=== PATIENT | male | born 1950 | race Caucasian/White ===

== ENCOUNTER → 2016-12-15 | Day surgery (SDC) | payer OTHER, MEDICARE ==
[2016-12-08 12:24] VITALS: Ht 175.3 cm; Wt 97.7 kg
[~2016-12-15] VITALS: Ht 175.3 cm; Wt 97.7 kg
[~2016-12-15] MED LIST: ACIT1CAP PO; ALBUAER2 INH; ASPI81TA28 PO; ASTN NAE; ATOR-26 PO; ATROPINE SULFATE 0.1 MG/ML 5ML SYR IV PRN; BETA0.053 TOP; BUPIVACAINE 0.5 % 5 MG/1 ML MPF 30ML VIAL ONE; CALC-5 PO; CEFAZOLIN 2000 MG/60 ML D5W IV SCH; EPP3/2 IM; EpHEDrine SULFATE INJ 50 MG/ML AMP IV PRN; FENTANYL CITRATE INJ 50 MCG/1 ML 2 ML VIAL IV PRN; FENTANYL CITRATE INJ 50 MCG/1 ML 2 ML VIAL ONE; FLNIN NAE; FLUMAZENIL 0.1 MG/1 ML 10 ML VIAL IV PRN; GABA-113 PO; GLC/500 PO; HYDR-5688 PO; IPRA0.03 NAE; LABETALOL HCL IV 5 MG/ML 20ML IV PRN; LACTATED RINGER'S 1000ML 1,000 ML IV SCH; LEVO150T PO; LIDOCAINE HCL 1% 20 ML VIAL ONE; LIDOCAINE HCL 2% 2 ML VIAL (20MG/ML) ONE; LISI-787 PO; MEPERIDINE HCL 25 MG/ML CARP IV PRN; METO25TA3 PO; MIDAZOLAM HCL 1 MG/ML 2ML VIAL ONE; MOME0.1C33 EXT; NALOXONE HCL 0.4 MG/1 ML VIAL/CARP IV PRN; NTRGSL/4 UT; ONDANSETRON INJ 2 MG/ML 2 ML VIAL IV PRN; OXYCODONE/ACETAMINOPHEN 5-325 TAB PO PRN; PHENYLEPHRINE 100MCG/ML 5ML SYR IV PRN; PIME1CRE9 TOP; PLMIN90 IN; PRLSR20 PO; PROPOFOL IV EMULSION 10 MG/ML 20 ML VIAL IV ONE; PRVIN525X INH; SODIUM CHLORIDE 0.9% 1000ML 1,000 ML IV SCH; TADA10TA PO; TICA1TAB PO; [UNRECOGNIZED DRUG - CODE] TOP
--- NOTE | 2016-12-15 08:29 | History & Physical Bridge - [place] ---
H&P Re-Evaluation Bridge Note: I have examined the patient, reviewed the History & Physical and in the interval since the performance of the History & Physical I have noted the following changes of clinical significance: No changes noted
[2016-12-15 09:58] VITALS: TEMP 36.5
--- NOTE | 2016-12-15 09:59 | [facility] Post Operative Brief Note ---
Immediate Operative Summary Operative Date Dec 15, 2016. Pre-Operative Diagnosis Right Index Finger Mass, Osteoarthritis Post-Operative Diagnosis Same Procedure(s) Performed Right Index Finger Mass Excision, REMOVAL SPUR Surgeon Dr Leyva Compensation Vice President Surgeon(s) Ginna Estrella PA-C Estimated Blood Loss 0ml Findings ABOVE Specimens None Anesthesia LOCAL IV SEDATION Complication(s) None Disposition
--- NOTE | 2016-12-15 10:06 | Discharge Instructions-SurgCtr ---
Discharge Instructions Visit Reason for Visit: Right Index Finger Mass, Osteoarthritis Joint Discharge Discharge Diagnosis / Problem: SAME ABOVE Discharge Goals Goal(s): Decrease discomfort, Improve function Medications Stopped Medications Name(s): METFORMIN. LAST DOSE TUESDAY 12/12 Activity Recommendations Activity Limitations: as noted below Lifting Limitations: until after follow-up appointment Exercise/Sports Limitations: rest today, until after follow-up appointment Shower/Bathe: may shower/bathe in 3 days Anesthesia . Post Anesthesia Instructions: If you have had General Anesthesia or IV Sedation: * Do not drive today. * Resume driving when surgeon permits. * Do not make important decisions or sign legal documents today. * Call surgeon for: 1. Temperature elevations greater than 101 degrees F. 2. Uncontrollable pain. 3. Excessive bleeding. 4. Persistent nausea and vomiting. 5. Medication intolerance (nausea, vomiting or rash). * For nausea and vomiting use only clear liquids such as: tea, soda, bouillon until nausea subsides, then gradually increase diet as tolerated. * If you have any concerns or questions, call your surgeon's office. If physician is unavailable and it is an emergency, call 911 or go to the nearest emergency room. . Instructions / Follow-Up Instructions / Follow-Up MEDICATIONS: * Resume previous medications unless instructed otherwise by your surgeon. * Always take pain medication on a full stomach or with food to avoid upset stomach. * Do not drink alcohol or drive while taking narcotics. * Ibuprofen or Tylenol may be taken if narcotic not needed. SPECIAL CARE INSTRUCTIONS: __ None _X_ Keep extremity elevated and iced x 48 hours; apply ice 20-30 minutes 8-10 times/day. May remove at night. __ Sling __24 hrs/day __ Remove at night __ Shoulder Immobilizer __ 24 hrs/day __ Remove at night _X_ Dressing __ Maintain until seen in office, may shower with plastic over site __ Remove dressings in 36 hours and then may shower _X_ Cover incisions with band-aids after showering __ Do not remove steri-strips Call physician if chills or temperature rises above 102 degrees or pain unrelieved by prescribed pain medications at . LIMIT FLEXION OF RIGHT INDEX FINGER UNTIL SEEN IN THE OFFICE 10-14 DAYS POST OP . Diet Recommendations Home Diet: resume previous diet Procedures Procedures Performed: Right Index Finger Mass Excision, REMOVAL SPUR Medical Emergencies . Who to Call and When: Medical Emergencies: If at any time you feel your situation is an emergency, please call 911 immediately. . Non-Emergent Contact Non-Emergency issues call your: Primary Care Provider . . "Provider Documentation" section prepared by Kvgn Estrella.
--- NOTE | 2016-12-15 10:19 | Anesthesia Progress Nt - [facility] ---
Anesthesia Post Op Note Date & Time Dec 15, 2016 at 10:20 Vital Signs Pain Intensity: 0 Vital Signs Past 12 Hours Date Time Temp Pulse Resp B/P Pulse Ox O2 Delivery O2 Flow Rate FiO2 12/15/16 09:58 36.5 68 16 105/56 98 Room Air 12/15/16 08:16 36.0 65 18 118/67 98 Room Air Notes Mental Status: alert / awake / arousable, participated in evaluation Pt Amnestic to Procedure: Yes Nausea / Vomiting: adequately controlled Pain: adequately controlled Airway Patency, RR, SpO2: stable & adequate BP & HR: stable & adequate Hydration State: stable & adequate Anesthetic Complications: no major complications apparent
--- NOTE | 2016-12-15 10:35 | OPERATIVE REPORT ---
DATE OF OPERATION: 12/15/2016 PREOPERATIVE DIAGNOSIS: Painful mucous cyst, proximal interphalangeal joint, right index finger with associated spur. POSTOPERATIVE DIAGNOSIS: Same. PROCEDURE: Excision of mucous cyst and spur proximal interphalangeal joint, right index finger. SURGEON: Dr. Leyva. HABILITATIVE INTERVENTIONIST: Kvng Estrella PA-C. ANESTHESIOLOGIST: Dr. Navas. ANESTHESIA: Local with IV sedation. DRAINS: None. COMPLICATIONS: None. CONDITION: The patient tolerated the procedure well and returned to the recovery room in apparent satisfactory condition. INDICATIONS FOR SURGERY: Andrew is a 66-year-old male who has had a draining cyst in the dorsal aspect of his PIP joint index finger that has been bothering him for quite some time, elected to go ahead and remove it. The procedure, expected outcomes, side effects, and risks were all explained in detail prior to surgery, explained possible recurrence of 5%. OPERATION AND FINDINGS: PROCEDURE: The patient was taken to the OR at which time he was placed supine on the litter with an arm board. We then anesthetized his finger with 1% Xylocaine. We then prepped and draped in usual sterile fashion for surgery. He was on a blood thinner, without him on that we thought we could do the case stopping it. We then prepped the hand in usual sterile fashion. We used a 5/8 inch [place] drain as a tourniquet and an Esmarch. We Esmarched the finger and then made an oblique incision over the PIP joint. The cyst was a lot smaller than it appeared on the skin. We dissected down into the lateral portion of the tendon where it was coming out of the joint. We removed the cyst in whole. We then went into the interval in the tendon and went into the joint and removed the spur and did a little synovectomy of the PIP joint. Wound then was copiously irrigated. We closed the rent and then the tendon with a 4-0 Vicryl suture. We then used electrocautery to control any areas of bleeding and then closed the skin with 4-0 nylon sutures. We placed a sterile dressing of Xeroform, 2 x 2s, Matt and Coban and returned to recovery room in apparent satisfactory condition. I attest to the content of the Intraoperative Record and any orders documented therein. Any exceptions are noted below. JONNY
[2016-12-15 10:45] VITALS: BP 129/64; PULSE 60; O2SAT 99
== END | disposition home or self-care (01) ==
LOC: X.SURG 07:54
PROVIDERS: ATTEND Orthopaedic Surgery
DX: M25.841 Other specified joint disorders, right hand (principal); M77.9 Enthesopathy, unspecified; M79.644 Pain in right finger(s); I10 Essential (primary) hypertension; E11.9 Type 2 diabetes mellitus without complications; G47.33 Obstructive sleep apnea (adult) (pediatric)

== ENCOUNTER 2023-05-24 07:18 | Observation (INO) ==
--- NOTE | 2023-04-19 10:40 | PAT Medication Instructions ---
Medication Instructions Date of Service April 19, 2023 Home Medications Medication Instructions Recorded Margoth Vazquez #1 ea 03/24/23 acitretin 10 mg capsule 10 mg PO QAM albuterol sulfate 2.5 mg/3 mL (0.083 %) solution for nebulization 2.5 mg inhal ation QID PRN albuterol sulfate 90 mcg/actuation aerosol inhaler 1 puff inhalation Q6H PRN aspirin 81 mg tablet,delayed release 81 mg PO QAM atorvastatin 80 mg tablet 80 mg PO QDD azelastine 205.5 mcg (0.15 %) nasal spray 2 spray intranasal BID betamethasone dipropionate 0.05 % topical ointment 1 applic topical UD calcipotriene 0.005 % topical cream 1 applic topical UD calcium carbonate 500 mg-vitamin D3 5 mcg (200 unit) tablet (Oyster Shell Calcium-Vitamin D3) 2 tab PO QAM cetirizine 10 mg tablet 10 mg PO QAM epinephrine 0.3 mg/0.3 mL injection syringe 0.3 mg IM Q3H PRN fluocinolone acetonide oil 0.01 % ear drops 5 drp otic (ear) 2XWK lisinopril 20 mg-hydrochlorothiazide 12.5 mg tablet 1 tab PO QAM metformin 500 mg tablet 500 mg PO BID metoprolol succinate 25 mg tablet,extended release 24 hr 25 mg PO QAM nitroglycerin 0.4 mg sublingual tablet 0.4 mg sublingual UD PRN omeprazole 20 mg tablet,delayed release 20 mg PO HS levothyroxine 175 mcg tablet 175 mcg PO QAM amoxicillin 875 mg-potassium clavulanate 125 mg tablet 1 tab PO BID budesonide 0.5 mg/2 mL suspension for nebulization 0.5 mg irrigation QAM fluticasone furoate 200 mcg-vilanterol 25 mcg/dose inhalation powder (Breo Ellipta) 1 inh inhalation QAM guaifenesin 1,200 mg tablet, extended release 12 hr (Mucinex) 1,200 mg PO BID montelukast 10 mg tablet (Singulair) 10 mg PO PM tamsulosin 0.4 mg capsule 0.4 mg PO QPM Continue as directed atorvastatin 80 mg tablet 80 mg PO QDD fluocinolone acetonide oil 0.01 % ear drops 5 drp otic (ear) 2XWK nitroglycerin 0.4 mg sublingual tablet 0.4 mg sublingual UD PRN(if needed) epinephrine 0.3 mg/0.3 mL injection syringe 0.3 mg IM Q3H PRN(if needed) STOP taking 2 weeks before surgery (or as soon as possible if surgery is within 2 weeks) acitretin 10 mg capsule 10 mg PO QAM-unless directed otherwise by prescribing provider STOP taking 24 hours before surgery betamethasone dipropionate 0.05 % topical ointment 1 applic topical UD calcipotriene 0.005 % topical cream 1 applic topical UD DO NOT take the morning of surgery calcium carbonate 500 mg-vitamin D3 5 mcg (200 unit) tablet (Oyster Shell Calcium-Vitamin D3) 2 tab PO QAM cetirizine 10 mg tablet 10 mg PO QAM lisinopril 20 mg-hydrochlorothiazide 12.5 mg tablet 1 tab PO QAM metformin 500 mg tablet 500 mg PO BID guaifenesin 1,200 mg tablet, extended release 12 hr (Mucinex) 1,200 mg PO BID Take morning of surgery With a small sip of water, OTHERWISE NOTHING TO EAT OR DRINK AFTER MIDNIGHT: albuterol sulfate 2.5 mg/3 mL (0.083 %) solution for nebulization 2.5 mg inhalation QID PRN(if needed) albuterol sulfate 90 mcg/actuation aerosol inhaler 1 puff inhalation Q6H PRN(use if needed; please bring with you to hospital day of surgery if possible) aspirin 81 mg tablet,delayed release 81 mg PO QAM (unless directed otherwise by surgeon) azelastine 205.5 mcg (0.15 %) nasal spray 2 spray intranasal BID metoprolol succinate 25 mg tablet,extended release 24 hr 25 mg PO QAM levothyroxine 175 mcg tablet 175 mcg PO QAM amoxicillin 875 mg-potassium clavulanate 125 mg tablet 1 tab PO BID budesonide 0.5 mg/2 mL suspension for nebulization 0.5 mg irrigation QAM fluticasone furoate 200 mcg-vilanterol 25 mcg/dose inhalation powder (Breo Ell ipta) 1 inh inhalation QAM Take evening before surgery albuterol sulfate 2.5 mg/3 mL (0.083 %) solution for nebulization 2.5 mg inhalation QID PRN(if needed) albuterol sulfate 90 mcg/actuation aerosol inhaler 1 puff inhalation Q6H PRN(use if needed; please bring with you to hospital day of surgery if possible) azelastine 205.5 mcg (0.15 %) nasal spray 2 spray intranasal BID metformin 500 mg tablet 500 mg PO BID omeprazole 20 mg tablet,delayed release 20 mg PO HS amoxicillin 875 mg-potassium clavulanate 125 mg tablet 1 tab PO BID guaifenesin 1,200 mg tablet, extended release 12 hr (Mucinex) 1,200 mg PO BID montelukast 10 mg tablet (Singulair) 10 mg PO PM tamsulosin 0.4 mg capsule 0.4 mg PO QPM Other Notes If you have any questions please call us at [phone] or [phone] or [phone] or [phone]
--- NOTE | 2023-04-23 08:19 | Anesthesiology Consultation ---
Date of Service April 23, 2023 Assessment & Plan (1) Encounter for pre-operative examination: - Check BSG AM DOS - COVID screening: Per assessment on 04/23: No known COVID-19 positive contacts or current COVID-19 related symptoms. Travel screen negative. Patient vaccinated. At surgeon discretion if preop Covid testing being done. - Outpatient joint assessment: Pt currently scheduled for inpatient pathway. If surgeon requests review for outpatient joint pathway, patient is not recommended candidate for outpatient joint program from anesthesia standpoint. - Cardiology visit (03/26/23): "Patient anticipates upcoming right total knee arthroplasty end of April 2023. He presents today feeling relatively well. He is limited by right knee pain. Not as active as he would like to be. He reports mild shortness of breath with activities but feels this is due to deconditioning and weight. He reports intermittent left-sided chest discomfort described as an ache. Comes and goes randomly. Not associated with exertion. No radiation. No associated symptoms.. EKG performed today and reviewed personally: Normal sinus rhythm with occasional PVC.. Possible voltage criteria for LVH.. Compared with prior EKG, PVCs now present and nonspecific T-wave abnormality now evident in lateral leads.. recommend dobutamine stress echo for further risk stratification and R/O inducible ischemia. Patient not able to ambulate on treadmill due to knee pain.. Celiac artery dissection.. Dobutamine stress echo prior to knee surgery given history of CAD, dyspnea/atypical chest pain. Repeat fasting lipid panel fall 2022. If LDL continues to increase, add Zetia. Continue atorvastatin." - Awaiting cardiology-ordered stress test (CLAUDIO watt, scheduled 04/29) + final cardiology recommendations (CLAUDIO watt). Chart Review Chart Review: Patient seen in Pre Admission Testing Teaching & Discussion Pre-Anesthesia Teaching/Discussion Notes: Instructed NPO after midnight before surgery,except medications with 15 cc of water. Medication instructions provided according to the PAT guidelines. History Surgery Operation Date: 05/24/23 08:25 Proposed Procedures p Right Total Knee Arthroplasty - Kvng Ramos DO Height/Weight Height: 5 ft 9 in Weight: 110.4 kg Allergies Allergy/AdvReac Type Severity Reaction Status Date / Time bee venom protein (honey bee) Allergy Severe Lung field Verified 04/21/23 13:21 filled with fluid hornet venom Allergy Severe Anaphylaxis Verified 04/16/23 09:01 adhesive Allergy Mild Red rash Verified 04/21/23 13:21 morphine AdvReac Severe Fever, BP Verified 04/21/23 13:21 Medications Home Medications Medication Instructions Recorded Confirmed Last Taken acitretin 10 mg capsule 10 mg PO QAM 04/14/19 04/16/23 04/16/21 albuterol sulfate 2.5 mg/3 mL 2.5 mg inhalation QID PRN SOB 04/14/19 04/16/23 04/18/19 (0.083 %) solution for nebulization albuterol sulfate 90 mcg/actuation 1 puff inhalation Q6H PRN SOB 04/14/19 04/16/23 04/18/19 aerosol inhaler aspirin 81 mg tablet,delayed 81 mg PO QAM 04/14/19 04/16/23 04/16/21 release atorvastatin 80 mg tablet 80 mg PO QDD 04/14/19 04/16/23 03/20/21 azelastine 205.5 mcg (0.15 %) 2 spray intranasal BID 04/14/19 04/16/23 03/21/21 nasal spray betamethasone dipropionate 0.05 % 1 applic topical UD 04/14/19 04/16/23 03/20/21 topical ointment calcipotriene 0.005 % topical cream 1 applic topical UD 04/14/19 04/16/23 03/16/21 calcium carbonate 500 mg-vitamin 2 tab PO QAM 04/14/19 04/16/23 04/16/21 D3 5 mcg (200 unit) tablet (Oyster Shell Calcium-Vitamin D3) cetirizine 10 mg tablet 10 mg PO QAM 04/14/19 04/16/23 04/16/21 epinephrine 0.3 mg/0.3 mL 0.3 mg IM Q3H PRN BEE STINGS 04/14/19 04/16/23 Unknown injection syringe fluocinolone acetonide oil 0.01 % 5 drp otic (ear) 2XWK 04/14/19 04/16/23 04/18/19 ear drops lisinopril 20 1 tab PO QAM 04/14/19 04/16/23 04/16/21 mg-hydrochlorothiazide 12.5 mg tablet metformin 500 mg tablet 500 mg PO BID 04/14/19 04/16/23 04/16/21 metoprolol succinate 25 mg 25 mg PO QAM 04/14/19 04/16/23 04/16/21 tablet,extended release 24 hr nitroglycerin 0.4 mg sublingual 0.4 mg sublingual UD PRN Chest Pain 04/14/19 04/16/23 03/21/21 tablet 1 tablet omeprazole 20 mg tablet,delayed 20 mg PO HS 04/14/19 04/16/23 04/16/21 release levothyroxine 175 mcg tablet 175 mcg PO QAM 03/21/21 04/16/23 04/16/21 Wheeled Walker #1 ea 03/24/23 03/24/23 Unknown budesonide 0.5 mg/2 mL suspension 0.5 mg irrigation QA 04/16/23 04/16/23 Unknown for nebulization fluticasone furoate 200 1 inh inhalation QA 04/16/23 04/16/23 Unknown mcg-vilanterol 25 mcg/dose inhalation powder (Breo Ellipta) guaifenesin 1,200 mg tablet, 1,200 mg PO BID 04/16/23 04/16/23 Unknown extended release 12 hr (Mucinex) montelukast 10 mg tablet 10 mg PO PM 04/16/23 04/16/23 Unknown (Singulair) tamsulosin 0.4 mg capsule 0.4 mg PO QPM 04/16/23 04/16/23 Unknown Past Medical History Medical History Asthma CAD (coronary artery disease) 2016 > stent x1 Follows with Dr. 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, initiated ASA/statin [facility] Vascular monitoring, stable/asymptomatic Chronic sinusitis CKD (chronic kidney disease) Stage 3 DM type 2 (diabetes mellitus, type 2) NIDDM GERD (gastroesophageal reflux disease) Hard of hearing History of basal cell cancer History of COVID-19 x2 Most recent 08/2022- given paxlovid > resolved History of migraine headaches History of myocardial infarction 2016 History of thyroid cancer s/p thyroidectomy/radiation HTN (hypertension) Hyperlipidemia Osteoarthritis Psoriasis Ruptured lumbar disc Sleep apnea CPAP (compliant) Tinnitus Exercise / Class Metabolic Activity III < 4 Walking/Shop/Light housework Past Family History Family History Father Family history of diabetes mellitus Other No family history of adverse response to anesthesia Past Surgical History Surgical History H/O nasal septoplasty + sinuplasty History of arthroscopy of left knee X 2 History of basal cell carcinoma (BCC) excision History of cardiac cath 2016 > stent x1 History of cataract surgery R/L History of colonoscopy History of esophagogastroduodenoscopy (EGD) History of prostate surgery History of removal of cyst Right index finger (+ bone spur) History of repair of anterior cruciate ligament of left knee History of surgery Removal of benign testicular growth History of thyroidectomy History of tonsillectomy History of umbilical hernia repair History of vasectomy Hx of arthroscopy of right knee x2 S/P orchiopexy Status post biopsy of thyroid gland Past Anesthesia History No Hx of Anesthesia Complications and No Family Hx of Anesthesia Complications History of PONV No Hx of PONV and No Hx of Motion Sickness Social History Smoking Status: Former smoker Do You Dip or Chew Tobacco: No Smoking End Date: Quit 1968 Hx Alcohol Use: Yes Alcohol type: beer and hard liquor alcohol intake frequency: holidays/special occasions only Hx Substance Use: No substance use type: does not use Review of Systems Patient denies chest pain, shortness of breath, fever, chills, cough, wheezing, palpitations. Physical Exam Vital Signs VITALS BP 155/701 P 67 TEMP 97.8 SP02 95%RA RESP 18 PHYSICAL Full cervical extension range of motion. Full TMJ range of motion. TMD 3 finger breaths Mallampati Score 3 Dentition: upper partial Lungs: clear throughout to auscultation Cardiac: regular rate and rhythm, no murmurs noted Spine: normal Carotid arteries: negative bruit Extremities: no LE edema Large moustache Lab Results Anesthesia Preop Results Results Anesthesia Widget: WBC 7.06 K/ul (4.8-10.8) 04/23/23 Hgb 13.7 g/dl (14.0-18.0) L 04/23/23 Hct 41.3 % (42.0-52.0) L 04/23/23 Plt 198 K/uL (130-400) 04/23/23 Na 136 mmol/L (136-145) 04/23/23 K 4.0 mmol/L (3.5-5.1) 04/23/23 Cl 101 mmol/L (98-107) 04/23/23 CO2 29 mmol/L (21-32) 04/23/23 BUN 22 mg/dl (6-23) 04/23/23 Creat 0.87 mg/dl (0.6-1.4) 04/23/23 Glucose Level 156 mg/dl (70-99(Fasting)) H 04/23/23 PT 10.6 Seconds (9.0-12.0) 04/23/23 PTT 29.1 Seconds (21.0-31.0) 04/23/23 INR 1.0 (0.9-1.1) 04/23/23 HA1c 6.2 % (4.5-5.6) H 04/23/23 Blood Type O Positive 04/23/23 Antibody Screen NEGATIVE 04/23/23 Testing Electrocardiogram Date: 03/26/23 SR with occasional PVCs at 85bpm. Moderate voltage criteria for LVH, may be normal variant. Chest X-Ray Date: 08/26/22 Findings: + NAD Right-sided pleural thickening appears similar Compared to a prior study and is secondary to subpleural flat noted on prior CT. Redemonstration of few bilateral calcified granulomas. Lungs are otherwise clear with sharp costophrenic angles. No pneumothorax or effusion. Cardiac Catheterization Date: 06/15/16 The index artery for the non-STEMI is a very small second marginal branch from the left circumflex artery, which is not amenable to intervention. An incidental finding is a significant 80% stenosis of the proximal LAD at the takeoff of the diagonal branch, consistent with a complex bifurcation lesion. Recommendations: For the patient to undergo coronary intervention. Transferred to [facility] and stent placed* COVID-19 Risk Screen Screening Information COVID-19 Screen Date: 04/23/23 Exposure 21 Days Family/Household +COVID Last 21 Days: No Exposure 10 Days Any COVID Exposure Last 10 Days: No Symptoms Last 10 Days Experienced COVID Sx Last 10 Days: No + COVID 0-90 Days COVID + in Last 0-90 Days: No
--- NOTE | 2023-05-20 10:33 | History & Physical Report ---
Date of Service May 20, 2023 Assessment & Plan (1) Osteoarthritis of right knee: We will proceed with a right total knee arthroplasty. Postoperatively he will be started on aspirin for DVT prophylaxis and kept overnight in the hospital for postop medical management. He plans to use energy physical therapy upon discharge. History of Present Illness Chief Complaint: Osteoarthritis of the right knee. Primary Care Provider: Christopher Jordan MD Andrew is a pleasant 73-year-old male, who has been dealing with lifetime chronic right knee pain. He was not able to go into [place] because of his right knee pain. It has waxed and waned over the years. It has been really bad over the past year. He has trouble ambulating. He cannot go up and down hills. He cannot do activities that he enjoys. He has been seeing my partners and has had multiple cortisone injections and viscosupplementation. He is still struggling with the knee. X-rays and clinical examination been diagnostic for chronic worsening osteoarthritis of the right knee. After failing conservative treatment, he has elected proceed with a right total knee arthroplasty. Allergies Allergy/AdvReac Type Severity Reaction Status Date / Time bee venom protein (honey bee) Allergy Severe Lung field Verified 04/21/23 13:21 filled with fluid hornet venom Allergy Severe Anaphylaxis Verified 04/16/23 09:01 adhesive Allergy Mild Red rash Verified 04/21/23 13:21 morphine AdvReac Severe Fever, BP Verified 04/21/23 13:21 Home Medications Medication Instructions Recorded Confirmed Type acitretin 10 mg capsule 10 mg PO QAM 04/14/19 04/16/23 History albuterol sulfate 2.5 mg/3 mL 2.5 mg inhalation QID PRN SOB 04/14/19 04/16/23 History (0.083 %) solution for nebulization albuterol sulfate 90 mcg/actuation 1 puff inhalation Q6H PRN SOB 04/14/19 04/16/23 History aerosol inhaler aspirin 81 mg tablet,delayed 81 mg PO QAM 04/14/19 04/16/23 History release atorvastatin 80 mg tablet 80 mg PO QDD 04/14/19 04/16/23 History azelastine 205.5 mcg (0.15 %) 2 spray intranasal BID 04/14/19 04/16/23 History nasal spray betamethasone dipropionate 0.05 % 1 applic topical UD 04/14/19 04/16/23 History topical ointment calcipotriene 0.005 % topical cream 1 applic topical UD 04/14/19 04/16/23 History calcium carbonate 500 mg-vitamin 2 tab PO QAM 04/14/19 04/16/23 History D3 5 mcg (200 unit) tablet (Oyster Shell Calcium-Vitamin D3) cetirizine 10 mg tablet 10 mg PO QAM 04/14/19 04/16/23 History epinephrine 0.3 mg/0.3 mL 0.3 mg IM Q3H PRN BEE STINGS 04/14/19 04/16/23 History injection syringe fluocinolone acetonide oil 0.01 % 5 drp otic (ear) 2XWK 04/14/19 04/16/23 History ear drops lisinopril 20 1 tab PO QAM 04/14/19 04/16/23 History mg-hydrochlorothiazide 12.5 mg tablet metformin 500 mg tablet 500 mg PO BID 04/14/19 04/16/23 History metoprolol succinate 25 mg 25 mg PO QAM 04/14/19 04/16/23 History tablet,extended release 24 hr nitroglycerin 0.4 mg sublingual 0.4 mg sublingual UD PRN Chest Pain 04/14/19 04/16/23 History tablet omeprazole 20 mg tablet,delayed 20 mg PO HS 04/14/19 04/16/23 History release levothyroxine 175 mcg tablet 175 mcg PO QAM 03/21/21 04/16/23 History Wheeled Walker #1 ea 03/24/23 03/24/23 Rx budesonide 0.5 mg/2 mL suspension 0.5 mg irrigation QAM 04/16/23 04/16/23 History for nebulization fluticasone furoate 200 1 inh inhalation QAM 04/16/23 04/16/23 History mcg-vilanterol 25 mcg/dose inhalation powder (Breo Ellipta) guaifenesin 1,200 mg tablet, 1,200 mg PO BID 04/16/23 04/16/23 History extended release 12 hr (Mucinex) montelukast 10 mg tablet 10 mg PO PM 04/16/23 04/16/23 History (Singulair) tamsulosin 0.4 mg capsule 0.4 mg PO QPM 04/16/23 04/16/23 History Past Med/Surg History Medical History Asthma CAD (coronary artery disease) 2016 > stent x1 Follows with Dr. 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, initiated ASA/statin [facility] Vascular monitoring, stable/asymptomatic Chronic sinusitis CKD (chronic kidney disease) Stage 3 DM type 2 (diabetes mellitus, type 2) NIDDM GERD (gastroesophageal reflux disease) Hard of hearing History of basal cell cancer History of COVID-19 x2 Most recent 08/2022- given paxlovid > resolved History of migraine headaches History of myocardial infarction 2016 History of thyroid cancer s/p thyroidectomy/radiation HTN (hypertension) Hyperlipidemia Osteoarthritis Psoriasis Ruptured lumbar disc Sleep apnea CPAP (compliant) Tinnitus Surgical History H/O nasal septoplasty + sinuplasty History of arthroscopy of left knee X 2 History of basal cell carcinoma (BCC) excision History of cardiac cath 2016 > stent x1 History of cataract surgery R/L History of colonoscopy History of esophagogastroduodenoscopy (EGD) History of prostate surgery History of removal of cyst Right index finger (+ bone spur) History of repair of anterior cruciate ligament of left knee History of surgery Removal of benign testicular growth History of thyroidectomy History of tonsillectomy History of umbilical hernia repair History of vasectomy Hx of arthroscopy of right knee x2 S/P orchiopexy Status post biopsy of thyroid gland Family History Father Family history of diabetes mellitus Other No family history of adverse response to anesthesia Social History Smoking Status: Former smoker Second Hand Exposure: No; Do You Dip or Chew Tobacco: No; Hx Alcohol Use: Yes Alcohol type: beer and hard liquor Hx Substance Use: No Preferred Language: Indonesian Communication Ability: Effective Sales Development Associate Required: No Beliefs That Will Affect Care: None Current Living Situation: Spouse Feels Safe at Home: Yes Assistive Devices: Cane, CPAP, Denture - Upper, Glasses, Hearing Aid - Bilateral and Nebulizer Review of Systems All systems reviewed & are unremarkable except as noted in HPI & below. Physical Exam On physical examination of right knee, he has a slight varus deformity. He has tenderness palpation of the distal medial femoral condyle and over the medial joint line.. Constitutional WD/WN, vitals as above Eyes PERRL, conjunctivae normal, anicteric sclerae ENMT external ear and nose normal, oropharynx normal Neck trachea midline, no thyromegaly Respiratory normal respiratory effort, lungs clear to auscultation Cardiovascular RRR, no murmur, no edema Gastrointestinal (Abdomen) normal bowel sounds, soft, nontender, no hepatosplenomegaly Skin no rashes, warm and dry Psychiatric A+Ox3, euthymic affect Results & Data Results & Data Laboratory Results . Diagnostic Findings X-rays of the right knee show advanced medial compartment arthritis with joint space narrowing, osteophyte formation, and biva-lo-yndv articulation. PG Care Time/CCT Total # of Minutes Spent Total Time Spent with Patient: Total time spent is greater than 50% in coordination of care (as documented) at patient's floor/unit and/or counseling patient: Coding Level of Care Code None Diagnoses Osteoarthritis of right knee M17.11
[~2023-05-24 07:18] MED LIST changes: +ACETAMINOPHEN 500 MG TAB PO SCH; -ACIT1CAP PO; -ALBUAER2 INH; -ASPI81TA28 PO; -ASTN NAE; -ATOR-26 PO; -ATROPINE SULFATE 0.1 MG/ML 5ML SYR IV PRN; -BETA0.053 TOP; -BUPIVACAINE 0.5 % 5 MG/1 ML MPF 30ML VIAL ONE; +BUPIVACAINE 0.5 % 5 MG/1 ML PF 10ML VIAL ONE; -CALC-5 PO; -CEFAZOLIN 2000 MG/60 ML D5W IV SCH; -EPP3/2 IM; -EpHEDrine SULFATE INJ 50 MG/ML AMP IV PRN; +FAMOTIDINE 20 MG TAB PO SCH; -FENTANYL CITRATE INJ 50 MCG/1 ML 2 ML VIAL IV PRN; -FENTANYL CITRATE INJ 50 MCG/1 ML 2 ML VIAL ONE; -FLNIN NAE; -FLUMAZENIL 0.1 MG/1 ML 10 ML VIAL IV PRN; -GABA-113 PO; +GABAPENTIN 300 MG CAP PO SCH; -GLC/500 PO; -HYDR-5688 PO; -IPRA0.03 NAE; -LABETALOL HCL IV 5 MG/ML 20ML IV PRN; -LACTATED RINGER'S 1000ML 1,000 ML IV SCH; -LEVO150T PO; -LIDOCAINE HCL 1% 20 ML VIAL ONE; -LIDOCAINE HCL 2% 2 ML VIAL (20MG/ML) ONE; -LISI-787 PO; +LR 500ML BOLUS, THEN 15ML/HR IV SCH; +LR 60ML/HR IV SCH; -MEPERIDINE HCL 25 MG/ML CARP IV PRN; -METO25TA3 PO; -MIDAZOLAM HCL 1 MG/ML 2ML VIAL ONE; -MOME0.1C33 EXT; -NALOXONE HCL 0.4 MG/1 ML VIAL/CARP IV PRN; -NTRGSL/4 UT; -ONDANSETRON INJ 2 MG/ML 2 ML VIAL IV PRN; +ORTHO JOINT MIX INFIL SCH; -OXYCODONE/ACETAMINOPHEN 5-325 TAB PO PRN; -PHENYLEPHRINE 100MCG/ML 5ML SYR IV PRN; -PIME1CRE9 TOP; -PLMIN90 IN; -PRLSR20 PO; -PROPOFOL IV EMULSION 10 MG/ML 20 ML VIAL IV ONE; -PRVIN525X INH; +ROPIVACAINE 0.5% 5 MG/ML 30 ML VIAL ONE; -SODIUM CHLORIDE 0.9% 1000ML 1,000 ML IV SCH; -TADA10TA PO; -TICA1TAB PO; +TRANEXAMIC ACID 1,000 MG **IV Intra-op IV SCH; +TRANEXAMIC ACID 1,000 MG **IV Pre-op IV SCH; -[UNRECOGNIZED DRUG - CODE] TOP; +ceFAZolin 2000MG 2,000 MG/15 ML SYR IV SCH; +dexAMETHasone 4 MG TAB PO SCH
[2023-05-24] MEDS ORDERED: MIDAZOLAM HCL 1 MG/ML 2ML VIAL ONE (08:51)
[2023-05-24] MEDS ORDERED: fentaNYL citrate PF 100 MCG/2 ML VIAL ONE (08:51)
--- NOTE | 2023-05-24 09:09 | History & Physical Bridge Note ---
Date of Service May 24, 2023 History & Physical Bridge Note I have examined the patient, reviewed the History & Physical and in the interval since the performance of the History & Physical I have noted the following changes of clinical significance: no changes noted
[2023-05-24] MEDS ORDERED: ALBUTEROL 0.083% NEBU SOLN 3 ML VIAL INH PRN ×2 (09:11→13:35)
[2023-05-24] MEDS ORDERED: HYDROmorphone INJ 1 MG/ML SYRINGE IV PRN (09:11)
[2023-05-24] MEDS ORDERED: fentaNYL citrate PF 100 MCG/2 ML VIAL IV PRN (09:11)
[2023-05-24] MEDS ORDERED: ePHEDrine sulfate 50 MG/ML AMP IV PRN (09:11)
[2023-05-24] MEDS ORDERED: ATROPINE SULFATE 0.1 MG/ML 10ML SYR IV PRN (09:11)
[2023-05-24] MEDS ORDERED: ONDANSETRON INJ 2 MG/ML 2 ML VIAL IV PRN ×2 (09:11→13:35)
[2023-05-24] MEDS ORDERED: MEPERIDINE HCL 25 MG/ML CARP/VIAL IV PRN (09:11)
[2023-05-24] MEDS ORDERED: ORTHO JOINT ANESTHETIC ONE (09:31)
[2023-05-24] MEDS ORDERED: LIDOCAINE 2% 2 ML VIAL/AMP(20MG/ML) INFIL ONE (10:49)
[2023-05-24] MEDS ORDERED: PROPOFOL IV EMULSION 10 MG/ML 20 ML VIAL IV ONE (10:49)
--- NOTE | 2023-05-24 11:18 | Operative Report ---
PG Post Operative Report Pre & Post Diagnosis Operation Date: 05/24/23 10:00 Pre-Op Diagnosis: Osteoarthritis of right knee Post-Op Diagnosis: Osteoarthritis of right knee I identified the patient and participated in the time-out.: Yes Procedure Operation Date: 05/24/23 10:00 Actual Procedures p Right Total Knee Arthroplasty(Right) - Kvng Ramos DO Surgeon Kvng Ramos DO Process Control Manager Kvng Estrella PA-C Estimated Blood Loss 30 Findings Consistent with Post-Op Diagnosis Specimens Right femoral tibial bone Description of Procedure Implants used: I used a [employer] total knee arthroplasty system with a size 9 standard femur, F tibia, 34 oval patella, and a size 13 medial congruent polyethylene bearing. All components were cemented in place with Biomet cement. Andrew kendrick [facility] for the above procedure. He was seen in the preoperative holding area and the operative extremity was identified and signed. He was given a preoperative antibiotic, TXA, a spinal anesthetic and an adductor nerve block. He was taken back to the operating room and laid on the table in supine position. He was given basic sedation. The operative knee was then prepped and draped in sterile fashion. A timeout was done, and the patient and the operative extremity was properly identified. A midline incision was made directly over the patella. Dissection was taken down to the extensor mechanism. A midvastus arthrotomy was used. The medial retinaculum was released and the fat pad was mostly excised. The knee was flexed and the ACL, PCL, and meniscus were removed. A drill was sent down the center of the femoral canal followed by an intramedullary misa. Off that misa a distal femoral cutting block was placed. 9 mm was resected off the distal femur at 5 of valgus. A posterior referencing AP sizing guide was then placed on the distal femur. The femur measured to be a size 9. 2 drill holes were placed in 3 of external rotation. A 4-in-1 cutting block was then impacted into place. Anterior, posterior, and chamfer cuts were then made. The proximal tibia was then exposed. An external tibial alignment guide was placed. A tibial cut guide was then anchored in place and the proximal tibia was then resected. The posterior aspect of the knee was then opened up and any additional meniscus fragments and osteophytes were removed. The tibia measured to be a size F. The tibial plate was then placed in the appropriate rotation and the tibia was drilled and punched. Trial components were then placed. I used a size 13 medial congruent polyethylene insert. The knee was brought through a full range of motion and felt to be stable. The peg holes for the femoral component were then drilled. The patella was then everted and 9 mm was resected off the posterior aspect of the patella. The patella measured to be a size 34 oval. 3 peg holes were then drilled. A trial patella was placed. The knee was once again brought through a full range of motion and felt to be stable. Trial components were then removed. The surrounding soft tissues were injected with 100 cc of an orthopedic pain control cocktail. All components were then cemented into place with Biomet cement. The final polyethylene insert was then snapped into place. Once cement was dry the tourniquet was deflated. Hemostasis was obtained. A dilute betadyne lavage was then done for 3 minutes. The joint was then irrigated with normal saline solution. The midvastus arthrotomy was then closed with #1 Vicryl suture. The skin was closed with 2-0 Vicryl, 3-0V lock suture, and pasha. A soft compressive dressing was placed. He was then transferred to a hospital bed and taken to the postanesthesia care unit in stable condition. He tolerated the procedure well. Kvng Estrella PA-C, was present for the entire procedure. He was critical for patient positioning, prepping, draping, retraction exposure, wound closure and application of sterile dressing. I attest to the content of the Intraoperative Record and any orders documented therein. Any exceptions are noted below.
--- NOTE | 2023-05-24 12:22 | Anesthesiology Progress Note ---
Date of Service May 24, 2023 Anesthesia Post Procedure Vital Signs Vital Signs: Temp Pulse Pulse Resp BP Pulse Ox O2 Del Method 05/24/23 12:20 36.1 C L 65 12 131/60 96 Room Air 05/24/23 12:10 63 13 127/61 95 Room Air 05/24/23 12:00 65 15 119/85 98 Room Air 05/24/23 11:50 60 15 123/58 L 100 Oxymask 05/24/23 11:40 36 C L 69 21 117/61 99 Oxymask 05/24/23 07:24 36.7 C 68 18 133/64 97 Room Air 05/24/23 07:24 Room Air O2 Flow Rate 05/24/23 12:20 05/24/23 12:10 05/24/23 12:00 05/24/23 11:50 5 05/24/23 11:40 5 05/24/23 07:24 05/24/23 07:24 Notes Mental Status: alert / awake / arousable Patient Amnestic to Procedure: Yes Nausea / Vomiting: adequately controlled Pain: adequately controlled Airway Patency, RR, SpO2: stable & adequate BP & HR: stable & adequate Hydration State: stable & adequate Neuraxial Anesthesia: was administered and sensory block is resolving Anesthetic Complications: no major complications apparent
--- NOTE | 2023-05-24 12:50 | XRay Report ---
XR knee RT 1 or 2V routine HISTORY: 73 years-old Male Surgical Post Op right knee arthroplasty COMPARISON: 03/24/2023 TECHNIQUE: 2 views of the right knee FINDINGS: Total joint arthroplasty with patellar resurfacing. Anterior midline skin pasha are present along w ith expected postoperative soft tissue swelling and deep tissue air. No acute fracture, dislocation o r unexpected opaque foreign body. IMPRESSION: Total joint arthroplasty with expected postoperative changes. ACT 112: Negative or not required by law. The above report was generated using voice recognition software. It may contain grammatical, syntax o r spelling errors. Electronically signed by: Michael Jaimes M.D. 05/24/2023 12:49 PM
[2023-05-24] MEDS ORDERED: MAGNESIUM HYDROXIDE SUSP 30 ML UDC PO PRN (13:35)
[2023-05-24] MEDS ORDERED: HYDROmorphone INJ 0.5 MG/0.5 ML SYR IV PRN (13:35)
[2023-05-24] MEDS ORDERED: NALOXONE HCL 0.4 MG/1 ML VIAL/CARP IV PRN (13:35)
[2023-05-24] MEDS ORDERED: EPINEPHRINE 0.3 MG/0.3 ML IM PRN (13:35)
[2023-05-24] MEDS ORDERED: NITROGLYCERIN SL 0.4 MG/TAB TAB SL PRN (13:35)
[2023-05-24] MEDS ORDERED: ALBUTEROL HFA 8 GM INHALER INH PRN (13:35)
[2023-05-24] MEDS ORDERED: PHARMACY GLYCEMIC MGMT CONSULT PRN (13:35)
[2023-05-24] MEDS ORDERED: bisacodyL 10 MG SUPP PR PRN (13:35)
[2023-05-24] MEDS ORDERED: METOCLOPRAMIDE HCL INJ 5 MG/ML 2 ML VIAL IV PRN (13:35)
--- NOTE | 2023-05-24 14:07 | Pharmacy Report ---
Pharmacy Glycemic Short Note 2 - Date of Service May 24, 2023 - Glycemic Short BSG Results (Last 24 hours): 05/24/23 05/24/23 07:53 11:42 POC Glucose 146 H 162 H OUTPATIENT ANTIDIABETIC REGIMEN: * metformin 500 mg PO BID * HbA1C = 6.2% (04/23/23) ASSESSMENT: * Mr Forde is a 73 y/o M with a PMH of T2DM who presents for R knee surgery. Patient received PO dexamethasone 8 mg preop. * Preop BSG was 146 mg/dL. Postop BSG was 162 mg/dL. * For steroid hyperglycemia, will give NPH 40 units (0.4 units/kg) x 1. * Novolog weight-based stress of 3. * Hold metformin until at least 24 hours postop. PLAN FOR INPATIENT GLYCEMIC CONTROL: * Hold outpatient oral diabetes medications * Basal insulin * NPH 40 units SQ x 1 * Bolus insulin * NovoLog per scale ACHS or Q6hrs while NPO * Goal Range: Low 110 mg/dL - High 140 mg/dL * Correction Factor: 15 mg/dL/unit * Nutritional / Prandial insulin per carb ratio of 1 unit per 5 grams CHO consumed
[2023-05-24] MEDS: SODIUM CHLORIDE 0.9% 1000ML 1,000 ML IV SCH (14:13)
[2023-05-24] MEDS: ACETAMINOPHEN 500 MG TAB PO SCH ×2 (14:14→21:17)
[2023-05-24] MEDS ORDERED: GLUCOSE 40% GEL 15 GM TUBE PO PRN (14:15)
[2023-05-24] MEDS ORDERED: CARBOHYDRATES FOR HYPOGLYCEMIA PO PRN (14:15)
[2023-05-24] MEDS ORDERED: GLUCOSE 10 TAB/TUBE PO PRN (14:15)
[2023-05-24] MEDS ORDERED: DEXTROSE 50% 50 ML SYRINGE IV PRN (14:15)
[2023-05-24] MEDS ORDERED: GLUCAGON FOR INJ 1 MG VIAL IM PRN (14:15)
[2023-05-24] MEDS: KETOROLAC TROMETHAMINE 15 MG/ML VIAL IV SCH ×2 (14:17→21:13)
[2023-05-24] MEDS: INSULIN ASPART PER UNIT CHARGE SC SCH ×3 (14:25→21:22)
[2023-05-24] MEDS ORDERED: NovoLIN-N (NPH) PER UNIT CHARGE SQ ONE (14:30)
[2023-05-24] MEDS ORDERED: [UNRECOGNIZED DRUG - REMARK] SCH (16:00)
[2023-05-24] MEDS ORDERED: ATORVASTATIN 40 MG TAB PO SCH (16:30)
[2023-05-24] MEDS: ceFAZolin 2000MG 2,000 MG/15 ML SYR IV SCH (17:15)
[2023-05-24] MEDS: oxyCODONE HCL IR 5 MG TAB (IMMEDIATE RELEASE) PO PRN (18:12)
[2023-05-24] MEDS ORDERED: TAMSULOSIN HCL 0.4 MG CAP PO SCH (21:00)
[2023-05-24] MEDS ORDERED: SENNA 8.6 MG TAB PO SCH (21:00)
[2023-05-24] MEDS ORDERED: MONTELUKAST SODIUM 10 MG TABLET PO SCH (21:00)
[2023-05-24] MEDS ORDERED: PANTOprazole 40 MG TAB PO SCH (21:00)
[2023-05-24] MEDS: DOCUSATE SODIUM 100 MG CAP PO SCH (21:13)
[2023-05-24] MEDS: BETAMETHASONE DIP AUG (DIPROLENE) 0.05% CR 15 GM TUBE EXT SCH (21:14)
[2023-05-24] MEDS: ASPIRIN 81 MG ECTAB PO SCH (21:15)
[2023-05-24] MEDS: guaiFENesin 600 MG TABCR PO SCH (21:16)
[2023-05-25] MEDS: SODIUM CHLORIDE 0.9% 1000ML 1,000 ML IV SCH (00:13)
[2023-05-25] MEDS: oxyCODONE HCL IR 5 MG TAB (IMMEDIATE RELEASE) PO PRN (00:48)
[2023-05-25] MEDS: ceFAZolin 2000MG 2,000 MG/15 ML SYR IV SCH (01:38)
[2023-05-25] MEDS: KETOROLAC TROMETHAMINE 15 MG/ML VIAL IV SCH ×2 (01:38→08:13)
[2023-05-25] MEDS: ACETAMINOPHEN 500 MG TAB PO SCH (05:28)
[2023-05-25] MEDS ORDERED: LEVOTHYROXINE SODIUM 175 MCG TABLET PO SCH (06:30)
--- NOTE | 2023-05-25 06:53 | Orthopedic Progress Note ---
Date of Service May 25, 2023 Assessment & Plan (1) Status post right knee replacement: Overall he is doing very well. He is not having much pain in the right knee. He will be seen by physical therapy today for ambulation and range of motion exercises. He is on aspirin for DVT prophylaxis. The nursing staff can change his dressing after physical therapy. He can be discharged home later today. He will follow-up with orthopedics in 2 weeks. Dionte Morales was seen and examined at bedside this morning. Overall is doing very well. He is not having much pain in the right knee. He has been up and ambulating to the bathroom. He has no complaints.. Review of Systems All systems reviewed & are unremarkable except as noted in HPI & below. Physical Exam On physical examination of the right knee, the dressing is clean and dry. His leg is out full extension. He has active dorsiflexion plantarflexion of the right ankle.. Results & Data Results & Data Laboratory Results . Diagnostic Findings Postoperative x-rays of the right knee show the prosthesis to be in anatomic alignment without any evidence of fracture, dislocation, or loosening. PG Care Time/CCT Total # of Minutes Spent Total Time Spent with Patient: Total time spent is greater than 50% in coordination of care (as documented) at patient's floor/unit and/or counseling patient: Coding Level of Care Code 43567 Post Operative Follow-Up Diagnoses Status post right knee replacement Z96.651
--- NOTE | 2023-05-25 06:54 | Discharge Summary ---
Date of Service May 25, 2023 Admission HPI (Per Admitting) Andrew is a pleasant 73-year-old male, who has been dealing with lifetime chronic right knee pain. He was not able to go into [place] because of his right knee pain. It has waxed and waned over the years. It has been really bad over the past year. He has trouble ambulating. He cannot go up and down hills. He cannot do activities that he enjoys. He has been seeing my partners and has had multiple cortisone injections and viscosupplementation. He is still struggling with the knee. X-rays and clinical examination been diagnostic for chronic worsening osteoarthritis of the right knee. After failing conservative treatment, he has elected proceed with a right total knee arthroplasty. Admission Exam (Per Admitting) On physical examination of right knee, he has a slight varus deformity. He has tenderness palpation of the distal medial femoral condyle and over the medial joint line.. Principal Diagnosis Same as "Discharge Diagnosis" noted below under Discharge Instructions. Discharge Exam On physical examination of the right knee, the dressing is clean and dry. His leg is out full extension. He has active dorsiflexion plantarflexion of the right ankle.. Discharge Data Procedures Performed Operation Date: 05/24/23 10:00 Actual Procedures p Right Total Knee Arthroplasty(Right) - Kvng Ramos DO Ordered Studies 05/24/23 05:00 US - OR guided needle placemen Routine Hospital Course (1) Status post right knee replacement: On May 24, 2023 Anrdew arrived at [facility] and underwent a right knee replaced without complication. He had a spinal anesthetic. Postoperatively he was started on aspirin for DVT prophylaxis and transferred to the general orthopedic floors. His hospital course was uneventful. On postop day #1, his vital signs were stable and his pain was well controlled. He was able participate well with physical therapy doing ambulation and range of motion exercises. He was then discharged home. He will follow-up with orthopedics in 2 weeks. PG Care Time/CCT Total # of Minutes Spent Total Time Spent with Patient: Total time spent is greater than 50% in coordination of care (as documented) at patient's floor/unit and/or counseling patient: Discharge Plan Discharge Items Patient Disposition: Home - Home Health Services Reason For Visit: Degenerative Joint Disease Right Knee Discharge Diagnosis: Right knee replacement Activity: Per Instructions section Non-emergency contact: Surgeon Call non-emergency contact if: your wound has increased redness and your wound has increased drainage Follow-up/Referrals: Christopher Jordan MD [Primary Care Provider] - Diet: Regular Addtl Attending Provider Instructions: Activity and Therapy Recommendations: * If you are using [facility] then therapy will be provided at your home until they feel you have accomplished all of your goals. * If you are using [facility] then Physical Therapy will be provided until they feel you are ready to start Outpatient Physical Therapy. * If you are not using home therapy then Outpatient Physical Therapy should start about 3-5 days from your day of surgery. Therapy will last about 6-10 weeks * It is important not to put a pillow under your knee when you are relaxing or sleeping. It is just as important to make sure you are getting your knee perfectly straight as it is to regain your knee bend. * You were shown a series of exercises in the hospital. Do these exercises three times each day including the exercises you were shown in physical therapy. * Get up and walk several times each day. For the first four weeks, try not to stand or walk for more than one hour at a time. If you do stand or walk for more than one hour, you will not hurt anything, but your leg will likely swell. * As you feel comfortable, you may change from the walker or crutches to a cane and then to independent walking. Medications: * Narcotic You will likely be sent home from the hospital with a prescription for the narcotic pain medication that worked best throughout your stay. * Aspirin Most patients will be required to take Aspirin 81mg twice a day for 6 weeks after surgery. This is obtained [id number] and a prescription is not necessary. * Other medications may be prescribed for specific circumstances. If you have any questions, please call the office at . * Resume previous home medications unless otherwise instructed TEDs/Elastic Stockings: The white elastic stockings help limit swelling and prevent blood clots from forming in your legs.~ The more you wear them, the more they work. Wear them for six weeks. Dressing Care: The dressing can be changed after physical therapy on postop day #1. Daily dry dressing changes for a few days, especially if the incision is still draining some. If the incision is not draining then you may leave the pasha open to air. If there is a little bit of drainage or if the pasha are getting stuck on your clothing then cover the incision with a dry dressing. The pasha will be removed at your 2 week follow-up appointment. Showering: You may shower 5 days from the day of surgery as long as the incision is no longer draining. You may shower with the pasha exposed. Let soapy water run over the pasha and pat them dry. Do not scrub or soak the incision. Things To Watch For: * Drainage from the incision site that occurs more than one week after your surgery. * Increased redness at the incision site. * Fever above 102 degrees Fahrenheit. * Unusual chest pain or shortness of breath. * Call [facility] at with any of the above problems Follow-Up Visit: Follow-up with Dr. Ramos's PA (Kvng Estrella) 2-3 weeks after your day of surgery. He will remove your pasha and answer any questions. If you have any additional questions or concerns, Dr Ramos is usually in the office at the same time and will be available An appointment was probably scheduled when you signed-up for surgery in the office. If you have any questions call Office Instructions: More detailed instructions as well as Frequently Asked Questions were provided in a folder by our office when you signed-up for surgery. Please review these instructions when you get home. If you have any further questions or concerns, please feel free to call the office at [phone] Pending Studies at Discharge: No Stand-Alone Forms: [facility], Sm[facility] Cessation Medications and DC Order Prescriptions: New oxycodone 5 mg Tablet 5 mg PO Q4H PRN (Reason: pain) Qty: 30 0RF Continued (DME) Wheeled Walker Misc See Rx Instructions .MEDSUPPLY Qty: 1 0RF Rx Instructions: As directed metformin 500 mg Tablet 500 mg PO BID atorvastatin 80 mg Tablet 80 mg PO QDD albuterol sulfate 2.5 mg /3 mL (0.083 %) Solution For Nebulization 2.5 mg INHALATION QID PRN (Reason: SOB) acitretin 10 mg Capsule 10 mg PO QAM cetirizine 10 mg Tablet 10 mg PO QAM lisinopril-hydrochlorothiazide 20-12.5 mg Tablet 1 tab PO QAM calcipotriene 0.005 % Cream 1 applic TOPICAL UD Rx Instructions: Wednesday and Wednesday at bedtime nitroglycerin 0.4 mg Tablet, Sublingual 0.4 mg sublingual UD PRN (Reason: Chest Pain) metoprolol succinate 25 mg Tablet Extended Release 24 Hr 25 mg PO QAM albuterol sulfate 90 mcg/actuation Hfa Aerosol Inhaler 1 puff INHALATION Q6H PRN (Reason: SOB) betamethasone dipropionate 0.05 % Ointment 1 applic TOPICAL UD Rx Instructions: Wednesday - Wednesday at bedtime calcium carbonate-vitamin D3 [Oyster Shell Calcium-Vit D3] 500 mg(1,250mg) - 200 unit Tablet 2 tab PO QAM fluocinolone acetonide oil 0.01 % Drops 5 drp OTIC (EAR) 2XWK omeprazole 20 mg Tablet,Delayed Release (Dr/Ec) 20 mg PO HS epinephrine 0.3 mg/0.3 mL Syringe 0.3 mg IM Q3H PRN (Reason: BEE STINGS) azelastine 0.15 % (205.5 mcg) [place],Non-Aerosol 2 spray INTRANASAL BID levothyroxine 175 mcg tablet 175 mcg PO QAM fluticasone furoate-vilanterol [Breo Ellipta] 200-25 mcg/dose Blister With Device 1 inh INHALATION QAM tamsulosin 0.4 mg Capsule 0.4 mg PO QPM montelukast [Singulair] 10 mg Tablet 10 mg PO PM Patient Comments: in the afternoon budesonide 0.5 mg/2 mL Suspension For Nebulization 0.5 mg irrigation QAM Patient Comments: per pt uses as a nasal irrigation in am Mucinex 1,200 mg Tablet Extended Release 12hr 1,200 mg PO BID Changed aspirin 81 mg Tablet,Delayed Release (Dr/Ec) 81 mg PO BID 42 Days Qty: 0 0RF Admission Data Admit Date/Time: 05/24/23 11:41 Attending Provider: Kvng Ramos Admit Provider: Kvng Ramos Primary Care Provider: Christopher Jordan
[2023-05-25] MEDS: INSULIN ASPART PER UNIT CHARGE SC SCH (08:07)
[2023-05-25] MEDS: guaiFENesin 600 MG TABCR PO SCH (08:21)
[2023-05-25] MEDS: ASPIRIN 81 MG ECTAB PO SCH (08:21)
[2023-05-25] MEDS: DOCUSATE SODIUM 100 MG CAP PO SCH (08:21)
[2023-05-25] MEDS: BETAMETHASONE DIP AUG (DIPROLENE) 0.05% CR 15 GM TUBE EXT SCH (08:22)
[2023-05-25] MEDS ORDERED: LISINOPRIL/HCTZ 20/12.5MG 1 TAB TAB PO SCH (09:00)
[2023-05-25] MEDS ORDERED: MULTIVITAMIN TAB PO SCH (09:00)
[2023-05-25] MEDS ORDERED: BUDESONIDE 0.5 MG/2 ML VIAL (PULMICORT) INH SCH (09:00)
[2023-05-25] MEDS ORDERED: METOPROLOL SUCC 25MG EXT REL TAB PO SCH (09:00)
[2023-05-25] MEDS ORDERED: FLUTICASONE/VILANTEROL 200/25MCG 14 PUFFS/INHALER INH SCH (09:00)
[2023-05-25] MEDS ORDERED: CETIRIZINE HCL 10 MG TABLET PO SCH (09:00)
== END 2023-05-25 10:30 | disposition home health service (06) ==
LOC: 3E 07:18 → ASU 07:18
DX: E66.01 Morbid (severe) obesity due to excess calories; G47.33 Obstructive sleep apnea (adult) (pediatric); Z88.5 Allergy status to narcotic agent; Z79.84 Long term (current) use of oral hypoglycemic drugs; M17.11 Unilateral primary osteoarthritis, right knee; E11.9 Type 2 diabetes mellitus without complications; Z79.899 Other long term (current) drug therapy; I25.2 Old myocardial infarction; Z68.34 Body mass index [BMI] 34.0-34.9, adult; I10 Essential (primary) hypertension; Z79.82 Long term (current) use of aspirin; Z91.030 Bee allergy status; I25.10 Atherosclerotic heart disease of native coronary artery without angina pectoris; Z87.891 Personal history of nicotine dependence; J45.909 Unspecified asthma, uncomplicated; Z86.16 Personal history of COVID-19

== ENCOUNTER 2023-06-01 19:27 | Inpatient (IN) ==
[2023-06-01] MEDS ORDERED: SODIUM CHLORIDE 0.9% 1000ML 1,000 ML IV SCH (19:45)
[2023-06-01 20:03] LABS: iSTAT Creatinine 1.2 mg/dl (0.6-1.3); iSTAT Hemoglobin 10.9 g/dl (14.0-18.0); iSTAT Ionized Calcium 1.05 mmol/l (1.12-1.32); iSTAT Potassium 3.7 mmol/L (3.3-5.0)
[2023-06-01 20:06] LABS: Basophils # (auto) 0.05 K/uL (0-0.2); Basophils % (auto) 0.6 %; Eosinophils # (auto) 0.22 K/uL (0-0.50); Eosinophils % (auto) 2.7 %; Hematocrit (blood only) 34.5 % (42.0-52.0); Hemoglobin 11.6 g/dl (14.0-18.0); Immature Granulocytes # (auto) 0.05 K/uL (0.01-0.20); Immature Granulocytes % (auto) 0.6 %; Lymphocytes # (auto) 0.77 K/uL (1.2-3.4); Lymphocytes % (auto) 9.4 %; Mean Corpuscular Hemoglobin 28.1 pg (25.0-34.0); Mean Corpuscular Hgb Conc 33.6 g/dL (32.0-36.0); Mean Corpuscular Volume 83.5 fL (80.0-100.0); Mean Platelet Volume 9.4 fL (9.4-12.4); Monocytes # (auto) 0.91 K/uL (0.11-0.59); Monocytes % (auto) 11.2 %; Neutrophils # (auto) 6.16 K/uL (1.40-6.50); Neutrophils % (auto) 75.5 %; Platelet Count 274 K/uL (130-400); RDW Coefficient of Variation 13.4 % (11.5-14.5); Red Blood Count 4.13 M/uL (4.70-6.10); White Blood Count 8.16 K/ul (4.8-10.8)
--- NOTE | 2023-06-01 20:23 | Emergency Department Note ---
History of Present Illness General Chief complaint: Illness Stated complaint: Weakness, Nausea, Fever Time Seen by Provider: 06/01/23 19:34 History of Present Illness Provider complaint: Fever Onset (ago): day(s) 1 Maximum Pain Intensity: 3 73-year-old male presents emergency department for fever. Patient reports that he had a knee replacement done on June [address] Ramos. He reports Tmax of 100.5 earlier today. He reports he has been having some abdominal pain. He reports nausea and vomiting. No hematemesis coffee-ground emesis or bilious vomiting. No melena or hematochezia. No chest pain or difficulty breathing. Home Medications Medication Instructions Recorded Confirmed Type acitretin 10 mg capsule 10 mg PO QAM 04/14/19 06/01/23 History albuterol sulfate 2.5 mg/3 mL 2.5 mg inhalation QID PRN SOB 04/14/19 06/01/23 History (0.083 %) solution for nebulization albuterol sulfate 90 mcg/actuation 1 puff inhalation Q6H PRN SOB 04/14/19 0 06/01/23 History aerosol inhaler atorvastatin 80 mg tablet 80 mg PO QDD 04/14/19 06/01/23 History azelastine 205.5 mcg (0.15 %) 2 spray intranasal BID 04/14/19 06/01/23 History nasal spray betamethasone dipropionate 0.05 % 1 applic topical UD 04/14/19 06/01/23 History topical ointment calcipotriene 0.005 % topical cream 1 applic topical UD 04/14/19 06/01/23 History calcium carbonate 500 mg-vitamin 2 tab PO QAM 04/14/19 06/01/23 History D3 5 mcg (200 unit) tablet (Oyster Shell Calcium-Vitamin D3) cetirizine 10 mg tablet 10 mg PO QAM 04/14/19 06/01/23 History epinephrine 0.3 mg/0.3 mL 0.3 mg IM Q3H PRN BEE STINGS 04/14/19 06/01/23 History injection syringe fluocinolone acetonide oil 0.01 % 5 drp otic (ear) 2XWK 04/14/19 06/01/23 History ear drops lisinopril 20 1 tab PO QAM 04/14/19 06/01/23 History mg-hydrochlorothiazide 12.5 mg tablet metformin 500 mg tablet 500 mg PO BID 04/14/19 06/01/23 History metoprolol succinate 25 mg 25 mg PO QAM 04/14/19 06/01/23 History tablet,extended release 24 hr nitroglycerin 0.4 mg sublingual 0.4 mg sublingual UD PRN Chest Pain 04/14/19 06/01/23 History tablet omeprazole 20 mg tablet,delayed 20 mg PO HS 04/14/19 06/01/23 History release levothyroxine 175 mcg tablet 175 mcg PO DAILYBB 03/21/21 06/01/23 History Wheeled Walker #1 ea 03/24/23 06/01/23 Rx budesonide 0.5 mg/2 mL suspension 0.5 mg irrigation QAM 04/16/23 06/01/23 History for nebulization fluticasone furoate 200 1 inh inhalation QAM 04/16/23 06/01/23 History mcg-vilanterol 25 mcg/dose inhalation powder (Breo Ellipta) guaifenesin 1,200 mg tablet, 1,200 mg PO BID 04/16/23 06/01/23 History extended release 12 hr (Mucinex) montelukast 10 mg tablet 10 mg PO PM 04/16/23 06/01/23 History (Singulair) tamsulosin 0.4 mg capsule 0.4 mg PO QPM 04/16/23 06/01/23 History aspirin 81 mg tablet,delayed 81 mg PO BID 42 days #0 tabs 05/25/23 06/01/23 Rx release oxycodone 5 mg tablet 5 mg PO Q4H PRN pain #30 tabs 05/25/23 06/01/23 Rx ondansetron HCl 4 mg tablet 4 mg PO Q6 PRN nausea #15 tabs 05/27/23 06/01/23 Rx Allergies Allergy/AdvReac Type Severity Reaction Status Date / Time bee venom protein (honey bee) Allergy Severe Lung field Verified 05/24/23 08:07 filled with fluid hornet venom Allergy Severe Anaphylaxis Verified 05/24/23 08:07 adhesive Allergy Mild Red rash Verified 05/24/23 08:07 morphine AdvReac Severe Fever, BP Verified 05/24/23 08:07 Past Med/Surg History Medical History Asthma CAD (coronary artery disease) 2016 > stent x1 Follows with Dr. 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, initiated ASA/statin [facility] Vascular monitoring, stable/asymptomatic Chronic sinusitis CKD (chronic kidney disease) Stage 3 DM type 2 (diabetes mellitus, type 2) NIDDM GERD (gastroesophageal reflux disease) Hard of hearing History of basal cell cancer History of COVID-19 x2 Most recent 08/2022- given paxlovid > resolved History of migraine headaches History of myocardial infarction 2016 History of thyroid cancer s/p thyroidectomy/radiation HTN (hypertension) Hyperlipidemia Osteoarthritis Psoriasis Ruptured lumbar disc Sleep apnea CPAP (compliant) Tinnitus Surgical History H/O nasal septoplasty + sinuplasty History of arthroscopy of left knee X 2 History of basal cell carcinoma (BCC) excision History of cardiac cath 2016 > stent x1 History of cataract surgery R/L History of colonoscopy History of esophagogastroduodenoscopy (EGD) History of prostate surgery History of removal of cyst Right index finger (+ bone spur) History of repair of anterior cruciate ligament of left knee History of surgery Removal of benign testicular growth History of thyroidectomy History of tonsillectomy History of umbilical hernia repair History of vasectomy Hx of arthroscopy of right knee x2 S/P orchiopexy Status post biopsy of thyroid gland Family History Father Family history of diabetes mellitus Other No family history of adverse response to anesthesia Social History Smoking Status: Never smoker Second Hand Exposure: No; Do You Dip or Chew Tobacco: No; Hx Alcohol Use: Yes Alcohol type: beer and hard liquor Hx Substance Use: No Preferred Language: Portuguese Communication Ability: Effective Group Exercise Instructor Required: No Beliefs That Will Affect Care: None Current Living Situation: Spouse Feels Safe at Home: Yes Assistive Devices: Walker Physical Exam Vital Signs Vital Signs - 24 hr 06/01/23 19:37 06/01/23 19:41 06/01/23 20:00 Temperature 37.3 C Temperature Source Oral Pulse Rate 75 79 81 Respiratory Rate 15 22 Blood Pressure 159/72 H 162/76 H Blood Pressure Mean 101 104 Pulse Oximetry 94 91 Oxygen Delivery Method Room Air Room Air Sepsis Recent Fever Within 48 Hours Yes Sepsis New/Unexplained Change in Mental Status N/A Sepsis Action Taken by Nursing No Action Required 06/01/23 20:30 06/01/23 21:18 06/01/23 21:30 Temperature Temperature Source Pulse Rate 77 76 78 Respiratory Rate 15 19 21 Blood Pressure 144/81 H 146/73 H 120/53 L Blood Pressure Mean 102 97 75 Pulse Oximetry 91 98 91 Oxygen Delivery Method Room Air Room Air Room Air Sepsis Recent Fever Within 48 Hours Sepsis New/Unexplained Change in Mental Status Sepsis Action Taken by Nursing 06/01/23 22:06 06/01/23 22:30 06/01/23 23:57 Temperature Temperature Source Pulse Rate 74 78 79 Respiratory Rate 16 18 Blood Pressure 145/72 H 151/73 H Blood Pressure Mean 96 99 Pulse Oximetry 94 92 Oxygen Delivery Method Room Air Room Air Sepsis Recent Fever Within 48 Hours Sepsis New/Unexplained Change in Mental Status Sepsis Action Taken by Nursing Physical Exam HENT: Exam performed. - Head: Normocephalic and atraumatic. - Right Ear: External ear normal. No mastoid erythema - Left Ear: External ear normal. No mastoid erythema EYES: Conjunctivae and EOM are normal. Right eye exhibits no discharge. Left eye exhibits no discharge. No scleral icterus. NECK: Normal range of motion.No rigidity. No tracheal deviation and normal range of motion present. CV: Tachycardic rate, regular rhythm, normal heart sounds and intact distal pulses. There is no peripheral edema. Palpable radial pulses bue. PULM/CHEST: Effort normal and breath sounds normal. No respiratory distress. No stridor. He has no wheezes. He has no rales. ABD: The abdomen is soft. There is no tenderness. There is no rebound, no guarding. MUSC/SKEL: Right lower extremity: Swelling in the right calf. Incision over the right knee is clean and dry with no surrounding erythema discharge or bleeding. NEURO: He is alert and oriented to person, place, and time. He has normal strength. No cranial nerve deficit or sensory deficit. Coordination and gait normal. GCS eye subscore is 4. GCS verbal subscore is 5. GCS motor subscore is 6. Cerebellar tests wnl. SKIN: Skin is warm and dry. He is not diaphoretic. PSYCH: He has a normal mood and affect. Behavior is normal. Judgment and thought content normal. Course Course 1933: The patient was evaluated in room B3. A complete history and physical exam was performed Administered Medications Ceftriaxone Sodium (Rocephin) 2,000 mg in 70 mls @ 140 mls/hr IV NOW STA Stop: 06/02/23 00:19 Last Admin: 06/02/23 00:03 Dose: 140 mls/hr Documented By: FRANCISCO Discontinued Medications Azithromycin (Azithromycin 250 Mg Tab) 500 mg PO NOW ONE Stop: 06/01/23 23:52 Last Admin: 06/02/23 00:03 Dose: 500 mg Documented By: FRANCISCO Sodium Chloride (Nss 1000ml) 1,000 mls @ 999 mls/hr IV .Q1H1M AWAIS Stop: 06/01/23 20:45 Last Infusion: 06/01/23 21:41 Dose: 0 mls/hr Documented By: Admin: 06/01/23 20:29 Dose: 999 mls/hr Documented By: FERMIN Ioversol (Ioversol 350 Mg 125ml Prefilled Syringe) 117 ml IV ONCE ONE Stop: 06/01/23 21:01 Last Admin: 06/01/23 21:00 Dose: 117 ml Documented By: JOE Medical Decision Making Laboratory Data Attestation: I reviewed the patient's lab results. 06/01/23 19:42 06/01/23 19:42 Lab Results 06/01/23 06/01/23 06/01/23 Range/Units 19:42 19:42 19:42 WBC 8.16 (4.8-10.8) K/ul RBC 4.13 L (4.70-6.10) M/uL Hgb 11.6 L (14.0-18.0) g/dl POC Hgb (14.0-18.0) g/dl Hct 34.5 L (42.0-52.0) % POC Hct (42-52) % MCV 83.5 (80.0-100.0) fL MCH 28.1 (25.0-34.0) pg MCHC 33.6 (32.0-36.0) g/dL RDW Std Deviation 41.0 (36.4-46.3) fL RDW Coeff of Harsha 13.4 (11.5-14.5) % Plt Count 274 (130-400) K/uL MPV 9.4 (9.4-12.4) fL Immature Gran % (Auto) 0.6 % Neut % (Auto) 75.5 % Lymph % (Auto) 9.4 % Phelps % (Auto) 11.2 % Eos % (Auto) 2.7 % Baso % (Auto) 0.6 % Neut # (Auto) 6.16 (1.40-6.50) K/uL Lymph # (Auto) 0.77 L (1.2-3.4) K/uL Phelps # (Auto) 0.91 H (0.11-0.59) K/uL Eos # (Auto) 0.22 (0-0.50) K/uL Baso # (Auto) 0.05 (0-0.2) K/uL Immature Gran # (Auto) 0.05 (0.01-0.20) K/uL PT 11.0 (9.0-12.0) Seconds INR 1.0 (0.9-1.1) APTT 26.1 (21.0-31.0) Seconds PTT Ratio 0.9 VBG pH (7.36-7.41) VBG pCO2 (38-50) mmHg VBG pO2 mmHg VBG HCO3 mmol/L VBG O2 Saturation % VBG Base Excess mEq/L POC Sodium (135-144) mmol/L Sodium 134 L (136-145) mmol/L POC Potassium (3.3-5.0) mmol/L Potassium 3.9 (3.5-5.1) mmol/L POC Chloride (101-112) mmol/L Chloride 98 (98-107) mmol/L Carbon Dioxide 27 (21-32) mmol/L POC Total CO2 (24-31) mmol/L Anion Gap 9 (3-11) POC Anion Gap (16-25) mmol/L POC BUN (7-18) mg/dl BUN 14 (6-23) mg/dl Creatinine 1.05 (0.6-1.4) mg/dl POC Creatinine (0.6-1.3) mg/dl Est Cr Clr Drug Dosing 74.3 ml/min Est GFR ( Amer) 80.1 ml/min Est GFR (Non-Af Amer) 69.1 ml/min BUN/Creatinine Ratio 13.3 (10-20) Glucose 132 H (70-99(Fasting)) mg/dl POC Glucose (other) (70-99) mg/dl Lactate (0.4-2.0) mmol/L Calcium 8.5 L (8.6-10.3) mg/dl POC Ioniz Calcium Morris (1.12-1.32) mmol/l Magnesium 1.7 (1.7-2.4) mg/dl Total Bilirubin 0.7 (0.2-1.0) mg/dl Direct Bilirubin 0.2 (0-0.2) mg/dl AST 15 (13-39) U/L ALT 14 (7-52) U/L Alkaline Phosphatase 62 (34-104) U/L Troponin I High Sens 5.5 (0-20) pg/ml Total Protein 6.7 (6.0-8.3) gm/dl Albumin 3.6 (3.4-5.0) gm/dl Procalcitonin (0-0.5) ng/ml Urine Color Urine Appearance (Clear) Urine pH (4.5-7.5) Ur Specific [place] (1.000-1.030) Urine Protein (Negative) Urine Glucose (UA) (Negative) Urine Ketones (Negative) Urine Blood (Negative) Urine Nitrite (Negative) Urine Bilirubin (Negative) Urine Urobilinogen (Negative) Ur Leukocyte Esterase (Negative) Urine WBC (Auto) (0-5) /hpf Urine RBC (Auto) (0-4) /hpf U Hyaline Cast (Auto) (0-5) /lpf U Epithel Cells (Auto) (0-5) /lpf Urine Bacteria (Auto) (Negative) SARS-CoV-2 (PCR) (Negative) Influenza Type A (PCR) (Neg) Influenza Type B (PCR) (Neg) RSV (RT-PCR) (Neg) Blood Type Antibody Screen 06/01/23 06/01/23 06/01/23 Range/Units 19:42 19:42 19:49 WBC (4.8-10.8) K/ul RBC (4.70-6.10) M/uL Hgb (14.0-18.0) g/dl POC Hgb 10.9 L (14.0-18.0) g/dl Hct (42.0-52.0) % POC Hct 32 L (42-52) % MCV (80.0-100.0) fL MCH (25.0-34.0) pg MCHC (32.0-36.0) g/dL RDW Std Deviation (36.4-46.3) fL RDW Coeff of Harsha (11.5-14.5) % Plt Count (130-400) K/uL MPV (9.4-12.4) fL Immature Gran % (Auto) % Neut % (Auto) % Lymph % (Auto) % Phelps % (Auto) % Eos % (Auto) % Baso % (Auto) % Neut # (Auto) (1.40-6.50) K/uL Lymph # (Auto) (1.2-3.4) K/uL Phelps # (Auto) (0.11-0.59) K/uL Eos # (Auto) (0-0.50) K/uL Baso # (Auto) (0-0.2) K/uL Immature Gran # (Auto) (0.01-0.20) K/uL PT (9.0-12.0) Seconds INR (0.9-1.1) APTT (21.0-31.0) Seconds PTT Ratio VBG pH (7.36-7.41) VBG pCO2 (38-50) mmHg VBG pO2 mmHg VBG HCO3 mmol/L VBG O2 Saturation % VBG Base Excess mEq/L POC Sodium 134 L (135-144) mmol/L Sodium (136-145) mmol/L POC Potassium 3.7 (3.3-5.0) mmol/L Potassium (3.5-5.1) mmol/L POC Chloride 97 L (101-112) mmol/L Chloride (98-107) mmol/L Carbon Dioxide (21-32) mmol/L POC Total CO2 25 (24-31) mmol/L Anion Gap (3-11) POC Anion Gap 17.0 (16-25) mmol/L POC BUN 12 (7-18) mg/dl BUN (6-23) mg/dl Creatinine (0.6-1.4) mg/dl POC Creatinine 1.2 (0.6-1.3) mg/dl Est Cr Clr Drug Dosing ml/min Est GFR ( Amer) ml/min Est GFR (Non-Af Amer) ml/min BUN/Creatinine Ratio (10-20) Glucose (70-99(Fasting)) mg/dl POC Glucose (other) 131 H (70-99) mg/dl Lactate 0.9 (0.4-2.0) mmol/L Calcium (8.6-10.3) mg/dl POC Ioniz Calcium Morris 1.05 L (1.12-1.32) mmol/l Magnesium (1.7-2.4) mg/dl Total Bilirubin (0.2-1.0) mg/dl Direct Bilirubin (0-0.2) mg/dl AST (13-39) U/L ALT (7-52) U/L Alkaline Phosphatase (34-104) U/L Troponin I High Sens (0-20) pg/ml Total Protein (6.0-8.3) gm/dl Albumin (3.4-5.0) gm/dl Procalcitonin < 0.05 (0-0.5) ng/ml Urine Color Urine Appearance (Clear) Urine pH (4.5-7.5) Ur Specific [place] (1.000-1.030) Urine Protein (Negative) Urine Glucose (UA) (Negative) Urine Ketones (Negative) Urine Blood (Negative) Urine Nitrite (Negative) Urine Bilirubin (Negative) Urine Urobilinogen (Negative) Ur Leukocyte Esterase (Negative) Urine WBC (Auto) (0-5) /hpf Urine RBC (Auto) (0-4) /hpf U Hyaline Cast (Auto) (0-5) /lpf U Epithel Cells (Auto) (0-5) /lpf Urine Bacteria (Auto) (Negative) SARS-CoV-2 (PCR) (Negative) Influenza Type A (PCR) (Neg) Influenza Type B (PCR) (Neg) RSV (RT-PCR) (Neg) Blood Type Antibody Screen 06/01/23 06/01/23 06/01/23 Range/Units 19:53 20:15 20:15 WBC (4.8-10.8) K/ul RBC (4.70-6.10) M/uL Hgb (14.0-18.0) g/dl POC Hgb (14.0-18.0) g/dl Hct (42.0-52.0) % POC Hct (42-52) % MCV (80.0-100.0) fL MCH (25.0-34.0) pg MCHC (32.0-36.0) g/dL RDW Std Deviation (36.4-46.3) fL RDW Coeff of Harsha (11.5-14.5) % Plt Count (130-400) K/uL MPV (9.4-12.4) fL Immature Gran % (Auto) % Neut % (Auto) % Lymph % (Auto) % Phelps % (Auto) % Eos % (Auto) % Baso % (Auto) % Neut # (Auto) (1.40-6.50) K/uL Lymph # (Auto) (1.2-3.4) K/uL Phelps # (Auto) (0.11-0.59) K/uL Eos # (Auto) (0-0.50) K/uL Baso # (Auto) (0-0.2) K/uL Immature Gran # (Auto) (0.01-0.20) K/uL PT (9.0-12.0) Seconds INR (0.9-1.1) APTT (21.0-31.0) Seconds PTT Ratio VBG pH 7.44 H (7.36-7.41) VBG pCO2 44 (38-50) mmHg VBG pO2 38 mmHg VBG HCO3 30 mmol/L VBG O2 Saturation 66.0 % VBG Base Excess 5.0 mEq/L POC Sodium (135-144) mmol/L Sodium (136-145) mmol/L POC Potassium (3.3-5.0) mmol/L Potassium (3.5-5.1) mmol/L POC Chloride (101-112) mmol/L Chloride (98-107) mmol/L Carbon Dioxide (21-32) mmol/L POC Total CO2 (24-31) mmol/L Anion Gap (3-11) POC Anion Gap (16-25) mmol/L POC BUN (7-18) mg/dl BUN (6-23) mg/dl Creatinine (0.6-1.4) mg/dl POC Creatinine (0.6-1.3) mg/dl Est Cr Clr Drug Dosing ml/min Est GFR ( Amer) ml/min Est GFR (Non-Af Amer) ml/min BUN/Creatinine Ratio (10-20) Glucose (70-99(Fasting)) mg/dl POC Glucose (other) (70-99) mg/dl Lactate (0.4-2.0) mmol/L Calcium (8.6-10.3) mg/dl POC Ioniz Calcium Morris (1.12-1.32) mmol/l Magnesium (1.7-2.4) mg/dl Total Bilirubin (0.2-1.0) mg/dl Direct Bilirubin (0-0.2) mg/dl AST (13-39) U/L ALT (7-52) U/L Alkaline Phosphatase (34-104) U/L Troponin I High Sens (0-20) pg/ml Total Protein (6.0-8.3) gm/dl Albumin (3.4-5.0) gm/dl Procalcitonin (0-0.5) ng/ml Urine Color Urine Appearance (Clear) Urine pH (4.5-7.5) Ur Specific [place] (1.000-1.030) Urine Protein (Negative) Urine Glucose (UA) (Negative) Urine Ketones (Negative) Urine Blood (Negative) Urine Nitrite (Negative) Urine Bilirubin (Negative) Urine Urobilinogen (Negative) Ur Leukocyte Esterase (Negative) Urine WBC (Auto) (0-5) /hpf Urine RBC (Auto) (0-4) /hpf U Hyaline Cast (Auto) (0-5) /lpf U Epithel Cells (Auto) (0-5) /lpf Urine Bacteria (Auto) (Negative) SARS-CoV-2 (PCR) NEGATIVE (Negative) Influenza Type A (PCR) Negative (Neg) Influenza Type B (PCR) Negative (Neg) RSV (RT-PCR) Negative (Neg) Blood Type O Positive Antibody Screen NEGATIVE 06/01/23 Range/Units 21:20 WBC (4.8-10.8) K/ul RBC (4.70-6.10) M/uL Hgb (14.0-18.0) g/dl POC Hgb (14.0-18.0) g/dl Hct (42.0-52.0) % POC Hct (42-52) % MCV (80.0-100.0) fL MCH (25.0-34.0) pg MCHC (32.0-36.0) g/dL RDW Std Deviation (36.4-46.3) fL RDW Coeff of Harsha (11.5-14.5) % Plt Count (130-400) K/uL MPV (9.4-12.4) fL Immature Gran % (Auto) % Neut % (Auto) % Lymph % (Auto) % Phelps % (Auto) % Eos % (Auto) % Baso % (Auto) % Neut # (Auto) (1.40-6.50) K/uL Lymph # (Auto) (1.2-3.4) K/uL [place] # (Auto) (0.11-0.59) K/uL Eos # (Auto) (0-0.50) K/uL Baso # (Auto) (0-0.2) K/uL Immature Gran # (Auto) (0.01-0.20) K/uL PT (9.0-12.0) Seconds INR (0.9-1.1) APTT (21.0-31.0) Seconds PTT Ratio VBG pH (7.36-7.41) VBG pCO2 (38-50) mmHg VBG pO2 mmHg VBG HCO3 mmol/L VBG O2 Saturation % VBG Base Excess mEq/L POC Sodium (135-144) mmol/L Sodium (136-145) mmol/L POC Potassium (3.3-5.0) mmol/L Potassium (3.5-5.1) mmol/L POC Chloride (101-112) mmol/L Chloride (98-107) mmol/L Carbon Dioxide (21-32) mmol/L POC Total CO2 (24-31) mmol/L Anion Gap (3-11) POC Anion Gap (16-25) mmol/L POC BUN (7-18) mg/dl BUN (6-23) mg/dl Creatinine (0.6-1.4) mg/dl POC Creatinine (0.6-1.3) mg/dl Est Cr Clr Drug Dosing ml/min Est GFR ( Amer) ml/min Est GFR (Non-Af Amer) ml/min BUN/Creatinine Ratio (10-20) Glucose (70-99(Fasting)) mg/dl POC Glucose (other) (70-99) mg/dl Lactate (0.4-2.0) mmol/L Calcium (8.6-10.3) mg/dl POC Ioniz Calcium Morris (1.12-1.32) mmol/l Magnesium (1.7-2.4) mg/dl Total Bilirubin (0.2-1.0) mg/dl Direct Bilirubin (0-0.2) mg/dl AST (13-39) U/L ALT (7-52) U/L Alkaline Phosphatase (34-104) U/L Troponin I High Sens (0-20) pg/ml Total Protein (6.0-8.3) gm/dl Albumin (3.4-5.0) gm/dl Procalcitonin (0-0.5) ng/ml Urine Color Yellow Urine Appearance Clear (Clear) Urine pH 6.0 (4.5-7.5) Ur Specific [place] 1.020 (1.000-1.030) Urine Protein Negative (Negative) Urine Glucose (UA) Negative (Negative) Urine Ketones Trace H (Negative) Urine Blood Negative (Negative) Urine Nitrite Negative (Negative) Urine Bilirubin Negative (Negative) Urine Urobilinogen Negative (Negative) Ur Leukocyte Esterase Trace H (Negative) Urine WBC (Auto) 1-5 (0-5) /hpf Urine RBC (Auto) 0-4 (0-4) /hpf U Hyaline Cast (Auto) 1-5 (0-5) /lpf U Epithel Cells (Auto) 5-10 H (0-5) /lpf Urine Bacteria (Auto) Negative (Negative) SARS-CoV-2 (PCR) (Negative) Influenza Type A (PCR) (Neg) Influenza Type B (PCR) (Neg) RSV (RT-PCR) (Neg) Blood Type Antibody Screen Imaging Data My Impression: Chest x-ray: Chest x-ray negative. Airway clear. No pneumothorax. No consolidation. No cardiomegaly or cephalization.. No free air under the diaphragm. No fractures of the skeletal structures. Right knee: Hardware in place. Radiologist's Impression: Abdomen/Pelvis CT 06/01/23 19:41 Exam(s): CT ABDOMEN + PELVIS With Contrast IV Amt: 117 ml optiray 350 EXAM: CT Abdomen and Pelvis With Intravenous Contrast CLINICAL HISTORY: Reason for exam: abd nv. TECHNIQUE: Axial computed tomography images of the abdomen and pelvis with intravenous contrast. CTDI is 27.98 mGy and DLP is 805.68 mGy-cm. Automated exposure control was utilized for the study. A dose lowering technique was utilized adhering to the principles of ALARA. CONTRAST: Patient received 117 ml optiray 350 of IV contrast COMPARISON: No relevant prior studies available. FINDINGS: Lung bases: Unremarkable. No mass. No consolidation. ABDOMEN: Liver: Fatty liver. Gallbladder and bile ducts: Unremarkable. No calcified stones. No ductal dilation. Pancreas: Unremarkable. No mass. No ductal dilation. Spleen: Unremarkable. No splenomegaly. Adrenals: Unremarkable. No mass. Kidneys and ureters: 7.8 cm right renal cortical cyst. No hydronephrosis. Stomach and bowel: There is mild sigmoid colonic diverticulosis. No obstruction. No mucosal thickening. PELVIS: Appendix: Normal appendix. Bladder: Unremarkable. No mass. Reproductive: Unremarkable as visualized. ABDOMEN and PELVIS: Intraperitoneal space: Unremarkable. No free air. No significant fluid collection. Bones/joints: No acute fracture. No dislocation. Soft tissues: Unremarkable. Vasculature: Unremarkable. No abdominal aortic aneurysm. Lymph nodes: Unremarkable. No enlarged lymph nodes. IMPRESSION: No acute abdominal process identified Electronically signed by: Christiano Harrison MD 06/01/23 22:03 PM Chest CTA 06/01/23 19:41 Exam(s): CTA CHEST IV Amt: 117 ml optiray 350 EXAM: CT Angiography Chest With Intravenous Contrast CLINICAL HISTORY: Reason for exam: ro Pe. TECHNIQUE: Axial computed tomographic angiography images of the chest with intravenous contrast. CTDI is 27.98 mGy and DLP is 805.69 mGy-cm. Automated exposure control was utilized for the study. A dose lowering technique was utilized adhering to the principles of ALARA. MIP reconstructed images were created and reviewed. COMPARISON: No relevant prior studies available. FINDINGS: Pulmonary arteries: Unremarkable. No pulmonary embolism. Aorta: Ascending aorta is ectatic, measuring up to 4.1 cm in diameter. Lungs: Calcified granulomas are seen in bilateral lower lobes and bilateral infrahilar region. No mass. Mosaic groundglass densities seen in bilateral lungs. Pleural space: Unremarkable. No significant effusion. No pneumothorax. Heart: Unremarkable. No cardiomegaly. No significant pericardial effusion. No evidence of RV dysfunction. Bones/joints: No acute fracture. No dislocation. Soft tissues: Unremarkable. Lymph nodes: Unremarkable. No enlarged lymph nodes. IMPRESSION: No acute pulmonary embolism or aortic dissection Groundglass densities in bilateral lungs which could be from small airway inflammation Electronically signed by: Christiano Harrison MD 06/01/23 21:55 PM Venous Doppler Study 06/01/23 19:41 ULTRASOUND RIGHT LOWER EXTREMITY VENOUS CLINICAL HISTORY: Right leg pain and swelling. Edema. COMPARISON STUDY: No priors. TECHNIQUE: Real-time, grayscale, and color Doppler sonography of the deep veins of the right lower extremity was performed from the inguinal crease to the calf. Compression and augmentation were utilized. FINDINGS: There is no sonographic evidence of deep venous thrombosis identified in the right lower extremity. The common femoral, superficial femoral, and popliteal veins are patent and normally compressible. The greater saphenous vein and the profunda femoris vein at the junction with the common femoral vein are clear. The visualized calf veins are patent. A complex popliteal cyst measures 5.7 x 1.2 x 3.5 cm. IMPRESSION: 1. There is no sonographic evidence of deep venous thrombosis identified in the right lower extremity. 2. Cordova's cyst. ACT 112: Negative or not required by law. Electronically signed by: Joseph Emanuel M.D. 06/01/2023 10:15 PM ECG Data Attestation: I personally reviewed and interpreted this ECG as follows: Indication: + abdominal pain Rate (beats per minute): 79 Rhythm: + normal sinus ECG Intervals/blocks: + Normal QRS, + Normal MI and + Normal QT-c ECG ST segments: + Normal ST segments MDM Narrative Cardiac monitoring: An order was placed for continuous cardiac monitoring. The monitor shows a rate of 80 with sinus rhythm interpreted by me Vital signs stable. Labs within normal limits. CT of the abdomen pelvis negative CT of the chest shows possible groundglass densities in the bilateral lungs which could be from lower airway inflammation. Ultrasound negative for DVT. Patient has a class III pneumonia severity index score. Discussed the option with the patient about outpatient antibiotics and follow-up versus inpatient admission and patient and family state they prefer to be inpatient admission. Patient be treated with Rocephin and azithromycin. [facility]. PSI/PORT Score: Pneumonia Severity Index for CAP from [employer] on 06/01/2023 All calculations should be rechecked by clinician prior to use RESULT SUMMARY: 73 points Risk Class III, 0.9-2.8% mortality. Outpatient or inpatient treatment, depending on clinical judgment. INPUTS: Age > 75 years Sex > 0 = Male long term resident > 0 = No Neoplastic disease > 0 = No Liver disease history > 0 = No CHF history > 0 = No Cerebrovascular disease history > 0 = No Renal disease history > 0 = No Altered mental status > 0 = No Respiratory rate >=0 breaths/min > 0 = No Systolic blood pressure <90 mmHg > 0 = No Temperature <35&deg;C (95&deg;F) or >39.9&deg;C (103.8&deg;F) > 0 = No Pulse >=25 beats/min > 0 = No pH <7.35 > 0 = No BUN >=0 mg/dL or >=1 mmol/L > 0 = No Sodium <130 mmol/L > 0 = No Glucose >=50 mg/dL or >=4 mmol/L > 0 = No Hematocrit <30% > 0 = No Partial pressure of oxygen <60 mmHg or <8 kPa > 0 = No Pleural effusion on x-ray > 0 = No Impression & Plan Pneumonia Discharge Plan Visit Data Chief Complaint: Illness Stated Complaint: Weakness, Nausea, Fever ED Provider: Derek Alberto Discharge Problem: Pneumonia Patient Disposition: Admitted As Inpatient Forms Stand Alone Forms: [facility] Prescriptions Prescriptions: No Action ondansetron HCl 4 mg tablet 4 mg PO Q6 PRN (Reason: nausea) Qty: 15 0RF (DME) Wheeled Walker Misc See Rx Instructions .MEDSUPPLY Qty: 1 0RF Rx Instructions: As directed metformin 500 mg Tablet 500 mg PO BID atorvastatin 80 mg Tablet 80 mg PO QDD albuterol sulfate 2.5 mg /3 mL (0.083 %) Solution For Nebulization 2.5 mg INHALATION QID PRN (Reason: SOB) acitretin 10 mg Capsule 10 mg PO QAM cetirizine 10 mg Tablet 10 mg PO QAM lisinopril-hydrochlorothiazide 20-12.5 mg Tablet 1 tab PO QAM calcipotriene 0.005 % Cream 1 applic TOPICAL UD Rx Instructions: Wednesday and Wednesday at bedtime nitroglycerin 0.4 mg Tablet, Sublingual 0.4 mg sublingual UD PRN (Reason: Chest Pain) metoprolol succinate 25 mg Tablet Extended Release 24 Hr 25 mg PO QAM albuterol sulfate 90 mcg/actuation Hfa Aerosol Inhaler 1 puff INHALATION Q6H PRN (Reason: SOB) betamethasone dipropionate 0.05 % Ointment 1 applic TOPICAL UD Rx Instructions: Wednesday - Wednesday at bedtime calcium carbonate-vitamin D3 [Oyster Shell Calcium-Vit D3] 500 mg(1,250mg) - 200 unit Tablet 2 tab PO QAM fluocinolone acetonide oil 0.01 % Drops 5 drp OTIC (EAR) 2XWK omeprazole 20 mg Tablet,Delayed Release (Dr/Ec) 20 mg PO HS epinephrine 0.3 mg/0.3 mL Syringe 0.3 mg IM Q3H PRN (Reason: BEE STINGS) azelastine 0.15 % (205.5 mcg) Dupo,Non-Aerosol 2 spray INTRANASAL BID levothyroxine 175 mcg tablet 175 mcg PO DAILYBB fluticasone furoate-vilanterol [Breo Ellipta] 200-25 mcg/dose Blister With Device 1 inh INHALATION QAM tamsulosin 0.4 mg Capsule 0.4 mg PO QPM montelukast [Singulair] 10 mg Tablet 10 mg PO PM Patient Comments: in the afternoon budesonide 0.5 mg/2 mL Suspension For Nebulization 0.5 mg irrigation QAM Patient Comments: per pt uses as a nasal irrigation in am Mucinex 1,200 mg Tablet Extended Release 12hr 1,200 mg PO BID oxycodone 5 mg Tablet 5 mg PO Q4H PRN (Reason: pain) Qty: 30 0RF aspirin 81 mg Tablet,Delayed Release (Dr/Ec) 81 mg PO BID 42 Days Qty: 0 0RF Referrals Referrals: Christopher Jordan MD [Primary Care Provider] -
[2023-06-01 20:26] LABS: Albumin Level 3.6 gm/dl (3.4-5.0); BUN Creatinine Ratio 13.3 (10-20); Bilirubin Direct 0.2 mg/dl (0-0.2); Bilirubin,Total 0.7 mg/dl (0.2-1.0); Calcium 8.5 mg/dl (8.6-10.3); Creatinine Clr Calc Pharmacy 74.3 ml/min; Est GFR (African American) 80.1 ml/min; Est GFR (Non-African American) 69.1 ml/min; Magnesium 1.7 mg/dl (1.7-2.4); Potassium 3.9 mmol/L (3.5-5.1); Total Protein 6.7 gm/dl (6.0-8.3)
[2023-06-01 20:30] LABS: Troponin I High Sensitivity 5.5 pg/ml (0-20)
[2023-06-01 20:30] LABS: HCO3 VBG 30 mmol/L; PCO2 VBG 44 mmHg (38-50); PO2 VBG 38 mmHg; pH VBG 7.44 (7.36-7.41)
[2023-06-01 20:35] LABS: Partial Thromboplastin Ratio 0.9; Partial Thromboplastin Time 26.1 Seconds (21.0-31.0)
[2023-06-01 20:40] LABS: Influenza A virus by PCR Negative (Neg); Influenza B virus by PCR Negative (Neg); RSV by PCR Negative (Neg); SARS CoV2 RNA(COVID-19) Ceph NEGATIVE (Negative)
[2023-06-01] MEDS ORDERED: IOVERSOL 350 MG 125mL Prefilled Syringe IV ONE (21:00)
[2023-06-01 21:47] LABS: Appearance Urine Clear (Clear); Bacteria Urine Automated Negative (Negative); Bilirubin Urine Negative (Negative); Blood Urine Negative (Negative); Color Urine Yellow; Glucose Urine UA Negative (Negative); Ketones Urine Trace (Negative); Leukocyte Esterase Urine Trace (Negative); Nitrite Urine Negative (Negative); Protein Urine Negative (Negative); RBC Urine Automated 0-4 /hpf (0-4); Urobilinogen Urine Negative (Negative)
--- NOTE | 2023-06-01 21:56 | CT Scan Report ---
Exam(s): CTA CHEST IV Amt: 117 ml optiray 350 EXAM: CT Angiography Chest With Intravenous Contrast CLINICAL HISTORY: Reason for exam: ro Pe. TECHNIQUE: Axial computed tomographic angiography images of the chest with intravenous contrast. CTDI is 27.98 mGy and DLP is 805.69 mGy-cm. Automated exposure control was utilized for the study. A dose lowering technique was utilized adhering to the principles of ALARA. MIP reconstructed images were created and reviewed. COMPARISON: No relevant prior studies available. FINDINGS: Pulmonary arteries: Unremarkable. No pulmonary embolism. Aorta: Ascending aorta is ectatic, measuring up to 4.1 cm in diameter. Lungs: Calcified granulomas are seen in bilateral lower lobes and bilateral infrahilar region. No mass. Mosaic groundglass densities seen in bilateral lungs. Pleural space: Unremarkable. No significant effusion. No pneumothorax. Heart: Unremarkable. No cardiomegaly. No significant pericardial effusion. No evidence of RV dysfunction. Bones/joints: No acute fracture. No dislocation. Soft tissues: Unremarkable. Lymph nodes: Unremarkable. No enlarged lymph nodes. IMPRESSION: No acute pulmonary embolism or aortic dissection Groundglass densities in bilateral lungs which could be from small airway inflammation Electronically signed by: Christiano Harrison MD 06/01/23 21:55 PM
--- NOTE | 2023-06-01 22:04 | CT Scan Report ---
Exam(s): CT ABDOMEN + PELVIS With Contrast IV Amt: 117 ml optiray 350 EXAM: CT Abdomen and Pelvis With Intravenous Contrast CLINICAL HISTORY: Reason for exam: abd nv. TECHNIQUE: Axial computed tomography images of the abdomen and pelvis with intravenous contrast. CTDI is 27.98 mGy and DLP is 805.68 mGy-cm. Automated exposure control was utilized for the study. A dose lowering technique was utilized adhering to the principles of ALARA. CONTRAST: Patient received 117 ml optiray 350 of IV contrast COMPARISON: No relevant prior studies available. FINDINGS: Lung bases: Unremarkable. No mass. No consolidation. ABDOMEN: Liver: Fatty liver. Gallbladder and bile ducts: Unremarkable. No calcified stones. No ductal dilation. Pancreas: Unremarkable. No mass. No ductal dilation. Spleen: Unremarkable. No splenomegaly. Adrenals: Unremarkable. No mass. Kidneys and ureters: 7.8 cm right renal cortical cyst. No hydronephrosis. Stomach and bowel: There is mild sigmoid colonic diverticulosis. No obstruction. No mucosal thickening. PELVIS: Appendix: Normal appendix. Bladder: Unremarkable. No mass. Reproductive: Unremarkable as visualized. ABDOMEN and PELVIS: Intraperitoneal space: Unremarkable. No free air. No significant fluid collection. Bones/joints: No acute fracture. No dislocation. Soft tissues: Unremarkable. Vasculature: Unremarkable. No abdominal aortic aneurysm. Lymph nodes: Unremarkable. No enlarged lymph nodes. IMPRESSION: No acute abdominal process identified Electronically signed by: Christiano Harrison MD 06/01/23 22:03 PM
--- NOTE | 2023-06-01 22:17 | Ultrasound Report ---
ULTRASOUND RIGHT LOWER EXTREMITY VENOUS CLINICAL HISTORY: Right leg pain and swelling. Edema. COMPARISON STUDY: No priors. TECHNIQUE: Real-time, grayscale, and color Doppler sonography of the deep veins of the right lower ex tremity was performed from the inguinal crease to the calf. Compression and augmentation were utilize d. FINDINGS: There is no sonographic evidence of deep venous thrombosis identified in the right lower ex tremity. The common femoral, superficial femoral, and popliteal veins are patent and normally romi sible. The greater saphenous vein and the profunda femoris vein at the junction with the common femor al vein are clear. The visualized calf veins are patent. A complex popliteal cyst measures 5.7 x 1.2 x 3.5 cm. IMPRESSION: 1. There is no sonographic evidence of deep venous thrombosis identified in the right lower extremity . 2. Cordova's cyst. ACT 112: Negative or not required by law. Electronically signed by: Joseph Emanuel M.D. 06/01/2023 10:15 PM
[2023-06-01] MEDS ORDERED: cefTRIAXone SODIUM 2,000 MG/70 ML BAG IV STA (23:50)
[2023-06-01] MEDS ORDERED: AZITHROMYCIN 250 MG TAB PO ONE (23:51)
--- NOTE | 2023-06-02 01:25 | History & Physical Report ---
Date of Service June 02, 2023 Assessment & Plan (1) Pneumonia: Plan: 73-year-old male with past med significant for type 2 diabetes, hyperlipidemia, chronic kidney disease stage III, postoperative hypothyroidism, obstructive sleep apnea, mild persistent asthma, chronic rhinitis, celiac artery dissection, CAD, hypertension, GERD, psoriasis vulgaris, history of nonmelanoma skin cancer presents with cough and fever and found to have bibasilar infiltrates Pneumonia CT scan showing bilateral bibasilar infiltrates Received Rocephin and azithromycin in the ER We will continue with Unasyn and azithromycin Monitor for response History of asthma mild persistent Continue home inhalers and nebs as needed Diabetes Hold metformin Insulin sliding scale Follow blood sugars and HbA1c levels Obstructive sleep apnea CPAP nightly history of CAD On aspirin beta-viv and statin Had dobutamine stress echo prior to the knee surgery and was okay Hyperlipidemia on statin Hypertension On metoprolol and lisinopril/hydrochlorothiazide We will monitor GERD On omeprazole Has abdominal pain CT scan was okay We will place on IV Pepcid Stool for Hemoccult as he complained some black dark stools BPH On Flomax CKD stage III Presented with creatinine of 1 We will follow the labs Hypocalcemia Mild On calcium and vitamin D supplements We will follow vitamin D levels Hypothyroidism Synthyroid Anemia Hemoglobin 11.6 Recently had knee surgery We will follow stool for Hemoccult DVT prophylaxis Lovenox Disposition med/telemetry Full code History of Present Illness Chief Complaint: Pneumonia Primary Care Provider: Christopher Jordan MD 73-year-old male with past med significant for type 2 diabetes, hyperlipidemia, chronic kidney disease stage III, postoperative hypothyroidism, obstructive sleep apnea, mild persistent asthma, chronic rhinitis, celiac artery dissection, CAD, hypertension, GERD, psoriasis vulgaris, history of nonmelanoma skin cancer presents with cough and fever and found to have bibasilar infiltrates. Patient had right knee total arthroplasty on May 24, 2023 and did fine and was discharged on May 25. Patient states he is feeling congested in his chest, feeling some mucus stuck in his throat but not able to cough it up. Poor appetite. Also some nausea and vomiting and abdominal pain. Denies any blood in the stools but says stools are dark. He is taking aspirin twice daily currently. Denies any chest pain. And today he was spiking temperatures at home 102 degrees when decided come to the hospital. Has some headache. No blurred visions or earache. He has chronic rhinitis. No sore throat. Normal bladder movements. Currently resting comfortably and hemodynamically stable Allergies Allergy/AdvReac Type Severity Reaction Status Date / Time bee venom protein (honey bee) Allergy Severe Lung field Verified 05/24/23 08:07 filled with fluid hornet venom Allergy Severe Anaphylaxis Verified 05/24/23 08:07 adhesive Allergy Mild Red rash Verified 05/24/23 08:07 morphine AdvReac Severe Fever, BP Verified 05/24/23 08:07 Home Medications Medication Instructions Recorded Confirmed Type acitretin 10 mg capsule 10 mg PO QAM 04/14/19 06/01/23 History albuterol sulfate 2.5 mg/3 mL 2.5 mg inhalation QID PRN SOB 04/14/19 06/01/23 History (0.083 %) solution for nebulization albuterol sulfate 90 mcg/actuation 1 puff inhalation Q6H PRN SOB 04/14/19 06/01/23 History aerosol inhaler atorvastatin 80 mg tablet 80 mg PO QDD 04/14/19 06/01/23 History azelastine 205.5 mcg (0.15 %) 2 spray intranasal BID 04/14/19 06/01/23 History nasal spray betamethasone dipropionate 0.05 % 1 applic topical UD 04/14/19 06/01/23 History topical ointment calcipotriene 0.005 % topical cream 1 applic topical UD 04/14/19 06/01/23 History calcium carbonate 500 mg-vitamin 2 tab PO QAM 04/14/19 06/01/23 History D3 5 mcg (200 unit) tablet (Oyster Shell Calcium-Vitamin D3) cetirizine 10 mg tablet 10 mg PO QAM 04/14/19 06/01/23 History epinephrine 0.3 mg/0.3 mL 0.3 mg IM Q3H PRN BEE STINGS 04/14/19 06/01/23 History injection syringe fluocinolone acetonide oil 0.01 % 5 drp otic (ear) 2XWK 04/14/19 06/01/23 History ear drops lisinopril 20 1 tab PO QAM 04/14/19 06/01/23 History mg-hydrochlorothiazide 12.5 mg tablet metformin 500 mg tablet 500 mg PO BID 04/14/19 06/01/23 History metoprolol succinate 25 mg 25 mg PO QAM 04/14/19 06/01/23 History tablet,extended release 24 hr nitroglycerin 0.4 mg sublingual 0.4 mg sublingual UD PRN Chest Pain 04/14/19 06/01/23 History tablet omeprazole 20 mg tablet,delayed 20 mg PO HS 04/14/19 06/01/23 History release levothyroxine 175 mcg tablet 175 mcg PO DAILYBB 03/21/21 06/01/23 History Wheeled Walker #1 ea 03/24/23 06/01/23 Rx budesonide 0.5 mg/2 mL suspension 0.5 mg irrigation QAM 04/16/23 06/01/23 History for nebulization fluticasone furoate 200 1 inh inhalation QAM 04/16/23 06/01/23 History mcg-vilanterol 25 mcg/dose inhalation powder (Breo Ellipta) guaifenesin 1,200 mg tablet, 1,200 mg PO BID 04/16/23 06/01/23 History extended release 12 hr (Mucinex) montelukast 10 mg tablet 10 mg PO PM 04/16/23 06/01/23 History (Singulair) tamsulosin 0.4 mg capsule 0.4 mg PO QPM 04/16/23 06/01/23 History aspirin 81 mg tablet,delayed 81 mg PO BID 42 days #0 tabs 05/25/23 06/01/23 Rx release oxycodone 5 mg tablet 5 mg PO Q4H PRN pain #30 tabs 05/25/23 06/01/23 Rx ondansetron HCl 4 mg tablet 4 mg PO Q6 PRN nausea #15 tabs 05/27/23 06/01/23 Rx Past Med/Surg History Medical History Asthma CAD (coronary artery disease) 2016 > stent x1 Follows with Dr. 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, initiated ASA/statin [facility] Vascular monitoring, stable/asymptomatic Chronic sinusitis CKD (chronic kidney disease) Stage 3 DM type 2 (diabetes mellitus, type 2) NIDDM GERD (gastroesophageal reflux disease) Hard of hearing History of basal cell cancer History of COVID-19 x2 Most recent 08/2022- given paxlovid > resolved History of migraine headaches History of myocardial infarction 2016 History of thyroid cancer s/p thyroidectomy/radiation HTN (hypertension) Hyperlipidemia Osteoarthritis Psoriasis Ruptured lumbar disc Sleep apnea CPAP (compliant) Tinnitus Surgical History H/O nasal septoplasty + sinuplasty History of arthroscopy of left knee X 2 History of basal cell carcinoma (BCC) excision History of cardiac cath 2016 > stent x1 History of cataract surgery R/L History of colonoscopy History of esophagogastroduodenoscopy (EGD) History of prostate surgery History of removal of cyst Right index finger (+ bone spur) History of repair of anterior cruciate ligament of left knee History of surgery Removal of benign testicular growth History of thyroidectomy History of tonsillectomy History of umbilical hernia repair History of vasectomy Hx of arthroscopy of right knee x2 S/P orchiopexy Status post biopsy of thyroid gland Family History Father Family history of diabetes mellitus Other No family history of adverse response to anesthesia Social History Smoking Status: Former smoker Smoking End Date: 1968; Second Hand Exposure: No; Do You Dip or Chew Tobacco: No; Hx Alcohol Use: Yes Alcohol type: beer and hard liquor Hx Substance Use: No Preferred Language: Greek Communication Ability: Effective Liberal Arts Teacher Required: No Beliefs That Will Affect Care: None Current Living Situation: Spouse Other Information That Helps Us Care for You: No Feels Safe at Home: Yes Safety Concerns: Feels Safe At This Time Assistive Devices: Cane, CPAP, Denture - Upper, Glasses, Hearing Aid - Bilateral, Hearing Aid - Left, Hearing Aid - Right and Nebulizer Review of Systems Review of Systems: All systems reviewed & are unremarkable except as noted in Subjective Physical Exam Physical Exam: General- Not in distress Head- atraumatic Eyes- PERRL. ENT- oropharynx clear Neck- supple, no JVD, Lungs- clear to auscultation and percussion no added sounds Heart- regular rate and rhythm; no murmur, no gallop. Abdomen- normal bowel sounds, soft, nontender, no distension Extremities- s/p right knee arthroplasty. Stale seen. No erythema or drainage seen Neuro- alert, oriented x 3; PERRL, no facial palsy; no dysarthria; obeys commands, moves extremities Skin- warm & dry Results & Data Results & Data Vital Signs (Past 12 Hours) Vital Signs Temp Pulse Pulse Resp BP BP Pulse Ox 06/02/23 00:30 81 18 133/81 92 06/01/23 23:57 79 06/01/23 22:30 78 18 151/73 H 92 06/01/23 22:06 74 16 145/72 H 94 06/01/23 21:30 78 21 120/53 L 91 06/01/23 21:18 76 19 146/73 H 98 06/01/23 20:30 77 15 144/81 H 91 06/01/23 20:00 81 22 162/76 H 91 06/01/23 19:41 79 06/01/23 19:37 37.3 C 75 15 159/72 H 94 O2 Del Method 06/02/23 00:30 Room Air 06/01/23 23:57 06/01/23 22:30 Room Air 06/01/23 22:06 Room Air 06/01/23 21:30 Room Air 06/01/23 21:18 Room Air 06/01/23 20:30 Room Air 06/01/23 20:00 Room Air 06/01/23 19:41 06/01/23 19:37 Room Air Diagnostic Findings Laboratory Results WBC 8.16 K/ul (4.8-10.8) 06/01/23 19:42 RBC 4.13 M/uL (4.70-6.10) L 06/01/23 19:42 Hgb 11.6 g/dl (14.0-18.0) L 06/01/23 19:42 POC Hgb 10.9 g/dl (14.0-18.0) L 06/01/23 19:49 Hct 34.5 % (42.0-52.0) L 06/01/23 19:42 POC Hct 32 % (42-52) L 06/01/23 19:49 MCV 83.5 fL (80.0-100.0) 06/01/23 19:42 MCH 28.1 pg (25.0-34.0) 06/01/23 19:42 MCHC 33.6 g/dL (32.0-36.0) 06/01/23 19:42 RDW Std Deviation 41.0 fL (36.4-46.3) 06/01/23 19: RDW Coeff of Harsha 13.4 % (11.5-14.5) 06/01/23 19:42 Plt Count 274 K/uL (130-400) 06/01/23 19:42 MPV 9.4 fL (9.4-12.4) 06/01/23 19:42 Immature Gran % (Auto) 0.6 % 06/01/23 19:42 Neut % (Auto) 75.5 % 06/01/23 19:42 Lymph % (Auto) 9.4 % 06/01/23 19:42 [place] % (Auto) 11.2 % 06/01/23 19:42 Eos % (Auto) 2.7 % 06/01/23:42 Baso % (Auto) 0.6 % 06/01/23:42 Neut # (Auto) 6.16 K/uL (1.40-6.50) 06/01/23 19:42 Lymph # (Auto) 0.77 K/uL (1.2-3.4) L 06/01/23 19:42 [place] # (Auto) 0.91 K/uL (0.11-0.59) H 06/01/23 19:42 Eos # (Auto) 0.22 K/uL (0-0.50) 06/01/23 19:42 Baso # (Auto) 0.05 K/uL (0-0.2) 06/01/23:42 Immature Gran # (Auto) 0.05 K/uL (0.01-0.20) 06/01/23 19:42 PT 11.0 Seconds (9.0-12.0) 06/01/23 19:42 INR 1.0 (0.9-1.1) 06/01/23:42 APTT 26.1 Seconds (21.0-31.0) 06/01/23 19:42 PTT Ratio 0.9 06/01/23 19:42 VBG pH 7.44 (7.36-7.41) H 06/01/23 20:15 VBG pCO2 44 mmHg (38-50) 06/01/23 20:15 VBG pO2 38 mmHg 06/01/23 20:15 VBG HCO3 30 mmol/L 06/01/23 20:15 VBG O2 Saturation 66.0 % 06/01/23 20:15 VBG Base Excess 5.0 mEq/L 06/01/23 20:15 POC Sodium 134 mmol/L (135-144) L 06/01/23 19:49 Sodium 134 mmol/L (136-145) L 06/01/23 19:42 POC Potassium 3.7 mmol/L (3.3-5.0) 06/01/23 19:49 Potassium 3.9 mmol/L (3.5-5.1) 06/01/23 19:42 POC Chloride 97 mmol/L (101-112) L 06/01/23 19:49 Chloride 98 mmol/L (98-107) 06/01/23 19:42 Carbon Dioxide 27 mmol/L (21-32) 06/01/23 19:42 POC Total CO2 25 mmol/L (24-31) 06/01/23 19:49 Anion Gap 9 (3-11) 06/01/23 19:42 POC Anion Gap 17.0 mmol/L (16-25) 06/01/23 19:49 POC BUN 12 mg/dl (7-18) 06/01/23 19:49 BUN 14 mg/dl (6-23) 06/01/23 19:42 Creatinine 1.05 mg/dl (0.6-1.4) 06/01/23 19:42 POC Creatinine 1.2 mg/dl (0.6-1.3) 06/01/23 19:49 Est Cr Clr Drug Dosing 74.3 ml/min 06/01/23 19:42 Est GFR ( Amer) 80.1 ml/min 06/01/23 19:42 Est GFR (Non-Af Amer) 69.1 ml/min 06/01/23 19:42 BUN/Creatinine Ratio 13.3 (10-20) 06/01/23 19:42 Glucose 132 mg/dl (70-99(Fasting)) H 06/01/23 19:42 POC Glucose (other) 131 mg/dl (70-99) H 06/01/23 19:49 Lactate 0.9 mmol/L (0.4-2.0) 06/01/23 19:42 Calcium 8.5 mg/dl (8.6-10.3) L 06/01/23 19:42 POC Ioniz Calcium Morris 1.05 mmol/l (1.12-1.32) L 06/01/23 19:49 Magnesium 1.7 mg/dl (1.7-2.4) 06/01/23 19:42 Total Bilirubin 0.7 mg/dl (0.2-1.0) 06/01/23 19:42 Direct Bilirubin 0.2 mg/dl (0-0.2) 06/01/23 19:42 AST 15 U/L (13-39) 06/01/23 19:42 ALT 14 U/L (7-52) 06/01/23 19:42 Alkaline Phosphatase 62 U/L (34-104) 06/01/23 19:42 Troponin I High Sens 5.5 pg/ml (0-20) 06/01/23 19:42 Total Protein 6.7 gm/dl (6.0-8.3) 06/01/23 19:42 Albumin 3.6 gm/dl (3.4-5.0) 06/01/23 19:42 Procalcitonin < 0.05 ng/ml (0-0.5) 06/01/23 19:42 Urine Color Yellow 06/01/23 21:20 Urine Appearance Clear (Clear) 06/01/23 21:20 Urine pH 6.0 (4.5-7.5) 06/01/23 21:20 Ur Specific [place] 1.020 (1.000-1.030) 06/01/23 21:20 Urine Protein Negative (Negative) 06/01/23 21:20 Urine Glucose (UA) Negative (Negative) 06/01/23 21:20 Urine Ketones Trace (Negative) H 06/01/23 21:20 Urine Blood Negative (Negative) 06/01/23 21:20 Urine Nitrite Negative (Negative) 06/01/23 21:20 Urine Bilirubin Negative (Negative) 06/01/23 21:20 Urine Urobilinogen Negative (Negative) 06/01/23 21:20 Ur Leukocyte Esterase Trace (Negative) H 06/01/23 21:20 Urine WBC (Auto) 1-5 /hpf (0-5) 08/08/23 21:20 Urine RBC (Auto) 0-4 /hpf (0-4) 06/01/23 21:20 U Hyaline Cast (Auto) 1-5 /lpf (0-5) 06/01/23 21:20 U Epithel Cells (Auto) 5-10 /lpf (0-5) H 06/01/23 21:20 Urine Bacteria (Auto) Negative (Negative) 06/01/23 21:20 SARS-CoV-2 (PCR) NEGATIVE (Negative) 06/01/23 19:53 Influenza Type A (PCR) Negative (Neg) 06/01/23 19:53 Influenza Type B (PCR) Negative (Neg) 06/01/23 19:53 RSV (RT-PCR) Negative (Neg) 06/01/23 19:53 Blood Type O Positive 06/01/23 20:15 Antibody Screen NEGATIVE 06/01/23 20:15 Impressions Abdomen/Pelvis CT 06/01/23 19:41 Exam(s): CT ABDOMEN + PELVIS With Contrast IV Amt: 117 ml optiray 350 EXAM: CT Abdomen and Pelvis With Intravenous Contrast CLINICAL HISTORY: Reason for exam: abd nv. TECHNIQUE: Axial computed tomography images of the abdomen and pelvis with intravenous contrast. CTDI is 27.98 mGy and DLP is 805.68 mGy-cm. Automated exposure control was utilized for the study. A dose lowering technique was utilized adhering to the principles of ALARA. CONTRAST: Patient received 117 ml optiray 350 of IV contrast COMPARISON: No relevant prior studies available. FINDINGS: Lung bases: Unremarkable. No mass. No consolidation. ABDOMEN: Liver: Fatty liver. Gallbladder and bile ducts: Unremarkable. No calcified stones. No ductal dilation. Pancreas: Unremarkable. No mass. No ductal dilation. Spleen: Unremarkable. No splenomegaly. Adrenals: Unremarkable. No mass. Kidneys and ureters: 7.8 cm right renal cortical cyst. No hydronephrosis. Stomach and bowel: There is mild sigmoid colonic diverticulosis. No obstruction. No mucosal thickening. PELVIS: Appendix: Normal appendix. Bladder: Unremarkable. No mass. Reproductive: Unremarkable as visualized. ABDOMEN and PELVIS: Intraperitoneal space: Unremarkable. No free air. No significant fluid collection. Bones/joints: No acute fracture. No dislocation. Soft tissues: Unremarkable. Vasculature: Unremarkable. No abdominal aortic aneurysm. Lymph nodes: Unremarkable. No enlarged lymph nodes. IMPRESSION: No acute abdominal process identified Electronically signed by: Christiano Harrison MD 06/01/23 22:03 PM Chest CTA 06/01/23 19:41 Exam(s): CTA CHEST IV Amt: 117 ml optiray 350 EXAM: CT Angiography Chest With Intravenous Contrast CLINICAL HISTORY: Reason for exam: ro Pe. TECHNIQUE: Axial computed tomographic angiography images of the chest with intravenous contrast. CTDI is 27.98 mGy and DLP is 805.69 mGy-cm. Automated exposure control was utilized for the study. A dose lowering technique was utilized adhering to the principles of ALARA. MIP reconstructed images were created and reviewed. COMPARISON: No relevant prior studies available. FINDINGS: Pulmonary arteries: Unremarkable. No pulmonary embolism. Aorta: Ascending aorta is ectatic, measuring up to 4.1 cm in diameter. Lungs: Calcified granulomas are seen in bilateral lower lobes and bilateral infrahilar region. No mass. Mosaic groundglass densities seen in bilateral lungs. Pleural space: Unremarkable. No significant effusion. No pneumothorax. Heart: Unremarkable. No cardiomegaly. No significant pericardial effusion. No evidence of RV dysfunction. Bones/joints: No acute fracture. No dislocation. Soft tissues: Unremarkable. Lymph nodes: Unremarkable. No enlarged lymph nodes. IMPRESSION: No acute pulmonary embolism or aortic dissection Groundglass densities in bilateral lungs which could be from small airway inflammation Electronically signed by: Christiano Harrison MD 06/01/23 21:55 PM Venous Doppler Study 06/01/23 19:41 ULTRASOUND RIGHT LOWER EXTREMITY VENOUS CLINICAL HISTORY: Right leg pain and swelling. Edema. COMPARISON STUDY: No priors. TECHNIQUE: Real-time, grayscale, and color Doppler sonography of the deep veins of the right lower extremity was performed from the inguinal crease to the calf. Compression and augmentation were utilized. FINDINGS: There is no sonographic evidence of deep venous thrombosis identified in the right lower extremity. The common femoral, superficial femoral, and popliteal veins are patent and normally compressible. The greater saphenous vein and the profunda femoris vein at the junction with the common femoral vein are clear. The visualized calf veins are patent. A complex popliteal cyst measures 5.7 x 1.2 x 3.5 cm. IMPRESSION: 1. There is no sonographic evidence of deep venous thrombosis identified in the right lower extremity. 2. Cordova's cyst. ACT 112: Negative or not required by law. Electronically signed by: Joseph Emanuel M.D. 06/01/2023 10:15 PM ECG Additional Comments: ECG normal sinus rhythm rate of 79. No acute ST changes seen Code Status & VTE Plan VTE Prophylaxis Plan VTE Prophylaxis will be ordered: Yes (1) Pneumonia Laterality: unspecified laterality Lung location: unspecified part of lung Pneumonia type: due to unspecified organism Qualified Code(s): J18.9 - Pneumonia, unspecified organism
[2023-06-02] MEDS ORDERED: DEXTROSE 50% 50 ML SYRINGE IV PRN (02:15)
[2023-06-02] MEDS ORDERED: ALBUTEROL HFA 8 GM INHALER INH PRN (02:15)
[2023-06-02] MEDS ORDERED: SODIUM CHLORIDE 0.9% 1000ML 1,000 ML IV SCH (02:15)
[2023-06-02] MEDS ORDERED: ALBUTEROL 0.083% NEBU SOLN 3 ML VIAL INH PRN (02:15)
[2023-06-02] MEDS ORDERED: NITROGLYCERIN SL 0.4 MG/TAB TAB SL PRN ×2 (02:15)
[2023-06-02] MEDS ORDERED: CARBOHYDRATES FOR HYPOGLYCEMIA PO PRN (02:15)
[2023-06-02] MEDS ORDERED: GLUCOSE 10 TAB/TUBE PO PRN (02:15)
[2023-06-02] MEDS ORDERED: GLUCOSE 40% GEL 15 GM TUBE PO PRN (02:15)
[2023-06-02] MEDS ORDERED: GLUCAGON FOR INJ 1 MG VIAL SQ PRN (02:15)
[2023-06-02] MEDS: oxyCODONE HCL IR 5 MG TAB (IMMEDIATE RELEASE) PO PRN ×3 (02:46→19:50)
[2023-06-02] MEDS: LEVOTHYROXINE SODIUM 175 MCG TABLET PO SCH (04:54)
[2023-06-02 06:59] LABS: Basophils # (auto) 0.06 K/uL (0-0.2); Basophils % (auto) 0.9 %; Eosinophils % (auto) 2.9 %; Hematocrit (blood only) 31.9 % (42.0-52.0); Hemoglobin 10.8 g/dl (14.0-18.0); Immature Granulocytes # (auto) 0.06 K/uL (0.01-0.20); Immature Granulocytes % (auto) 0.9 %; Lymphocytes # (auto) 1.07 K/uL (1.2-3.4); Lymphocytes % (auto) 15.4 %; Mean Corpuscular Hemoglobin 28.3 pg (25.0-34.0); Mean Corpuscular Hgb Conc 33.9 g/dL (32.0-36.0); Mean Corpuscular Volume 83.5 fL (80.0-100.0); Mean Platelet Volume 9.2 fL (9.4-12.4); Monocytes # (auto) 0.94 K/uL (0.11-0.59); Monocytes % (auto) 13.5 %; Neutrophils # (auto) 4.63 K/uL (1.40-6.50); Neutrophils % (auto) 66.4 %; Platelet Count 247 K/uL (130-400); RDW Coefficient of Variation 13.8 % (11.5-14.5); RDW Standard Deviation 41.5 fL (36.4-46.3); Red Blood Count 3.82 M/uL (4.70-6.10); White Blood Count 6.96 K/ul (4.8-10.8)
[2023-06-02 07:05] LABS: BUN Creatinine Ratio 11.7 (10-20); Calcium 8.1 mg/dl (8.6-10.3); Creatinine Clr Calc Pharmacy 70.3 ml/min; Est GFR (African American) 74.9 ml/min; Est GFR (Non-African American) 64.6 ml/min; Magnesium 1.8 mg/dl (1.7-2.4); Potassium 3.7 mmol/L (3.5-5.1)
[2023-06-02] MEDS: BUDESONIDE 0.5 MG/2 ML VIAL (PULMICORT) NEB SCH (07:11)
--- NOTE | 2023-06-02 07:54 | XRay Report ---
XR knee RT 1 or 2V routine CLINICAL HISTORY: post op pain TECHNIQUE: 2 views of the right knee were obtained. Comparison: Comparison is made to knee radiographs 05/24/2023 FINDINGS: Surgical pasha remain in place. Patient is status post total knee arthroplasty. No perihardware renato ency or hardware fracture is seen. No joint effusion is seen. Soft tissue swelling is seen. Previousl y noted subcutaneous emphysema has largely resolved. IMPRESSION: Expected postoperative appearance without acute abnormalities. ACT 112: Negative or not required by law. Electronically signed by: Torey Kaur M.D. 06/02/2023 7:53 AM
--- NOTE | 2023-06-02 07:55 | XRay Report ---
XR chest 1V portable CLINICAL HISTORY: Sepsis TECHNIQUE: Single frontal radiograph of the chest was obtained. Comparison: Comparison is made to chest radiograph 03/21/2021 FINDINGS: No lines and tubes are seen. The cardiomediastinal silhouette is normal. Lungs are underinflated but clear. No evidence of pleural effusion or pneumothorax. IMPRESSION: No acute chest disease. ACT 112: Negative or not required by law. Electronically signed by: Torey Kaur M.D. 06/02/2023 7:54 AM
[2023-06-02] MEDS: [UNRECOGNIZED DRUG - REMARK] SCH ×3 (08:15→23:42)
[2023-06-02 08:24] LABS: Estimated Average Glucose 131 mg/dl; Hemoglobin A1C 6.2 % (4.5-5.6)
[2023-06-02] MEDS: INSULIN ASPART PER UNIT CHARGE SC SCH ×4 (08:49→21:29)
[2023-06-02] MEDS: AMPICILLIN/SULBACTAM SOD 3,000 MG in 0.9 % SODIUM CHLORIDE 100 ML IV SCH ×3 (08:53→21:29)
[2023-06-02] MEDS: FAMOTIDINE 20 MG in SYRINGE 3 ML IV SCH ×2 (08:55→19:57)
[2023-06-02] MEDS: POLYETHYLENE (MIRALAX) 17 GM PACK PO PRN (08:56)
[2023-06-02] MEDS: ASPIRIN 81 MG ECTAB PO SCH ×2 (08:57→19:51)
[2023-06-02] MEDS: CETIRIZINE HCL 10 MG TABLET PO SCH (08:57)
[2023-06-02] MEDS: guaiFENesin 600 MG TABCR PO SCH ×2 (08:58→19:52)
[2023-06-02] MEDS: CALCIUM 600MG + VIT D 400 IU TAB PO SCH (08:58)
[2023-06-02] MEDS: METOPROLOL SUCC 25MG EXT REL TAB PO SCH (08:58)
[2023-06-02] MEDS: LISINOPRIL/HCTZ 20/12.5MG 1 TAB TAB PO SCH (08:58)
[2023-06-02] MEDS: ENOXAPARIN INJ 40 MG/0.4 ML SYR SQ SCH (08:59)
[2023-06-02] MEDS: FLUTICASONE/VILANTEROL 200/25MCG 14 PUFFS/INHALER INH SCH (09:00)
--- NOTE | 2023-06-02 10:02 | Orthopedic Consultation ---
Date of Service June 02, 2023 Assessment & Plan (1) Status post right knee replacement: He has been admitted by the Hospitalist service for treatment of pneumonia. He feels somewhat better since treatment initiated. His knee is doing well and looks good. I'll order some PT/OT, total knee protocol and he can weight bear as tolerated. It looks like he is getting aspirin and lovenox for dvt prophylaxis. Will discuss with Dr. Ramos. History of Present Illness Reason for Consultation: . Requesting Physician: . Attending Physician: Helen Holley MD . Andrew is a 73 year old patient, 10 days s/p right tka done by Dr. Ramos. His knee has been doing pretty well. Not having much pain at all, just describes some paresthesias around the knee. Denies any recent drainage from the knee. He has not been feeling well. Reports a fever at home, chest congestion, and nausea/vomiting. He came to the ER last night and was admitted by the Hospitalist service for treatment of pneumonia. He is getting IV antibiotics. Allergies Allergy/AdvReac Type Severity Reaction Status Date / Time bee venom protein (honey bee) Allergy Severe Lung field Verified 05/24/23 08:07 filled with fluid hornet venom Allergy Severe Anaphylaxis Verified 05/24/23 08:07 adhesive Allergy Mild Red rash Verified 05/24/23 08:07 morphine AdvReac Severe Fever, BP Verified 05/24/23 08:07 Home Medications Medication Instructions Recorded Confirmed Type acitretin 10 mg capsule 10 mg PO QAM 04/14/19 06/01/23 History albuterol sulfate 2.5 mg/3 mL 2.5 mg inhalation QID PRN SOB 04/14/19 06/01/23 History (0.083 %) solution for nebulization albuterol sulfate 90 mcg/actuation 1 puff inhalation Q6H PRN SOB 04/14/19 06/01/23 History aerosol inhaler atorvastatin 80 mg tablet 80 mg PO QDD 04/14/19 06/01/23 History azelastine 205.5 mcg (0.15 %) 2 spray intranasal BID 04/14/19 06/01/23 History nasal spray betamethasone dipropionate 0.05 % 1 applic topical UD 04/14/19 06/01/23 History topical ointment calcipotriene 0.005 % topical cream 1 applic topical UD 04/14/19 06/01/23 History calcium carbonate 500 mg-vitamin 2 tab PO QAM 04/14/19 06/01/23 History D3 5 mcg (200 unit) tablet (Oyster Shell Calcium-Vitamin D3) cetirizine 10 mg tablet 10 mg PO QAM 04/14/19 06/01/23 History epinephrine 0.3 mg/0.3 mL 0.3 mg IM Q3H PRN BEE STINGS 04/14/19 06/01/23 History injection syringe fluocinolone acetonide oil 0.01 % 5 drp otic (ear) 2XWK 04/14/19 06/01/23 History ear drops lisinopril 20 1 tab PO QAM 04/14/19 06/01/23 History mg-hydrochlorothiazide 12.5 mg tablet metformin 500 mg tablet 500 mg PO BID 04/14/19 06/01/23 History metoprolol succinate 25 mg 25 mg PO QAM 04/14/19 06/01/23 History tablet,extended release 24 hr nitroglycerin 0.4 mg sublingual 0.4 mg sublingual UD PRN Chest Pain 04/14/19 06/01/23 History tablet omeprazole 20 mg tablet,delayed 20 mg PO HS 04/14/19 06/01/23 History release levothyroxine 175 mcg tablet 175 mcg PO DAILYBB 03/21/21 06/01/23 History Wheeled Walker #1 ea 03/24/23 06/01/23 Rx budesonide 0.5 mg/2 mL suspension 0.5 mg irrigation QA 04/16/23 06/01/23 History for nebulization fluticasone furoate 200 1 inh inhalation QA 04/16/23 06/01/23 History mcg-vilanterol 25 mcg/dose inhalation powder (Breo Ellipta) guaifenesin 1,200 mg tablet, 1,200 mg PO BID 04/16/23 06/01/23 History extended release 12 hr (Mucinex) montelukast 10 mg tablet 10 mg PO PM 04/16/23 06/01/23 History (Singulair) tamsulosin 0.4 mg capsule 0.4 mg PO QPM 04/16/23 06/01/23 History aspirin 81 mg tablet,delayed 81 mg PO BID 42 days #0 tabs 05/25/23 06/01/23 Rx release oxycodone 5 mg tablet 5 mg PO Q4H PRN pain #30 tabs 05/25/23 06/01/23 Rx ondansetron HCl 4 mg tablet 4 mg PO Q6 PRN nausea #15 tabs 05/27/23 06/01/23 Rx amoxicillin 875 mg-potassium 1 tab PO BIDM #10 tabs 06/04/23 Rx clavulanate 125 mg tablet azithromycin 250 mg tablet 250 mg PO HS #3 tabs 06/04/23 Rx bisacodyl 10 mg rectal suppository 10 mg UT DAILY PRN constipation 06/04/23 Rx #12 ea Past Med/Surg History Medical History Asthma CAD (coronary artery disease) 2016 > stent x1 Follows with Dr. 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, initiated ASA/statin [facility] Vascular monitoring, stable/asymptomatic Chronic sinusitis CKD (chronic kidney disease) Stage 3 DM type 2 (diabetes mellitus, type 2) NIDDM GERD (gastroesophageal reflux disease) Hard of hearing History of basal cell cancer History of COVID-19 x2 Most recent 08/2022- given paxlovid > resolved History of migraine headaches History of myocardial infarction 2016 History of thyroid cancer s/p thyroidectomy/radiation HTN (hypertension) Hyperlipidemia Osteoarthritis Psoriasis Ruptured lumbar disc Sleep apnea CPAP (compliant) Tinnitus Surgical History H/O nasal septoplasty + sinuplasty History of arthroscopy of left knee X 2 History of basal cell carcinoma (BCC) excision History of cardiac cath 2016 > stent x1 History of cataract surgery R/L History of colonoscopy History of esophagogastroduodenoscopy (EGD) History of prostate surgery History of removal of cyst Right index finger (+ bone spur) History of repair of anterior cruciate ligament of left knee History of surgery Removal of benign testicular growth History of thyroidectomy History of tonsillectomy History of umbilical hernia repair History of vasectomy Hx of arthroscopy of right knee x2 S/P orchiopexy Status post biopsy of thyroid gland Family History Father Family history of diabetes mellitus Other No family history of adverse response to anesthesia Social History Smoking Status: Former smoker Second Hand Exposure: No; Do You Dip or Chew Tobacco: No; Hx Alcohol Use: Yes Alcohol type: beer and hard liquor Hx Substance Use: No Preferred Language: Nepali Communication Ability: Effective Book Author Required: No Beliefs That Will Affect Care: None Current Living Situation: Spouse Feels Safe at Home: Yes Assistive Devices: CPAP, Nebulizer and Walker Review of Systems All systems reviewed & are unremarkable except as noted in HPI & below. Physical Exam . alert and oriented. NAD Right knee: incision is well approximated. Spangler intact. No active drainage. Slight erythema around the distal pasha. Moderate knee swelling. Able to do a good straight leg raise. Motion is about 0-90 degrees. Results & Data Results & Data Laboratory Results . Diagnostic Findings .xrays reviewed of the right knee show a cemented total knee replacement in good positioning. PG Care Time/CCT Total # of Minutes Spent Total Time Spent with Patient: Total time spent is greater than 50% in coordination of care (as documented) at patient's floor/unit and/or counseling patient: Coding Level of Care Code None Diagnoses Status post right knee replacement Z96.651
[2023-06-02] MEDS: ACETAMINOPHEN 325 MG TAB PO PRN (11:23)
--- NOTE | 2023-06-02 14:13 | Electrocardiogram Report ---
Test Reason : Blood Pressure : / mmHG Vent. Rate : 079 BPM Atrial Rate : 079 BPM P-R Int : 164 ms QRS Dur : 084 ms QT Int : 396 ms P-R-T Axes : 035 061 054 degrees QTc Int : 454 ms Normal sinus rhythm Normal ECG When compared with ECG of 21-MAR-2021 08:46, No significant change was found Confirmed by Felix Reed ([id number]) on 06/02/2023 2:13:25 PM Referred By: REFERRED SELF Confirmed By:Deven Reed
--- NOTE | 2023-06-02 14:55 | Hospitalist Progress Note ---
Date of Service June 02, 2023 Assessment & Plan (1) Pneumonia: Plan: 73-year-old male with past med significant for type 2 diabetes, hyperlipidemia, chronic kidney disease stage III, postoperative hypothyroidism, obstructive sleep apnea, mild persistent asthma, chronic rhinitis, celiac artery dissection, CAD, hypertension, GERD, psoriasis vulgaris, history of nonmelanoma skin cancer presents with cough and fever and found to have bibasilar infiltrates Pneumonia Presented with nonproductive cough, shortness of breath and fever at home CT scan showing bilateral bibasilar infiltrates Received Rocephin and azithromycin in the ER We will continue with Unasyn and azithromycin Has been feeling better clinically Blood culture is pending Will continue current management Status post right TKA Pneumonia as not a complication of surgery Appreciate Ortho input recommendation Continue PT and OT History of asthma mild persistent Continue home inhalers and nebs as needed Doubt any exacerbation of asthma History of struct of sleep apnea Continue CPAP at nighttime He has been saturating normally on room Diabetes Hold metformin Insulin sliding scale Follow blood sugars and HbA1c levels-6.2 History of CAD On aspirin beta-viv and statin Had dobutamine stress echo prior to the knee surgery and was okay Denies any acute cardiac symptoms Hyperlipidemia on statin Hypertension On metoprolol and lisinopril/hydrochlorothiazide We will monitor GERD On omeprazole Has abdominal pain CT scan was okay We will place on IV Pepcid Stool for Hemoccult as he complained some black dark stools Pending stool test-hemoglobin remained stable BPH On Flomax CKD stage III Presented with creatinine of 1 We will follow the labs Hypocalcemia Mild On calcium and vitamin D supplements We will follow vitamin D levels-D level is low at 28.2 Will start cholecalciferol on top of calcium supplement Hypothyroidism Synthyroid Anemia Hemoglobin 11.6 Recently had knee surgery We will follow stool for Hemoccult DVT prophylaxis Lovenox Disposition med/telemetry Full code Admission and Anticipated Discharge Date Admission Date: June 02, 2023 Subjective 06/02/2023 The patient was seen and examined in medical telemetry unit Admitted with cough with inability to bring up phlegm, shortness of breath and fever for the last few days He has been feeling much better since admission Denies any chest pain or palpitation, no abdominal pain nausea and vomiting Review of Systems Review of Systems: All systems reviewed and are unremarkable except as noted below Respiratory: Cough with minimal shortness of breath at rest Physical Exam Physical Exam: Lying in bed with minimal distress due to breathing Constitutional: well developed, well nourished, + ill appearing and + obese Eyes: PERRL, conjunctivae normal, anicteric sclerae ENMT: external ear and nose normal, oropharynx normal Neck: trachea midline, no thyromegaly Respiratory: + respiratory distress (Minimal distress and cough) Auscultation: + diminished lung sounds and + crackles (Occasional crackles at the bases) Cardiovascular: Rate/Rhythm: regular rate and regular rhythm; not tachycardic Heart Sounds: normal S1 and normal S2; no murmur Extremities: + edema (Trace edema bilaterally) Gastrointestinal (Abdomen): Inspection/Auscultation: + abdomen distended and normal bowel sounds Percussion/Palpation: abdomen soft; abdomen nontender Musculoskeletal: Status post light knee surgery on 24 May does not have any acute arthritis Neurologic: Alert, awake and oriented x 3. No focal neurodeficit Psychiatric: A+Ox3, euthymic affect Lymphatic: no cervical or axillary lymphadenopathy Results & Data Results & Data Vital Signs (Past 12 Hours) Vital Signs Temp Pulse Pulse Resp BP Pulse Ox O2 Del Method 06/02/23 14:31 71 06/02/23 11:26 36.9 C 71 18 147/73 H 95 Room Air 06/02/23 07:00 71 06/02/23 09:15 Room Air 06/02/23 07:32 37.0 C 71 18 165/71 H 93 Room Air 06/02/23 07:22 87 20 94 Room Air 06/02/23 07:22 Room Air 06/02/23 06:57 37.2 C 82 18 172/67 H 94 Room Air 06/02/23 04:52 74 06/02/23 03:56 37.3 C 77 16 152/66 H 94 Room Air, CPAP Laboratory Results Short CBC 06/01/23 06/02/23 Range/Units 19:42 06:13 WBC 8.16 6.96 (4.8-10.8) K/ul Hgb 11.6 L 10.8 L (14.0-18.0) g/dl Hct 34.5 L 31.9 L (42.0-52.0) % Plt Count 274 247 (130-400) K/uL BMP 06/01/23 06/02/23 19:42 06:13 Sodium 134 L 137 Potassium 3.9 3.7 Chloride 98 99 Carbon Dioxide 27 32 BUN 14 13 Creatinine 1.05 1.11 Glucose 132 H 106 H Calcium 8.5 L 8.1 L Liver Function 06/01/23 Range/Units 19:42 Total Bilirubin 0.7 (0.2-1.0) mg/dl Direct Bilirubin 0.2 (0-0.2) mg/dl AST 15 (13-39) U/L ALT 14 (7-52) U/L Alkaline Phosphatase 62 (34-104) U/L Albumin 3.6 (3.4-5.0) gm/dl Urine 06/01/23 Range/Units 21:20 Urine Color Yellow Urine Appearance Clear (Clear) Urine pH 6.0 (4.5-7.5) Ur Specific [employer] 1.020 (1.000-1.030) Urine Protein Negative (Negative) Urine Glucose (UA) Negative (Negative) Medications Administered Current Inpatient Medications Acetaminophen (Acetaminophen 325 Mg Tab) 650 mg PO Q4H PRN PRN Reason: Pain or Fever Stop: 07/02/23 02:14 Last Admin: 06/02/23 11:23 Dose: 650 mg Albuterol (Albuterol Hfa 8 Gm Inhaler) 1 puffs INH Q6H PRN PRN Reason: Shortness Of Breath Stop: 07/02/23 02:14 Albuterol (Albuterol 0.083% Nebu Soln 3 Ml Vial) 2.5 mg INH QID PRN; Protocol PRN Reason: Shortness Of Breath Stop: 07/02/23 02:14 Aspirin (Aspirin 81 Mg Ectab) 81 mg PO BID [facility] Stop: 07/02/23 08:59 Last Admin: 06/02/23 08:57 Dose: 81 mg Atorvastatin Calcium (Atorvastatin 40 Mg Tab) 80 mg PO QDD [facility] Stop: 07/02/23 16:29 Azithromycin (Azithromycin 250 Mg Tab) 250 mg PO HS [facility] Stop: 06/06/23 20:59 Budesonide (Budesonide 0.5 Mg/2 Ml Vial (Pulmicort)) 0.5 mg NEB QDR [facility] Stop: 07/02/23 07:59 Last Admin: 06/02/23 07:11 Dose: 0.5 mg Calcium/Vitamin D (Calcium 600mg + Vit D 400 Iu Tab) 2 tab PO QAM [facility] Stop: 07/02/23 08:59 Last Admin: 06/02/23 08:58 Dose: 2 tab Cetirizine HCl (Cetirizine Hcl 10 Mg Tablet) 10 mg PO QAM [facility] Stop: 07/02/23 08:59 Last Admin: 06/02/23 08:57 Dose: 10 mg Dextrose (Dextrose 50% 50 Ml Syringe) 25 - 50 ml IV UD PRN; Protocol PRN Reason: Hypoglycemia Protocol Stop: 07/02/23 02:14 Enoxaparin Sodium (Enoxaparin Inj 40 Mg/0.4 Ml Syr) 40 mg SQ Q24H [facility] Stop: 07/02/23 08:59 Last Admin: 06/02/23 08:59 Dose: 40 mg Fluticasone/Vilanterol (Fluticasone/Vilanterol 200/25mcg 14 Puffs/Inhaler) 1 puffs INH QAM [facility] Stop: 07/02/23 08:59 Last Admin: 06/02/23 09:00 Dose: 1 puffs Glucagon (Glucagon For Inj 1 Mg Vial) 1 mg SQ UD PRN; Protocol PRN Reason: Hypoglycemia Protocol Stop: 07/02/23 02:14 Glucose (Glucose 10 Tab/Tube) 4 - 8 tab PO UD PRN; Protocol PRN Reason: Hypoglycemia Treatment Stop: 07/02/23 02:14 Glucose (Glucose 40% Gel 15 Gm Tube) 15 - 30 gm PO UD PRN; Protocol PRN Reason: Hypoglycemia Protocol Stop: 07/02/23 02:14 Guaifenesin (Guaifenesin 600 Mg Tabcr) 1,200 mg PO BID [facility] Stop: 07/02/23 08:59 Last Admin: 06/02/23 08:58 Dose: 1,200 mg Lisinopril/HCTZ (Lisinopril/Hctz 20/12.5mg 1 Tab Tab) 1 tab PO QAM [facility] Stop: 07/02/23 08:59 Last Admin: 06/02/23 08:58 Dose: 1 tab Sodium Chloride (Nss 1000ml) 1,000 mls @ 75 mls/hr IV .[id number] [facility] Stop: 06/02/23 15:34 Last Admin: 06/02/23 03:22 Dose: 75 mls/hr Ampicillin Sodium/Sulbactam Sodium 3,000 mg/ Sodium Chloride 108 mls @ 200 mls/hr IV Q6H [facility]; Protocol Stop: 06/09/23 08:59 Last Admin: 06/02/23 14:52 Dose: 200 mls/hr Famotidine 20 mg/ Syringe 5 mls @ 2.5 mls/min IV BID [facility] Stop: 07/02/23 08:59 Last Admin: 06/02/23 08:55 Dose: 2.5 mls/min Insulin Aspart (Insulin Aspart Per Unit Charge) 0 units SC ACHS [facility] Stop: 07/02/23 07:29 Last Admin: 06/02/23 12:29 Dose: Not Given Levothyroxine Sodium (Levothyroxine Sodium 175 Mcg Tablet) 175 mcg PO DAILYBB [facility] Stop: 07/02/23 06:29 Last Admin: 06/02/23 04:54 Dose: 175 mcg Metoprolol Succinate (Metoprolol Succ 25mg Ext Rel Tab) 25 mg PO QAM [facility] Stop: 07/02/23 08:59 Last Admin: 06/02/23 08:58 Dose: 25 mg Miscellaneous (Acitretin 10 Mg - Order Awaiting Action) 1 each N/A QS [facility] Stop: 07/02/23 07:59 Last Admin: 06/02/23 08:15 Dose: Not Given Miscellaneous (Azelastine 0.15 % - Order Awaiting Action) 1 each N/A QS [facility] Stop: 07/02/23 07:59 Last Admin: 06/02/23 08:15 Dose: Not Given Miscellaneous (Betamethasone Dipropionate 0.05 % Oin - Order Awaiting Action) 1 each N/A [facility] Stop: 07/02/23 07:59 Last Admin: 06/02/23 08:15 Dose: Not Given Miscellaneous (Calcipotriene 0.005 % Cream - Order Awaiting Action) 1 each N/A [facility] Stop: 07/02/23 07:59 Last Admin: 06/02/23 08:15 Dose: Not Given Miscellaneous (Carbohydrates For Hypoglycemia ) 15 - 30 gm PO UD PRN PRN Reason: Hypoglycemia Protocol Stop: 07/02/23 02:14 Montelukast Sodium (Montelukast Sodium 10 Mg Tablet) 10 mg PO PM [facility] Stop: 07/02/23 20:59 Nitroglycerin (Nitroglycerin Sl 0.4 Mg/Tab Tab) 0.4 mg SL Q5M PRN PRN Reason: Chest Pain Stop: 07/02/23 02:14 Oxycodone HCl (Oxycodone Hcl Ir 5 Mg Tab (Immediate Release)) 5 mg PO Q4H PRN PRN Reason: pain Stop: 06/16/23 02:14 Last Admin: 06/02/23 02:46 Dose: 5 mg Pantoprazole Sodium (Pantoprazole 40 Mg Tab) 40 mg PO HS [facility] Stop: 07/02/23 20:59 Polyethylene Glycol (Polyethylene (Miralax) 17 Gm Pack) 17 gm PO DAILY PRN PRN Reason: Constipation Stop: 07/02/23 02:14 Last Admin: 06/02/23 08:56 Dose: 17 gm Tamsulosin HCl (Tamsulosin Hcl 0.4 Mg Cap) 0.4 mg PO QPM [facility] Stop: 07/02/23 20:59 (1) Pneumonia Laterality: unspecified laterality Lung location: unspecified part of lung Pneumonia type: due to unspecified organism Qualified Code(s): J18.9 - Pneumonia, unspecified organism
[2023-06-02] MEDS: ATORVASTATIN 40 MG TAB PO SCH (15:41)
[2023-06-02] MEDS: CHOLECALCIFEROL 1,000 UNITS 25 MCG TAB PO SCH (16:09)
[2023-06-02] MEDS: AZITHROMYCIN 250 MG TAB PO SCH (19:52)
[2023-06-02] MEDS: PANTOprazole 40 MG TAB PO SCH (19:52)
[2023-06-02] MEDS: TAMSULOSIN HCL 0.4 MG CAP PO SCH (19:53)
[2023-06-02] MEDS: MONTELUKAST SODIUM 10 MG TABLET PO SCH (19:53)
[2023-06-03] MEDS: oxyCODONE HCL IR 5 MG TAB (IMMEDIATE RELEASE) PO PRN ×3 (02:14→12:09)
[2023-06-03] MEDS: AMPICILLIN/SULBACTAM SOD 3,000 MG in 0.9 % SODIUM CHLORIDE 100 ML IV SCH ×2 (02:15→08:52)
[2023-06-03] MEDS: LEVOTHYROXINE SODIUM 175 MCG TABLET PO SCH (06:11)
[2023-06-03] MEDS: BUDESONIDE 0.5 MG/2 ML VIAL (PULMICORT) NEB SCH (06:56)
[2023-06-03] MEDS: [UNRECOGNIZED DRUG - REMARK] SCH ×2 (07:14→13:19)
[2023-06-03 08:09] LABS: Basophils # (auto) 0.04 K/uL (0-0.2); Basophils % (auto) 0.6 %; Eosinophils # (auto) 0.23 K/uL (0-0.50); Eosinophils % (auto) 3.3 %; Hematocrit (blood only) 34.6 % (42.0-52.0); Hemoglobin 11.5 g/dl (14.0-18.0); Immature Granulocytes # (auto) 0.07 K/uL (0.01-0.20); Lymphocytes # (auto) 1.13 K/uL (1.2-3.4); Lymphocytes % (auto) 16.3 %; Mean Corpuscular Hemoglobin 28.1 pg (25.0-34.0); Mean Corpuscular Hgb Conc 33.2 g/dL (32.0-36.0); Mean Corpuscular Volume 84.6 fL (80.0-100.0); Mean Platelet Volume 9.1 fL (9.4-12.4); Monocytes # (auto) 0.91 K/uL (0.11-0.59); Monocytes % (auto) 13.1 %; Neutrophils # (auto) 4.55 K/uL (1.40-6.50); Neutrophils % (auto) 65.7 %; Platelet Count 267 K/uL (130-400); RDW Coefficient of Variation 13.7 % (11.5-14.5); RDW Standard Deviation 41.9 fL (36.4-46.3); Red Blood Count 4.09 M/uL (4.70-6.10); White Blood Count 6.93 K/ul (4.8-10.8)
[2023-06-03 08:30] LABS: BUN Creatinine Ratio 10.8 (10-20); Calcium 8.4 mg/dl (8.6-10.3); Creatinine Clr Calc Pharmacy 70.6 ml/min; Est GFR (African American) 74.9 ml/min; Est GFR (Non-African American) 64.6 ml/min; Potassium 3.9 mmol/L (3.5-5.1)
[2023-06-03] MEDS: INSULIN ASPART PER UNIT CHARGE SC SCH ×4 (08:50→20:58)
[2023-06-03] MEDS: FAMOTIDINE 20 MG in SYRINGE 3 ML IV SCH (08:50)
[2023-06-03] MEDS: ENOXAPARIN INJ 40 MG/0.4 ML SYR SQ SCH (08:54)
[2023-06-03] MEDS: CETIRIZINE HCL 10 MG TABLET PO SCH (08:56)
[2023-06-03] MEDS: LISINOPRIL/HCTZ 20/12.5MG 1 TAB TAB PO SCH (08:56)
[2023-06-03] MEDS: ASPIRIN 81 MG ECTAB PO SCH ×2 (08:56→19:42)
[2023-06-03] MEDS: FLUTICASONE/VILANTEROL 200/25MCG 14 PUFFS/INHALER INH SCH (08:56)
[2023-06-03] MEDS: METOPROLOL SUCC 25MG EXT REL TAB PO SCH (08:57)
[2023-06-03] MEDS: guaiFENesin 600 MG TABCR PO SCH ×2 (08:57→19:43)
[2023-06-03] MEDS: AZELASTINE HCL 0.1% NASAL 200 SPRAYS/27,400 MCG BTL SCH ×2 (08:57→19:44)
[2023-06-03] MEDS: CALCIUM 600MG + VIT D 400 IU TAB PO SCH (08:57)
[2023-06-03] MEDS: CHOLECALCIFEROL 1,000 UNITS 25 MCG TAB PO SCH (08:57)
--- NOTE | 2023-06-03 09:18 | Hospitalist Progress Note ---
Date of Service June 03, 2023 Assessment & Plan (1) Pneumonia: Plan: 73-year-old male with past med significant for type 2 diabetes, hyperlipidemia, chronic kidney disease stage III, postoperative hypothyroidism, obstructive sleep apnea, mild persistent asthma, chronic rhinitis, celiac artery dissection, CAD, hypertension, GERD, psoriasis vulgaris, history of nonmelanoma skin cancer presents with cough and fever and found to have bibasilar infiltrates Pneumonia Presented with nonproductive cough, shortness of breath and fever at home CT scan showing bilateral bibasilar infiltrates Received Rocephin and azithromycin in the ER Changed to Unasyn and azithromycin feeling better clinically Blood cultures are negative De-escalate to augmentin and azithro to complete course. Status post right TKA on 05/24 Pneumonia as not a complication of surgery Ortho saw him this admission. followup next week for staple removal. History of asthma mild persistent Continue home inhalers and nebs as needed chronic, stable History of DAVID Continue CPAP at nighttime Diabetes-Hold metformin inpatient glucose at goal. Insulin sliding scale Follow blood sugars and HbA1c levels-6.2 History of CAD chronic, stable. Cont On aspirin beta-viv and statin Had dobutamine stress echo prior to the knee surgery Currently Denies any acute cardiac symptoms Hypertension chronic, stable. On metoprolol and lisinopril/hydrochlorothiazide GERD-chronic, stable. PPI and pepcid prn heartburn BPH On Flomax CKD stage III Presented with creatinine of 1 We will follow the labs Hypocalcemia Mild On calcium and vitamin D supplements We will follow vitamin D levels-D level is low at 28.2 Will start cholecalciferol on top of calcium supplement Hypothyroidism Synthyroid Anemia Hemoglobin 11.6 Recently had knee surgery We will follow stool for Hemoccult Morbid obesity DVT prophylaxis Lovenox Full code Dispo-to home on Wednesday I spent a total [id number] coordinating, documenting, and providing care for this patient excluding time spent in the performance of separately billed services Radha Marie DO [facility] Hospitalist Admission and Anticipated Discharge Date Admission Date: June 02, 2023 Subjective 73 yo M presented with post operative chest discomfort, treated for pneumonia appears improved to about the same as when he came in denies any further nausea and is eating he denies any heavy feeling in his chest, denies SOB coughing, fevers or chills. at bedside and assists with the history. Review of Systems Review of Systems: All systems were reviewed and negative except as indicated on subjective above. Physical Exam Physical Exam: CONSTITUTIONAL: WNWD, vitals as above, generally well-appearing, NAD EYES: normal conjunctivae, no scleral icterus, ENT: external ear and nose normal, MMM NECK: trachea midline RESPIRATORY: clear to auscultation bilaterally, no crackles, rales or wheezes, normal respiratory effort CARDIOVASCULAR: regular rate and rhythm, S1 and 2 heard without murmurs, gallops or rubs, no JVD, no peripheral edema CHEST: inspection of chest was normal GASTROINTESTINAL: soft, nontender, no guarding MUSCULOSKELETAL: strength 5/5 throughout, head is normocephalic and atraumatic, SKIN: warm and dry, NEUROLOGIC: CN 2-12 grossly intact, no sensory deficit, normal cognition, normal speech, no tremor PSYCHIATRIC: alert cooperative and oriented to person, place and time. Euthymic mood, makes good eye contact, language grossly intact, recent and remote memory grossly intact. Results & Data Results & Data Vital Signs (Past 12 Hours) Vital Signs Temp Pulse Pulse Resp BP Pulse Ox O2 Del Method 06/03/23 07:19 Room Air 06/03/23 06:00 74 06/03/23 07:23 37.6 C H 75 18 155/64 H 96 Room Air 06/03/23 06:58 80 20 94 Room Air 06/03/23 03:11 37.8 C H 74 18 133/54 L 93 CPAP 06/02/23 23:39 37.9 C H 85 20 151/64 H 92 Room Air, CPAP 06/02/23 22:45 84 06/02/23 22:11 76 18 97 Room Air Laboratory Results Short CBC 06/03/23 Range/Units 07:09 WBC 6.93 (4.8-10.8) K/ul Hgb 11.5 L (14.0-18.0) g/dl Hct 34.6 L (42.0-52.0) % Plt Count 267 (130-400) K/uL BMP 06/03/23 07:09 Sodium 136 Potassium 3.9 Chloride 99 Carbon Dioxide 29 BUN 12 Creatinine 1.11 Glucose 119 H Calcium 8.4 L Medications Administered Current Inpatient Medications Acetaminophen (Acetaminophen 325 Mg Tab) 650 mg PO Q4H PRN PRN Reason: Pain or Fever Stop: 07/02/23 02:14 Last Admin: 06/02/23 11:23 Dose: 650 mg Albuterol (Albuterol Hfa 8 Gm Inhaler) 1 puffs INH Q6H PRN PRN Reason: Shortness Of Breath Stop: 07/02/23 02:14 Albuterol (Albuterol 0.083% Nebu Soln 3 Ml Vial) 2.5 mg INH QID PRN; Protocol PRN Reason: Shortness Of Breath Stop: 07/02/23 02:14 Last Admin: 06/02/23 22:07 Dose: 2.5 mg Aspirin (Aspirin 81 Mg Ectab) 81 mg PO BID [facility] Stop: 07/02/23 08:59 Last Admin: 06/03/23 08:56 Dose: 81 mg Atorvastatin Calcium (Atorvastatin 40 Mg Tab) 80 mg PO QDD [facility] Stop: 07/02/23 16:29 Last Admin: 06/02/23 15:41 Dose: 80 mg Azelastine HCl (Azelastine Hcl 0.1% Nasal 200 Sprays/27,400 Mcg Btl) 2 sprays NA BID [facility] Stop: 07/03/23 08:59 Last Admin: 06/03/23 08:57 Dose: 2 sprays Azithromycin (Azithromycin 250 Mg Tab) 250 mg PO HS [facility] Stop: 06/06/23 20:59 Last Admin: 06/02/23 19:52 Dose: 250 mg Budesonide (Budesonide 0.5 Mg/2 Ml Vial (Pulmicort)) 0.5 mg NEB QDR [facility] Stop: 07/02/23 07:59 Last Admin: 06/03/23 06:56 Dose: 0.5 mg Calcium/Vitamin D (Calcium 600mg + Vit D 400 Iu Tab) 2 tab PO QAM [facility] Stop: 07/02/23 08:59 Last Admin: 06/03/23 08:57 Dose: 2 tab Cetirizine HCl (Cetirizine Hcl 10 Mg Tablet) 10 mg PO QAM [facility] Stop: 07/02/23 08:59 Last Admin: 06/03/23 08:56 Dose: 10 mg Dextrose (Dextrose 50% 50 Ml Syringe) 25 - 50 ml IV UD PRN; Protocol PRN Reason: Hypoglycemia Protocol Stop: 07/02/23 02:14 Enoxaparin Sodium (Enoxaparin Inj 40 Mg/0.4 Ml Syr) 40 mg SQ Q24H [facility] Stop: 07/02/23 08:59 Last Admin: 06/03/23 08:54 Dose: 40 mg Fluticasone/Vilanterol (Fluticasone/Vilanterol 200/25mcg 14 Puffs/Inhaler) 1 puffs INH QAM [facility] Stop: 07/02/23 08:59 Last Admin: 06/03/23 08:56 Dose: 1 puffs Glucagon (Glucagon For Inj 1 Mg Vial) 1 mg SQ UD PRN; Protocol PRN Reason: Hypoglycemia Protocol Stop: 07/02/23 02:14 Glucose (Glucose 10 Tab/Tube) 4 - 8 tab PO UD PRN; Protocol PRN Reason: Hypoglycemia Treatment Stop: 07/02/23 02:14 Glucose (Glucose 40% Gel 15 Gm Tube) 15 - 30 gm PO UD PRN; Protocol PRN Reason: Hypoglycemia Protocol Stop: 07/02/23 02:14 Guaifenesin (Guaifenesin 600 Mg Tabcr) 1,200 mg PO BID [facility] Stop: 07/02/23 08:59 Last Admin: 06/03/23 08:57 Dose: 1,200 mg Lisinopril/HCTZ (Lisinopril/Hctz 20/12.5mg 1 Tab Tab) 1 tab PO QAM [facility] Stop: 07/02/23 08:59 Last Admin: 06/03/23 08:56 Dose: 1 tab Ampicillin Sodium/Sulbactam Sodium 3,000 mg/ Sodium Chloride 108 mls @ 200 mls/hr IV Q6H [facility]; Protocol Stop: 06/09/23 08:59 Last Admin: 06/03/23 08:52 Dose: 200 mls/hr Famotidine 20 mg/ Syringe 5 mls @ 2.5 mls/min IV BID [facility] Stop: 07/02/23 08:59 Last Admin: 06/03/23 08:50 Dose: 2.5 mls/min Insulin Aspart (Insulin Aspart Per Unit Charge) 0 units SC ACHS [facility] Stop: 07/02/23 07:29 Last Admin: 06/03/23 08:50 Dose: 3 units Levothyroxine Sodium (Levothyroxine Sodium 175 Mcg Tablet) 175 mcg PO DAILYBB [facility] Stop: 07/02/23 06:29 Last Admin: 06/03/23 06:11 Dose: 175 mcg Metoprolol Succinate (Metoprolol Succ 25mg Ext Rel Tab) 25 mg PO QAM [facility] Stop: 07/02/23 08:59 Last Admin: 06/03/23 08:57 Dose: 25 mg Miscellaneous (Acitretin 10 Mg - Order Awaiting Action) 1 each N/A QS [facility] Stop: 07/02/23 07:59 Last Admin: 06/03/23 07:14 Dose: Not Given Miscellaneous (Betamethasone Dipropionate 0.05 % Oin - Order Awaiting Action) 1 each N/A QS [facility] Stop: 07/02/23 07:59 Last Admin: 06/03/23 07:14 Dose: Not Given Miscellaneous (Calcipotriene 0.005 % Cream - Order Awaiting Action) 1 each N/A QS [facility] Stop: 07/02/23 07:59 Last Admin: 06/03/23 07:14 Dose: Not Given Miscellaneous (Carbohydrates For Hypoglycemia ) 15 - 30 gm PO UD PRN PRN Reason: Hypoglycemia Protocol Stop: 07/02/23 02:14 Montelukast Sodium (Montelukast Sodium 10 Mg Tablet) 10 mg PO PM [facility] Stop: 07/02/23 20:59 Last Admin: 06/02/23 19:53 Dose: 10 mg Nitroglycerin (Nitroglycerin Sl 0.4 Mg/Tab Tab) 0.4 mg SL Q5M PRN PRN Reason: Chest Pain Stop: 07/02/23 02:14 Oxycodone HCl (Oxycodone Hcl Ir 5 Mg Tab (Immediate Release)) 5 mg PO Q4H PRN PRN Reason: pain Stop: 06/16/23 02:14 Last Admin: 06/03/23 07:21 Dose: 5 mg Pantoprazole Sodium (Pantoprazole 40 Mg Tab) 40 mg PO HS [facility] Stop: 07/02/23 20:59 Last Admin: 06/02/23 19:52 Dose: 40 mg Polyethylene Glycol (Polyethylene (Miralax) 17 Gm Pack) 17 gm PO DAILY PRN PRN Reason: Constipation Stop: 07/02/23 02:14 Last Admin: 06/02/23 08:56 Dose: 17 gm Tamsulosin HCl (Tamsulosin Hcl 0.4 Mg Cap) 0.4 mg PO QPM [facility] Stop: 07/02/23 20:59 Last Admin: 06/02/23 19:53 Dose: 0.4 mg Vitamin D (Cholecalciferol 1,000 Units 25 Mcg Tab) [facility] Stop: 07/02/23 15:14 Last Admin: 06/03/23 08:57 Dose: 1,000 units (1) Pneumonia Laterality: unspecified laterality Lung location: unspecified part of lung Pneumonia type: due to unspecified organism Qualified Code(s): J18.9 - Pneumonia, unspecified organism
--- NOTE | 2023-06-03 17:04 | Orthopedic Progress Note ---
Date of Service June 03, 2023 Assessment & Plan (1) Status post right knee replacement: Overall he is doing well with his right knee replacement. He is currently receiving treatment for his pneumonia. He should be scheduled to see us next week for staple removal. He can be weightbearing as tolerated and continue physical therapy with his knee. He should follow-up with orthopedics next week as scheduled. If you have any further questions please contact me via [place] text or personally on my cell phone [phone] Dionte Morales was seen and examined at bedside this morning. Overall is doing well with the knee. He feels he is still making progress. He is currently receiving treatment for his lungs.. Review of Systems All systems reviewed & are unremarkable except as noted in HPI & below. Physical Exam On physical examination of the right knee, the pasha are exposed and open to air. I will see any signs of infection. His leg is out full extension. He is neurovascular intact.. Results & Data Results & Data Laboratory Results . Diagnostic Findings . PG Care Time/CCT Total # of Minutes Spent Total Time Spent with Patient: Total time spent is greater than 50% in coordination of care (as documented) at patient's floor/unit and/or counseling patient: Coding Level of Care Code 55819 Post Operative Follow-Up Diagnoses Status post right knee replacement Z96.651
[2023-06-03] MEDS: AMOXICILLIN/CLAVULANATE 875 MG TAB PO SCH (17:53)
[2023-06-03] MEDS: ATORVASTATIN 40 MG TAB PO SCH (17:53)
[2023-06-03] MEDS ORDERED: ZOLPIDEM TARTRATE 5 MG TAB PO PRN (18:14)
[2023-06-03] MEDS ORDERED: FAMOTIDINE 20 MG in SYRINGE 3 ML IV ONE (18:20)
[2023-06-03] MEDS: POLYETHYLENE (MIRALAX) 17 GM PACK PO PRN (19:38)
[2023-06-03] MEDS: AZITHROMYCIN 250 MG TAB PO SCH (19:42)
[2023-06-03] MEDS: MONTELUKAST SODIUM 10 MG TABLET PO SCH (19:43)
[2023-06-03] MEDS: TAMSULOSIN HCL 0.4 MG CAP PO SCH (19:43)
[2023-06-03] MEDS: PANTOprazole 40 MG TAB PO SCH (19:44)
[2023-06-03] MEDS: ACETAMINOPHEN 325 MG TAB PO PRN (21:06)
[2023-06-04] MEDS: ACETAMINOPHEN 325 MG TAB PO PRN ×2 (01:04→09:21)
[2023-06-04] MEDS ORDERED: DOCUSATE SODIUM/SENNA 50/8.6MG TAB PO SCH (04:00)
[2023-06-04] MEDS: LEVOTHYROXINE SODIUM 175 MCG TABLET PO SCH (06:15)
[2023-06-04] MEDS: BUDESONIDE 0.5 MG/2 ML VIAL (PULMICORT) NEB SCH (07:20)
[2023-06-04] MEDS: CETIRIZINE HCL 10 MG TABLET PO SCH (08:13)
[2023-06-04] MEDS: METOPROLOL SUCC 25MG EXT REL TAB PO SCH (08:13)
[2023-06-04] MEDS: CALCIUM 600MG + VIT D 400 IU TAB PO SCH (08:14)
[2023-06-04] MEDS: AZELASTINE HCL 0.1% NASAL 200 SPRAYS/27,400 MCG BTL SCH (08:14)
[2023-06-04] MEDS: guaiFENesin 600 MG TABCR PO SCH (08:15)
[2023-06-04] MEDS: ASPIRIN 81 MG ECTAB PO SCH (08:15)
[2023-06-04] MEDS: FLUTICASONE/VILANTEROL 200/25MCG 14 PUFFS/INHALER INH SCH (08:16)
[2023-06-04] MEDS: CHOLECALCIFEROL 1,000 UNITS 25 MCG TAB PO SCH (08:16)
[2023-06-04] MEDS: ENOXAPARIN INJ 40 MG/0.4 ML SYR SQ SCH (08:18)
[2023-06-04] MEDS: INSULIN ASPART PER UNIT CHARGE SC SCH ×2 (09:11→12:44)
[2023-06-04] MEDS: LISINOPRIL/HCTZ 20/12.5MG 1 TAB TAB PO SCH (09:12)
[2023-06-04] MEDS: AMOXICILLIN/CLAVULANATE 875 MG TAB PO SCH (09:12)
--- NOTE | 2023-06-07 08:40 | Discharge Summary ---
Discharge Summary Date of Service June 04, 2023 Admission HPI Per Admitting Provider 73-year-old male with past med significant for type 2 diabetes, hyperlipidemia, chronic kidney disease stage III, postoperative hypothyroidism, obstructive sleep apnea, mild persistent asthma, chronic rhinitis, celiac artery dissection, CAD, hypertension, GERD, psoriasis vulgaris, history of nonmelanoma skin cancer presents with cough and fever and found to have bibasilar infiltrates. Patient had right knee total arthroplasty on May 24, 2023 and did fine and was discharged on May 25. Patient states he is feeling congested in his chest, feeling some mucus stuck in his throat but not able to cough it up. Poor appetite. Also some nausea and vomiting and abdominal pain. Denies any blood in the stools but says stools are dark. He is taking aspirin twice daily currently. Denies any chest pain. And today he was spiking temperatures at home 102 degrees when decided come to the hospital. Has some headache. No blurred visions or earache. He has chronic rhinitis. No sore throat. Normal bladder movements. Currently resting comfortably and hemodynamically stable Principal Dx & Hospital Course #1 = Principal Diagnosis (1) Pneumonia: 73-year-old male with past med significant for type 2 diabetes, hyperlipidemia, chronic kidney disease stage III, postoperative hypothyroidism, obstructive sleep apnea, mild persistent asthma, chronic rhinitis, celiac artery dissection, CAD, hypertension, GERD, psoriasis vulgaris, history of nonmelanoma skin cancer presents with cough and fever and found to have bibasilar infiltrates Pneumonia Presented with nonproductive cough, shortness of breath and fever at home CT scan showing bilateral bibasilar infiltrates Received Rocephin and azithromycin in the ER Changed to Unasyn and azithromycin feeling better clinically Blood cultures are negative De-escalate to augmentin and azithro to complete course. Status post right TKA on 05/24 Pneumonia as not a complication of surgery Ortho saw him this admission. followup next week for staple removal. History of asthma mild persistent Continue home inhalers and nebs as needed chronic, stable History of DAVID Continue CPAP at nighttime Diabetes-Hold metformin inpatient glucose at goal. Insulin sliding scale Follow blood sugars and HbA1c levels-6.2 History of CAD chronic, stable. Cont On aspirin beta-viv and statin Had dobutamine stress echo prior to the knee surgery Currently Denies any acute cardiac symptoms Hypertension chronic, stable. On metoprolol and lisinopril/hydrochlorothiazide GERD-chronic, stable. PPI and pepcid prn heartburn BPH On Flomax CKD stage III Presented with creatinine of 1 We will follow the labs Hypocalcemia Mild On calcium and vitamin D supplements We will follow vitamin D levels-D level is low at 28.2 Will start cholecalciferol on top of calcium supplement Hypothyroidism Synthyroid Anemia Hemoglobin 11.6 Recently had knee surgery We will follow stool for Hemoccult Morbid obesity DVT prophylaxis Lovenox Full code Dispo-to home on Wednesday I spent a total [id number] coordinating, documenting, and providing care for this patient excluding time spent in the performance of separately billed services Radha Marie DO [facility] Hospitalist Updated Medication List Medication Instructions Recorded Confirmed Type acitretin 10 mg capsule 10 mg PO QAM 04/14/19 06/01/23 History albuterol sulfate 2.5 mg/3 mL 2.5 mg inhalation QID PRN SOB 04/14/19 06/01/23 History (0.083 %) solution for nebulization albuterol sulfate 90 mcg/actuation 1 puff inhalation Q6H PRN SOB 04/14/19 06/01/23 History aerosol inhaler atorvastatin 80 mg tablet 80 mg PO QDD 04/14/19 06/01/23 History azelastine 205.5 mcg (0.15 %) 2 spray intranasal BID 04/14/19 06/01/23 History nasal spray betamethasone dipropionate 0.05 % 1 applic topical UD 04/14/19 06/01/23 History topical ointment calcipotriene 0.005 % topical cream 1 applic topical UD 04/14/19 06/01/23 History calcium carbonate 500 mg-vitamin 2 tab PO QAM 04/14/19 06/01/23 History D3 5 mcg (200 unit) tablet (Oyster Shell Calcium-Vitamin D3) cetirizine 10 mg tablet 10 mg PO QAM 04/14/19 06/01/23 History epinephrine 0.3 mg/0.3 mL 0.3 mg IM Q3H PRN BEE STINGS 04/14/19 06/01/23 History injection syringe fluocinolone acetonide oil 0.01 % 5 drp otic (ear) 2XWK 04/14/19 06/01/23 History ear drops lisinopril 20 1 tab PO QAM 04/14/19 06/01/23 History mg-hydrochlorothiazide 12.5 mg tablet metformin 500 mg tablet 500 mg PO BID 04/14/19 06/01/23 History metoprolol succinate 25 mg 25 mg PO QAM 04/14/19 06/01/23 History tablet,extended release 24 hr nitroglycerin 0.4 mg sublingual 0.4 mg sublingual UD PRN Chest Pain 04/14/19 06/01/23 History tablet omeprazole 20 mg tablet,delayed 20 mg PO HS 04/14/19 06/01/23 History release levothyroxine 175 mcg tablet 175 mcg PO DAILYBB 03/21/21 06/01/23 History Wheeled Walker #1 ea 03/24/23 06/01/23 Rx budesonide 0.5 mg/2 mL suspension 0.5 mg irrigation QAM 04/16/23 06/01/23 History for nebulization fluticasone furoate 200 1 inh inhalation QAM 04/16/23 06/01/23 History mcg-vilanterol 25 mcg/dose inhalation powder (Breo Ellipta) guaifenesin 1,200 mg tablet, 1,200 mg PO BID 04/16/23 06/01/23 History extended release 12 hr (Mucinex) montelukast 10 mg tablet 10 mg PO PM 04/16/23 06/01/23 History (Singulair) tamsulosin 0.4 mg capsule 0.4 mg PO QPM 04/16/23 06/01/23 History aspirin 81 mg tablet,delayed 81 mg PO BID 42 days #0 tabs 05/25/23 06/01/23 Rx release oxycodone 5 mg tablet 5 mg PO Q4H PRN pain #30 tabs 05/25/23 06/01/23 Rx ondansetron HCl 4 mg tablet 4 mg PO Q6 PRN nausea #15 tabs 05/27/23 06/01/23 Rx amoxicillin 875 mg-potassium 1 tab PO BIDM #10 tabs 06/04/23 Rx clavulanate 125 mg tablet azithromycin 250 mg tablet 250 mg PO HS #3 tabs 06/04/23 Rx bisacodyl 10 mg rectal suppository 10 mg DC DAILY PRN constipation 06/04/23 Rx #12 ea Hospital Stay Data Consultations 06/01/23 23:51 ED Decision to Admit Stat 06/02/23 08:00 Consult Orthopedic Surgery Routine Diagnostic Imagining Performed 06/01/23 19:41 CT abd pelvis IV con only Stat CT angio chest PE protocol Stat US venous doppler LE RT Stat Pending Results Patient Have Any Pending Studies at Discharge: No Discharge Instructions Given to Patient (Per Discharging Provider) Please take all medications as instructed on discharge list below. It is recommended that you have a follow-up chest xray in 4-6 weeks to ensure complete resolution of your pneumonia. Use Miralax or the suppository provided as needed for constipation. Please follow-up with your primary care physician as scheduled in one week. Followup with orthopedics as instructed for post-operative evaluation. It was a pleasure taking care of you! Please call if you have any questions or problems. You can reach a [facility] hospitalist on duty at [facility] 24 hours a day by calling [phone]. Take care of yourself. Radha Marie, [facility]ist
== END 2023-06-04 17:23 | disposition home or self-care (01) | DRG 195 ==
LOC: ED 19:27 → 2N 06-02 01:08 → SUATTDRO 06-02 01:08 → 2N 06-02 01:48

== ENCOUNTER 2024-02-28 06:25 | Observation (INO) ==
--- NOTE | 2024-01-27 12:58 | PAT Medication Instructions ---
Medication Instructions Date of Service January 27, 2024 Home Medications Medication Instructions Recorded Wheeled Walker #1 ea 03/24/23 oxycodone 5 mg tablet 5 mg PO Q4H PRN pain #30 tabs 05/25/23 ondansetron HCl 4 mg tablet 4 mg PO Q6 PRN nausea #15 tabs 05/27/23 azithromycin 250 mg tablet 250 mg PO HS #3 tabs 06/04/23 bisacodyl 10 mg rectal suppository 10 mg IA DAILY PRN constipation 06/04/23 #12 ea amoxicillin 500 mg tablet 2,000 mg (4 x 500 mg) PO ONCE #4 08/03/23 tabs acitretin 10 mg capsule 10 mg PO QAM albuterol sulfate 2.5 mg/3 mL (0.083 %) solution for nebulization 2.5 mg inhalation QID PRN SOB albuterol sulfate 90 mcg/actuation aerosol inhaler 1 puff inhalation Q6H PRN SOB atorvastatin 80 mg tablet 80 mg PO QDD azelastine 205.5 mcg (0.15 %) nasal spray 2 spray intranasal BID betamethasone dipropionate 0.05 % topical ointment 1 applic topical UD calcipotriene 0.005 % topical cream 1 applic topical UD calcium carbonate 500 mg-vitamin D3 5 mcg (200 unit) tablet (Oyster Shell Calciu m-Vitamin D3) 2 tab PO QAM cetirizine 10 mg tablet 10 mg PO QAM epinephrine 0.3 mg/0.3 mL injection syringe 0.3 mg IM Q3H PRN BEE STINGS fluocinolone acetonide oil 0.01 % ear drops 5 drp otic (ear) 2XWK lisinopril 20 mg-hydrochlorothiazide 12.5 mg tablet 1 tab PO QAM metformin 500 mg tablet 500 mg PO BID metoprolol succinate 25 mg tablet,extended release 24 hr 25 mg PO QAM nitroglycerin 0.4 mg sublingual tablet 0.4 mg sublingual UD PRN Chest Pain omeprazole 20 mg tablet,delayed release 20 mg PO HS levothyroxine 175 mcg tablet 175 mcg PO DAILYBB budesonide 0.5 mg/2 mL suspension for nebulization 0.5 mg irrigation QAM fluticasone furoate 200 mcg-vilanterol 25 mcg/dose inhalation powder (Breo Ellipta) 1 inh inhalation QAM montelukast 10 mg tablet (Singulair) 10 mg PO PM tamsulosin 0.4 mg capsule 0.4 mg PO QPM oxycodone 5 mg tablet 5 mg PO Q4H PRN pain ondansetron HCl 4 mg tablet 4 mg PO Q6 PRN nausea azithromycin 250 mg tablet 250 mg PO HS bisacodyl 10 mg rectal suppository 10 mg IA DAILY PRN constipation amoxicillin 500 mg tablet 2,000 mg (4 x 500 mg) PO ONCE aspirin 81 mg tablet,delayed release 81 mg PO QAM guaifenesin 1,200 mg tablet, extended release 12 hr (Mucinex) 1,200 mg PO BID Continue as directed epinephrine 0.3 mg/0.3 mL injection syringe 0.3 mg IM Q3H PRN BEE STINGS fluocinolone acetonide oil 0.01 % ear drops 5 drp otic (ear) 2XWK nitroglycerin 0.4 mg sublingual tablet 0.4 mg sublingual UD PRN Chest Pain (if needed) amoxicillin 500 mg tablet 2,000 mg (4 x 500 mg) PO ONCE ASK your prescriber and surgeon acitretin 10 mg capsule 10 mg PO QAM STOP taking 24 hours before surgery betamethasone dipropionate 0.05 % topical ointment 1 applic topical UD calcipotriene 0.005 % topical cream 1 applic topical UD DO NOT take the morning of surgery calcium carbonate 500 mg-vitamin D3 5 mcg (200 unit) tablet (Oyster Shell Calcium-Vitamin D3) 2 tab PO QAM cetirizine 10 mg tablet 10 mg PO QAM lisinopril 20 mg-hydrochlorothiazide 12.5 mg tablet 1 tab PO QAM metformin 500 mg tablet 500 mg PO BID bisacodyl 10 mg rectal suppository 10 mg IA DAILY PRN constipation guaifenesin 1,200 mg tablet, extended release 12 hr (Mucinex) 1,200 mg PO BID Take morning of surgery With a small sip of water, OTHERWISE NOTHING TO EAT OR DRINK AFTER MIDNIGHT: albuterol sulfate 2.5 mg/3 mL (0.083 %) solution for nebulization 2.5 mg inhalation QID PRN SOB (if needed) albuterol sulfate 90 mcg/actuation aerosol inhaler 1 puff inhalation Q6H PRN SOB (use if needed; please bring with you to hospital day of surgery if possible) azelastine 205.5 mcg (0.15 %) nasal spray 2 spray intranasal BID metoprolol succinate 25 mg tablet,extended release 24 hr 25 mg PO QAM levothyroxine 175 mcg tablet 175 mcg PO DAILYBB budesonide 0.5 mg/2 mL suspension for nebulization 0.5 mg irrigation QAM fluticasone furoate 200 mcg-vilanterol 25 mcg/dose inhalation powder (Breo Ellipta) 1 inh inhalation QAM oxycodone 5 mg tablet 5 mg PO Q4H PRN pain (if needed) ondansetron HCl 4 mg tablet 4 mg PO Q6 PRN nausea (if needed) aspirin 81 mg tablet,delayed release 81 mg PO QAM (unless surgeon directed otherwise) Take evening before surgery albuterol sulfate 2.5 mg/3 mL (0.083 %) solution for nebulization 2.5 mg inhalation QID PRN SOB (if needed) albuterol sulfate 90 mcg/actuation aerosol inhaler 1 puff inhalation Q6H PRN SOB (if needed) atorvastatin 80 mg tablet 80 mg PO QDD azelastine 205.5 mcg (0.15 %) nasal spray 2 spray intranasal BID metformin 500 mg tablet 500 mg PO BID omeprazole 20 mg tablet,delayed release 20 mg PO HS montelukast 10 mg tablet (Singulair) 10 mg PO PM tamsulosin 0.4 mg capsule 0.4 mg PO QPM oxycodone 5 mg tablet 5 mg PO Q4H PRN pain (if needed) ondansetron HCl 4 mg tablet 4 mg PO Q6 PRN nausea (if needed) azithromycin 250 mg tablet 250 mg PO HS bisacodyl 10 mg rectal suppository 10 mg IA DAILY PRN constipation (if needed) guaifenesin 1,200 mg tablet, extended release 12 hr (Mucinex) 1,200 mg PO BID Other Notes If you have any questions please call us at [phone] or [phone] or [phone] or [phone]
--- NOTE | 2024-02-02 13:23 | Anesthesiology Consultation ---
Date of Service February 02, 2024 Assessment & Plan (1) Encounter for pre-operative examination: - check BSG am DOS. - cardiology office visit 12/03/23 [facility]: "...last seen in our office on 03/26/2023 by Holly Mcelroy p.a.-C. He had endorsed some mild shortness of breath with exertion but felt it was related to deconditioning and weight, as well as reports of intermittent left-sided chest discomfort described more as an ache...recommended for a dobutamine stress echocardiogram for further evaluation. This test was negative for inducible ischemia with no significant structural abnormalities and patient was cleared to undergo knee surgery. Patient presents today feeling well over all. He had recently started going to the gym, but developed cellulitis on his left lower leg. He completed a course of Doxycycline yesterday. BP at target. He will be seeing orthopedics in December to discuss possible left knee replacement...doing well from a cardiac perspective...follow up 6-8 months..." - Outpatient joint assessment: Patient is currently scheduled for inpatient pathway. If re-evaluated and patient/surgeon requests outpatient pathway, patient is not recommended candidate for outpatient joint program from anesthesia standpoint. Chart Review Chart Review: Acceptable Risk for Surgery and Patient seen in Pre Admission Testing Teaching & Discussion Pre-Anesthesia Teaching/Discussion Notes: Instructed NPO after midnight before surgery, except medications with 15 cc of water. Medication instructions provided according to the PAT guidelines. History Surgery Operation Date: 02/28/24 08:00 Proposed Procedures p Left Total Knee Arthroplasty - Kvng Ramos, Height/Weight Height: 5 ft 9 in Weight: 111.9 kg Allergies Allergy/AdvReac Type Severity Reaction Status Date / Time bee venom protein (honey bee) Allergy Severe Lung field Verified 01/21/24 12:56 filled with fluid hornet venom Allergy Severe Anaphylaxis Verified 01/21/24 12:56 adhesive Allergy Mild Red rash Verified 01/21/24 12:56 morphine AdvReac Severe Fever, BP Verified 01/21/24 12:56 Medications Home Medications Medication Instructions Recorded Confirmed Last Taken acitretin 10 mg capsule 10 mg PO QAM 04/14/19 01/21/24 05/23/23 08:00 albuterol sulfate 2.5 mg/3 mL 2.5 mg inhalation QID PRN SOB 0601/21/24 05/10/23 (0.083 %) solution for nebulization albuterol sulfate 90 mcg/actuation 1 puff inhalation Q6H PRN SOB 04/14/19 01/21/24 04/18/19 aerosol inhaler atorvastatin 80 mg tablet 80 mg PO QDD 04/14/19 01/21/24 05/23/23 17:00 azelastine 205.5 mcg (0.15 %) 2 spray intranasal BID 04/14/19 01/21/24 05/24/23 06:00 nasal spray betamethasone dipropionate 0.05 % 1 applic topical UD 04/14/19 01/21/24 05/21/23 21:00 topical ointment calcipotriene 0.005 % topical cream 1 applic topical UD 04/14/19 01/21/24 05/16/23 21:00 calcium carbonate 500 mg-vitamin 2 tab PO QAM 04/14/19 01/21/24 05/23/23 07:00 D3 5 mcg (200 unit) tablet (Oyster Shell Calcium-Vitamin D3) cetirizine 10 mg tablet 10 mg PO QAM 04/14/19 01/21/24 05/23/23 07:00 epinephrine 0.3 mg/0.3 mL 0.3 mg IM Q3H PRN BEE STINGS 04/14/19 01/21/24 Unknown injection syringe fluocinolone acetonide oil 0.01 % 5 drp otic (ear) 2XWK 04/14/19 01/21/24 05/10/23 ear drops lisinopril 20 1 tab PO QAM 04/14/19 01/21/24 05/23/23 07:00 mg-hydrochlorothiazide 12.5 mg tablet metformin 500 mg tablet 500 mg PO BID 04/14/19 01/21/24 05/21/23 17:00 metoprolol succinate 25 mg 25 mg PO QAM 04/14/19 01/21/24 05/24/23 06:00 tablet,extended release 24 hr nitroglycerin 0.4 mg sublingual 0.4 mg sublingual UD PRN Chest Pain 04/14/1903/21/21 tablet 1 tablet omeprazole 20 mg tablet,delayed 20 mg PO HS 04/14/19 01/21/24 05/23/23 22:00 release levothyroxine 175 mcg tablet 175 mcg PO DAILYBB 03/21/21 01/21/24 05/24/23 01:00 Wheeled Walker #1 ea 03/24/23 06/01/23 Unknown budesonide 0.5 mg/2 mL suspension 0.5 mg irrigation QAM 04/16/23 01/21/24 05/24/23 06:00 for nebulization fluticasone furoate 200 1 inh inhalation QA 04/16/23 01/21/24 05/24/23 06:00 mcg-vilanterol 25 mcg/dose inhalation powder (Breo Ellipta) montelukast 10 mg tablet 10 mg PO PM 04/16/23 01/21/24 05/23/23 17:00 (Singulair) tamsulosin 0.4 mg capsule 0.4 mg PO QPM 04/16/23 01/21/24 05/23/23 21:00 oxycodone 5 mg tablet 5 mg PO Q4H PRN pain #30 tabs 05/25/23 01/21/24 Unknown ondansetron HCl 4 mg tablet 4 mg PO Q6 PRN nausea #15 tabs 05/27/23 01/21/24 Unknown azithromycin 250 mg tablet 250 mg PO HS #3 tabs 06/04/23 01/21/24 Unknown bisacodyl 10 mg rectal suppository 10 mg FL DAILY PRN constipation 06/04/23 01/21/24 Unknown #12 ea amoxicillin 500 mg tablet 2,000 mg (4 x 500 mg) PO ONCE #4 08/03/23 01/21/24 Unknown tabs aspirin 81 mg tablet,delayed 81 mg PO QAM 01/21/24 01/21/24 Unknown release guaifenesin 1,200 mg tablet, 1,200 mg PO BID 01/21/24 01/21/24 Unknown extended release 12 hr (Mucinex) Past Medical History Medical History (Updated 02/02/24 @ 13:34 by Miriam Hightower PA-C) Asthma rare res inh use; last albuterol use after extensive hike 12/2023 CAD (coronary artery disease) 2016 > stent x1 Follows with Dr. 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, initiated ASA/statin [facility] Vascular monitoring, stable/asymptomatic Cellulitis December 2023 > LLE saw [facility] dermatology for this, was on antibiotic, now resolved Chronic sinusitis CKD (chronic kidney disease) Stage 3 DM type 2 (diabetes mellitus, type 2) NIDDM GERD (gastroesophageal reflux disease) controlled, stable per pt Hard of hearing History of basal cell cancer multiple, most recent: left nostril s/p excision History of COVID-19 x2 Most recent 08/2022- given paxlovid > resolved History of migraine headaches History of myocardial infarction 2016 History of thyroid cancer s/p thyroidectomy/radiation HTN (hypertension) controlled, stable per pt Hyperlipidemia Pneumonia May 2023 > hospitalized at [place], resolved Psoriasis Ruptured lumbar disc Sleep apnea CPAP (compliant) Tinnitus Vocal cord paralysis, unilateral partial per pt, follows with [facility] Patient denies h/o stroke, seizures, blood clots/DVTs or blood transfusions. Exercise / Class Metabolic Activity II 4-5 Yardwork/Stairs/Walk up hill (denies chest discomfort or shortness of br eath with 1 FOS) Past Family History Family History Father Family history of diabetes mellitus Other No family history of adverse response to anesthesia Past Surgical History Surgical History H/O nasal septoplasty + sinuplasty History of arthroscopy of left knee X 2 History of basal cell carcinoma (BCC) excision History of cardiac cath 2016 > stent x1 History of cataract surgery R/L History of colonoscopy History of esophagogastroduodenoscopy (EGD) History of removal of cyst Right index finger (+ bone spur) History of repair of anterior cruciate ligament of left knee History of surgery Removal of benign testicular growth History of thyroidectomy History of tonsillectomy History of total knee replacement right History of umbilical hernia repair History of vasectomy Hx of arthroscopy of right knee x2 S/P orchiopexy Status post biopsy of thyroid gland Past Anesthesia History No Hx of Anesthesia Complications and No Family Hx of Anesthesia Complications History of PONV No Hx of PONV and No Hx of Motion Sickness Social History Smoking Status: Former smoker Do You Dip or Chew Tobacco: No Smoking End Date: 1968 Hx Alcohol Use: Yes Alcohol type: beer, wine and hard liquor alcohol intake frequency: holidays/special occasions only Hx Substance Use: No substance use type: does not use Review of Systems Patient denies chest pain, shortness of breath, dyspnea on exertion, fever, chills, cough, wheezing, or palpitations. Physical Exam Vital Signs Vitals BP 120/68 P 63 TEMP 98.3 SP02 95% on RA RESP 17 Physical Patient resting comfortably in chair in no acute distress, alert and oriented, responding appropriately throughout visit Full cervical extension range of motion without pain TMD 3.5 finger breadths Mallampati Score < 3 Dentition: partial plate-removable and several crowns, denies chipped or loose teeth, implants or bridges Lungs: normal respiratory effort. Good air movement, clear throughout to auscultation, no adventitious breath sounds Cardiac: regular rate and rhythm, no murmurs noted Carotid arteries: negative bruit bilat Lab Results Anesthesia Preop Results Results Anesthesia Widget: WBC 8.69 K/ul (4.8-10.8) 02/02/24 Hgb 13.2 g/dl (14.0-18.0) L 02/02/24 Hct 40.4 % (42.0-52.0) L 02/02/24 Plt 216 K/uL (130-400) 02/02/24 Na 139 mmol/L (136-145) 02/02/24 K 4.2 mmol/L (3.5-5.1) 02/02/24 Cl 104 mmol/L (98-107) 02/02/24 CO2 29 mmol/L (21-32) 02/02/24 BUN 23 mg/dl (6-23) 02/02/24 Creat 1.12 mg/dl (0.6-1.4) 02/02/24 Glucose Level 105 mg/dl (70-99(Fasting)) H 02/02/24 PT 10.8 Seconds (9.0-12.0) 02/02/24 PTT 29 Seconds (21-31) 02/02/24 INR 1.0 (0.9-1.1) 02/02/24 HA1c 6.7 % (4.5-5.6) H 02/02/24 Blood Type O Positive 02/02/24 Antibody Screen NEGATIVE 02/02/24 Testing Electrocardiogram Date: 06/01/23 NSR, rate 79 bpm Chest X-Ray Date: 07/21/23 Unchanged bilateral pleural thickening. Stress Test Date: 04/29/23 Dobutamine MPHR 109% Negative for inducible ischemia Normal LV wall motion EF 55-59% Moderate cLVH Grade II diastolic dysfunction Moderate aortic valve sclerosis without aortic stenosis Mild aortic valve regurgitation Mildly enlarged aortic root Other Testing Abdomen CTA 01/17/24 Short-segment non flow limiting dissection flap of the celiac artery with aneurysmal degeneration measuring up to 16 mm in maximum diameter, unchanged.
--- NOTE | 2024-02-24 12:24 | History & Physical Report ---
Date of Service February 24, 2024 Assessment & Plan (1) Osteoarthritis of left knee: We will proceed with a left total knee arthroplasty. Postoperatively he will be started on aspirin for DVT prophylaxis and kept overnight in the hospital for postop medical management. He plans to go to [facility] and [place] upon discharge. History of Present Illness Chief Complaint: Osteoarthritis of the left knee. Primary Care Provider: Christopher Jordan MD Andrew is a pleasant 73-year-old male who underwent a right knee replacement in April 2023. He did very well with that. He is now dealing with left knee pain. X-rays have shown advanced arthritis of the left knee. After failing conservative treatment, he has elected proceed with a left total knee arthroplasty. Allergies Allergy/AdvReac Type Severity Reaction Status Date / Time bee venom protein (honey bee) Allergy Severe Lung field Verified 01/21/24 12:56 filled with fluid hornet venom Allergy Severe Anaphylaxis Verified 01/21/24 12:56 adhesive Allergy Mild Red rash Verified 01/21/24 12:56 morphine AdvReac Severe Fever, BP Verified 01/21/24 12:56 Home Medications Medication Instructions Recorded Confirmed Type acitretin 10 mg capsule 10 mg PO QAM 04/14/19 01/21/24 History albuterol sulfate 2.5 mg/3 mL 2.5 mg inhalation QID PRN SOB 04/14/19 01/21/24 History (0.083 %) solution for nebulization albuterol sulfate 90 mcg/actuation 1 puff inhalation Q6H PRN SOB 04/14/19 01/21/24 History aerosol inhaler atorvastatin 80 mg tablet 80 mg PO QDD 04/14/19 01/21/24 History azelastine 205.5 mcg (0.15 %) 2 spray intranasal BID 04/14/19 01/21/24 History nasal spray betamethasone dipropionate 0.05 % 1 applic topical UD 04/14/19 01/21/24 History topical ointment calcipotriene 0.005 % topical cream 1 applic topical UD 04/14/19 01/21/24 History calcium carbonate 500 mg-vitamin 2 tab PO QAM 04/14/19 01/21/24 History D3 5 mcg (200 unit) tablet (Oyster Shell Calcium-Vitamin D3) cetirizine 10 mg tablet 10 mg PO QAM 04/14/19 01/21/24 History epinephrine 0.3 mg/0.3 mL 0.3 mg IM Q3H PRN BEE STINGS 04/14/19 01/21/24 History injection syringe fluocinolone acetonide oil 0.01 % 5 drp otic (ear) 2XWK 04/14/19 01/21/24 History ear drops lisinopril 20 1 tab PO QAM 04/14/19 01/21/24 History mg-hydrochlorothiazide 12.5 mg tablet metformin 500 mg tablet 500 mg PO BID 04/14/19 01/21/24 History metoprolol succinate 25 mg 25 mg PO QAM 04/14/19 01/21/24 History tablet,extended release 24 hr nitroglycerin 0.4 mg sublingual 0.4 mg sublingual UD PRN Chest Pain 04/14/19 01/21/24 History tablet omeprazole 20 mg tablet,delayed 20 mg PO HS 04/14/19 01/21/24 History release levothyroxine 175 mcg tablet 175 mcg PO DAILYBB 03/21/21 01/21/24 History Wheeled Walker #1 ea 03/24/23 06/01/23 Rx budesonide 0.5 mg/2 mL suspension 0.5 mg irrigation QAM 04/16/23 01/21/24 History for nebulization fluticasone furoate 200 1 inh inhalation QA 04/16/23 01/21/24 History mcg-vilanterol 25 mcg/dose inhalation powder (Breo Ellipta) montelukast 10 mg tablet 10 mg PO PM 04/16/23 01/21/24 History (Singulair) tamsulosin 0.4 mg capsule 0.4 mg PO QPM 04/16/23 01/21/24 History oxycodone 5 mg tablet 5 mg PO Q4H PRN pain #30 tabs 05/25/23 01/21/24 Rx ondansetron HCl 4 mg tablet 4 mg PO Q6 PRN nausea #15 tabs 05/27/23 01/21/24 Rx azithromycin 250 mg tablet 250 mg PO HS #3 tabs 06/04/23 01/21/24 Rx bisacodyl 10 mg rectal suppository 10 mg IN DAILY PRN constipation 06/04/23 01/21/24 Rx #12 ea amoxicillin 500 mg tablet 2,000 mg (4 x 500 mg) PO ONCE #4 08/03/23 01/21/24 Rx tabs aspirin 81 mg tablet,delayed 81 mg PO QAM 01/21/24 01/21/24 History release guaifenesin 1,200 mg tablet, 1,200 mg PO BID 01/21/24 01/21/24 History extended release 12 hr (Mucinex) Past Med/Surg History Medical History Vocal cord paralysis, unilateral partial per pt, follows with [facility] ENT Pneumonia May 2023 > hospitalized at [place], resolved Cellulitis December 2023 > LLE saw [facility] dermatology for this, was on antibiotic, now resolved CKD (chronic kidney disease) Stage 3 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 Nielsen Chronic sinusitis History of COVID-19 x2 Most recent 08/2022- given paxlovid > resolved Ruptured lumbar disc History of basal cell cancer multiple, most recent: left nostril s/p excision Tinnitus Hard of hearing History of migraine headaches Sleep apnea CPAP (compliant) Psoriasis GERD (gastroesophageal reflux disease) controlled, stable per pt HTN (hypertension) controlled, stable per pt DM type 2 (diabetes mellitus, type 2) NIDDM History of myocardial infarction 2016 Hyperlipidemia Asthma rare res inh use; last albuterol use after extensive hike 12/2023 History of thyroid cancer s/p thyroidectomy/radiation Surgical History History of total knee replacement right History of cataract surgery R/L History of surgery Removal of benign testicular growth S/P orchiopexy History of vasectomy History of removal of cyst Right index finger (+ bone spur) Hx of arthroscopy of right knee x2 History of arthroscopy of left knee X 2 History of repair of anterior cruciate ligament of left knee History of umbilical hernia repair History of tonsillectomy History of esophagogastroduodenoscopy (EGD) History of colonoscopy History of basal cell carcinoma (BCC) excision History of cardiac cath 2016 > stent x1 History of thyroidectomy Status post biopsy of thyroid gland H/O nasal septoplasty + sinuplasty Family History Father Family history of diabetes mellitus Other No family history of adverse response to anesthesia Social History Smoking Status: Former smoker Smoking End Date: 1968; Second Hand Exposure: No; Do You Dip or Chew Tobacco: No; Tobacco Cessation Education Requested by Patient: No Hx Alcohol Use: Yes Alcohol type: beer, wine and hard liquor Hx Substance Use: No Preferred Language: Nauruan Communication Ability: Effective Blood Bank Technologist Required: No Beliefs That Will Affect Care: None Current Living Situation: Spouse Other Information That Helps Us Care for You: No Feels Safe at Home: Yes Safety Concerns: Feels Safe At This Time Assistive Devices: CPAP, Denture - Upper, Denture - Lower, Glasses and Hearing Aid - Bilateral Review of Systems All systems reviewed & are unremarkable except as noted in HPI & below. Physical Exam Physical examination of the left knee shows range of motion 0 to 120 degrees. No instability. Pain of the distal femoral condyles.. Constitutional WD/WN, vitals as above Eyes PERRL, conjunctivae normal, anicteric sclerae ENMT external ear and nose normal, oropharynx normal Neck trachea midline, no thyromegaly Respiratory normal respiratory effort Cardiovascular RRR, no murmur, no edema Gastrointestinal (Abdomen) normal bowel sounds, soft, nontender, no hepatosplenomegaly Psychiatric A+Ox3, euthymic affect Results & Data Results & Data Laboratory Results . Diagnostic Findings X-rays of the left knee show advanced osteoarthritis. There are signs of prior ACL fixation.. PG Care Time/CCT Total # of Minutes Spent Total Time Spent with Patient: Total time spent is greater than 50% in coordination of care (as documented) at patient's floor/unit and/or counseling patient: Coding Level of Care Code None Diagnoses Osteoarthritis of left knee M17.12
--- NOTE | 2024-02-28 06:12 | History & Physical Bridge Note ---
Date of Service February 28, 2024 History & Physical Bridge Note I have examined the patient, reviewed the History & Physical and in the interval since the performance of the History & Physical I have noted the following changes of clinical significance: no changes noted
[~2024-02-28 06:25] MED LIST changes: -ACETAMINOPHEN 500 MG TAB PO SCH; -BUPIVACAINE 0.5 % 5 MG/1 ML PF 10ML VIAL ONE; -FAMOTIDINE 20 MG TAB PO SCH; -GABAPENTIN 300 MG CAP PO SCH; -LR 500ML BOLUS, THEN 15ML/HR IV SCH; -LR 60ML/HR IV SCH; -ORTHO JOINT MIX INFIL SCH; -TRANEXAMIC ACID 1,000 MG **IV Intra-op IV SCH; -TRANEXAMIC ACID 1,000 MG **IV Pre-op IV SCH; -ceFAZolin 2000MG 2,000 MG/15 ML SYR IV SCH; -dexAMETHasone 4 MG TAB PO SCH
[2024-02-28] MEDS ORDERED: MIDAZOLAM HCL 1 MG/ML 2ML VIAL ONE (06:42)
[2024-02-28] MEDS ORDERED: fentaNYL citrate PF 100 MCG/2 ML VIAL ONE (06:42)
[2024-02-28] MEDS ORDERED: PROPOFOL IV EMULSION 10 MG/ML 100 ML VIAL IV ONE (06:43)
[2024-02-28] MEDS: GABAPENTIN 300 MG CAP PO SCH (06:52)
[2024-02-28] MEDS: dexAMETHasone**PF** 10 MG/ML VIAL IV SCH (06:52)
[2024-02-28] MEDS: LR 60ML/HR IV SCH (06:52)
[2024-02-28] MEDS: FAMOTIDINE 20 MG TAB PO SCH (06:52)
[2024-02-28] MEDS: ACETAMINOPHEN 500 MG TAB PO SCH ×2 (06:52→13:06)
[2024-02-28] MEDS: LR 500ML BOLUS, THEN 15ML/HR IV SCH (07:15)
[2024-02-28] MEDS ORDERED: ATROPINE SULFATE 0.1 MG/ML 10ML SYR IV PRN (07:26)
[2024-02-28] MEDS ORDERED: ePHEDrine sulfate 50 MG/ML AMP IV PRN (07:26)
[2024-02-28] MEDS ORDERED: ONDANSETRON INJ 2 MG/ML 2 ML VIAL IV PRN ×2 (07:26→10:22)
[2024-02-28] MEDS ORDERED: fentaNYL citrate PF 100 MCG/2 ML VIAL IV PRN (07:26)
[2024-02-28] MEDS: TRANEXAMIC ACID 1,000 MG **IV Pre-op IV SCH (07:29)
[2024-02-28] MEDS: ceFAZolin 2000MG 2,000 MG/15 ML SYR IV SCH ×2 (07:48→16:32)
[2024-02-28] MEDS: ROPIV 0.5% 246mg, Ketorolac 30mg, EPINEPHrine 0.5mg in NSS INFIL SCH (08:34)
[2024-02-28] MEDS: ORTHO JOINT ANESTHETIC ONE (08:34)
[2024-02-28] MEDS: TRANEXAMIC ACID 1,000 MG **IV Intra-op IV SCH (09:00)
--- NOTE | 2024-02-28 09:12 | Operative Report ---
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 All components were cemented in place with Biomet cement. Andrew arrived [facility] for the above procedure. He was seen in the preoperative holding area and the operative extremity was identified and signed. He was given a preoperative antibiotic, TXA, a spinal anesthetic and an adductor nerve block. He was taken back to the operating room and laid on the table in supine position. He was given basic sedation. The operative knee was then prepped and draped in sterile fashion. A timeout was done, and the patient and the operative extremity was properly identified. A midline incision was made directly over the patella. Dissection was taken down to the extensor mechanism. A midvastus arthrotomy was used. The medial retinaculum was released and the fat pad was mostly excised. The knee was flexed and the ACL, PCL, and meniscus were removed. A drill was sent down the center of the femoral canal followed by an intramedullary misa. Off that misa a distal femoral cutting block was placed. 9 mm was resected off the distal femur at 5 of valgus. A posterior referencing AP sizing guide was then placed on the distal femur. The femur measured to be a size 9. 2 drill holes were placed in 3 of external rotation. A 4-in-1 cutting block was then impacted into place. Anterior, posterior, and chamfer cuts were then made. The proximal tibia was then exposed. An external tibial alignment guide was placed. A tibial cut guide was then anchored in place and the proximal tibia was then resected. The posterior aspect of the knee was then opened up and any additional meniscus fragments and osteophytes were removed. The tibia measured to be a size F. The tibial plate was then placed in the appropriate rotation and the tibia was drilled and punched. Trial components were then placed. I used a size 13 medial congruent polyethylene insert. The knee was brought through a full range of motion and felt to be stable. The peg holes for the femoral component were then drilled. The patella was then everted and 9 mm was resected off the posterior aspect of the patella. The patella measured to be a size 34 oval. 3 peg holes were then drilled. A trial patella was placed. The knee was once again brought through a full range of motion and felt to be stable. Trial components were then removed. The surrounding soft tissues were injected with 100 cc of an orthopedic pain control cocktail. All components were then cemented into place with Biomet cement. The final polyethylene insert was then snapped into place. Once cement was dry the tourniquet was deflated. Hemostasis was obtained. A dilute betadyne lavage was then done for 3 minutes. The joint was then irrigated with normal saline solution. The midvastus arthrotomy was then closed with #1 Vicryl suture. The skin was closed with 2-0 Vicryl, 3-0V lock suture, and pasha. A soft compressive dressing was placed. He was then transferred to a hospital bed and taken to the postanesthesia care unit in stable condition. He tolerated the procedure well. Kvng Estrella PA-C, was present for the entire procedure. He was critical for patient positioning, prepping, draping, retraction exposure, wound closure and application of sterile dressing. I attest to the content of the Intraoperative Record and any orders documented therein. Any exceptions are noted below.
[2024-02-28] MEDS ORDERED: PHARMACY GLYCEMIC MGMT CONSULT PRN (10:22)
[2024-02-28] MEDS ORDERED: HYDROmorphone INJ 0.5 MG/0.5 ML SYR IV PRN (10:22)
[2024-02-28] MEDS ORDERED: NALOXONE HCL 0.4 MG/1 ML VIAL/CARP IV PRN (10:22)
[2024-02-28] MEDS ORDERED: METOCLOPRAMIDE HCL INJ 5 MG/ML 2 ML VIAL IV PRN (10:22)
[2024-02-28] MEDS ORDERED: ALBUTEROL 0.083% NEBU SOLN 3 ML VIAL INH PRN (10:22)
[2024-02-28] MEDS ORDERED: EPINEPHRINE 0.3 MG/0.3 ML IM PRN (10:22)
[2024-02-28] MEDS ORDERED: MAGNESIUM HYDROXIDE SUSP 30 ML UDC PO PRN (10:22)
[2024-02-28] MEDS ORDERED: NITROGLYCERIN SL 0.4 MG/TAB TAB SL PRN (10:22)
[2024-02-28] MEDS ORDERED: bisacodyL 10 MG SUPP PR PRN ×2 (10:22)
[2024-02-28] MEDS ORDERED: ALBUTEROL HFA 8 GM INHALER INH PRN (10:22)
--- NOTE | 2024-02-28 10:24 | XRay Report ---
XR knee LT 1 or 2V routine CLINICAL HISTORY: Postoperative evaluation. COMPARISON: Left knee radiographs July 07, 2023. FINDINGS: Alignment of the total left knee arthroplasty is anatomic. There is no periprosthetic frac ture or unexpected radiopaque foreign body. A screw within the distal left femur from previous ACL re pair is incidentally noted. There are skin pasha. IMPRESSION: Expected findings following total left knee arthroplasty. ACT 112: Negative or not required by law. Electronically signed by: Valente Lewis M.D. 02/28/2024 10:23 AM
--- NOTE | 2024-02-28 10:36 | Anesthesiology Progress Note ---
Date of Service February 28, 2024 Anesthesia Post Procedure Vital Signs Vital Signs: Temp Pulse Pulse Resp BP Pulse Ox O2 Del Method 02/28/24 10:26 36.4 C L 64 13 104/62 96 Room Air 02/28/24 10:00 64 14 111/54 L 95 Room Air 02/28/24 09:45 36.4 C L 69 15 126/58 L 96 Room Air 02/28/24 09:35 61 12 118/56 L 100 Oxymask 02/28/24 09:26 36.4 C L 68 12 120/55 L 95 Oxymask 02/28/24 06:46 36.7 C 76 20 141/71 H 96 Room Air O2 Flow Rate 02/28/24 10:26 02/28/24 10:00 02/28/24 09:45 02/28/24 09:35 9 02/28/24 09:26 9 02/28/24 06:46 Transfer of Care Handoff Completed per policy Notes Mental Status: alert / awake / arousable and participated in evaluation Patient Amnestic to Procedure: Yes Nausea / Vomiting: adequately controlled Pain: adequately controlled Airway Patency, RR, SpO2: stable & adequate BP & HR: stable & adequate Hydration State: stable & adequate Neuraxial Anesthesia: was administered and sensory block is resolving Anesthetic Complications: no major complications apparent and Pt Satisfied with anesthetic care
--- OUTSIDE RECORDS SUMMARY | 2024-02-28 10:38 | External Medical Summary | Summary of Care ---
Author Name Unknown Organization [facility] Address [address] [place] [address] Phone [phone] Care Team Providers Care Director Of Purchasing Name Role Phone Christopher Jordan MD Primary Care Provider [phone] Reason for Visit * Reason Onset Date Comments Appointment 03/26/2023 Surgery Clearanc e Encounter Details Date Type Department Care Team (Late st Contact Info) Description 03/26/2023 Telephone Pulmonary Medicine, [facility] [address] [facility] [place] [id number] Services, Scheduling [address] [place] [address] Appointment (Surgery Clearance) Allergies Active Allergy Reactions Criticality Noted Date Comments Hornet Venom High 09/23/2016 Lungs fill with fluid Morphine 12/10/2015 High blood pressure and temp spike Other Allergy (See Comments) Edema Other 12/15/2019 Adhesive/Bandaids documented as of this encounter (statuses as of 02/08/2024) Medications Medication Sig Dispensed Refills Start Date End Date Status Nebulizers (NEBULIZER COMPRESSOR) MISCIndications:As thma exacerbation,Mild persistent asthma without complication Inhale via nebulizer. Use as directed. With tubing supplies 1 Each 1 03/10/20 17 Active Cetirizine HCl 10 MG Capsule Take 1 Capsule by mouth in the morning. SEASONAL. 0 04/20/20 17 Active Calcium Carbonate-Vitamin D (OYSTER SHELL CALCIUM/D) 500-200 MG-UNIT TABS Take 2 Tablets by mouth in the morning. 0 Active ONETOUCH DELICA LANCETS FINE MISCIndications:Ty pe 2 diabetes mellitus with hemoglobin A1c goal of less than 8.0% ([facility]) Use to check blood sugars once per day 100 Each 3 08/11/20 19 Active CPAP every night at bedtime . 0 Active Full Kit Nebulizer SetIndications:Mil d persistent asthma without complication Nebulizer machine and supplies. 1 Each 0 12/25/19 22 Active Albuterol Sulfate (2.5 MG/3ML) 0.083% Inhalation Nebulization Solution (Proventil)Indicat ions:Mild persistent asthma without complication Inhale 1 Vial (2.5 mg) via nebulizer every 4 hours as needed for Wheezing. 120 mL 5 09/09/20 22 Active Ciclopirox 8 % External Solution Apply topically to affected area at bedtime. Apply over nail and surrounding skin. Apply daily over previous coat. After seven (7) days, may remove with alcohol and continue cycle. 3 Each 3 11/09/19 23 Active Additional Information Patient not taking.Reported on 02/02/2024 Fluorouracil 5 % External Cream (Efudex) Apply topically to affected area 2 times a day. apply to affected area with calcipotriene for 7-10 days (face/neck) 40 g 0 11/09/19 23 Active Additional Information Patient not taking.Reported on 02/02/2024 Hydrocortisone 2.5 % External Ointment Apply to face and neck 2-3 times daily until healed 60 g 0 11/16/19 23 Active aspirin enteric coated 81 MG TBEC Take 1 Tablet by mouth in the morning. 0 023 Discontinued(Me dication/Dose Changed) albuterol HFA (PROVENTIL HFA) 108 (90 BASE) MCG/ACT inhaler Inhale 2 Puffs by mouth every 4 hours as needed for Wheezing. 3 Inhaler 1 08/11/20 19 024 Discontinued(Re fill) zoster vac recomb adjuvanted (SHINGRIX) 50 MCG/0.5ML injectionIndicatio ns:Need for vaccination for zoster Inject 0.5 mL into a large muscle now and repeat dose in 60 to 180 days 1 Each 1 12/15/19 20 024 Discontinued(Pablo valdovinos preference/disc ontinuation) Zoster Vac Recomb Adjuvanted 50 MCG/0.5ML Intramuscular Suspension Reconstituted (Shingrix)Indicati ons:Need for vaccination for zoster Inject 0.5 mL into a large muscle now and repeat dose in 60 to 180 days 1 Each 1 01/29/20 21 024 Discontinued(Pablo valdovinos preference/disc ontinuation) Mometasone Furoate 0.1 % External CreamIndications:P soriasis vulgaris Apply to psoriasis on the face and genital area twice daily Wednesday thru Wednesday 30 g 3 02/12/20 21 024 Discontinued(Pablo tient preference/disc ontinuation) Calcipotriene 0.005 % External CreamIndications:P soriasis vulgaris Apply topically to affected area 2 times a day. Apply to psoriasis on the body twice daily on the weekends 180 g 1 02/12/20 21 023 Discontinued(Re fill) EPINEPHrine 0.3 MG/0.3ML Injection Solution Auto-injector (Autoinjector)Billie cations:Anaphylaxi s, sequela For a severe reaction: Place orange end against the outer thigh, press firmly, hold in place for 10 seconds and go to the Emergency room. 2 Each 1 03/03/20 21 024 Discontinued(Re fill) Nitroglycerin 0.4 MG Sublingual Tablet Sublingual (Nitrostat)Indicat ions:Coronary artery disease involving la posta coronary artery of la posta heart without angina pectoris,Old myocardial infarct Place 1 Tab under the tongue every 5 minutes as needed for Pain, Chest. 25 Tab 11 06/13/20 21 024 Discontinued(Re fill) Fluocinolone Acetonide 0.01 % Otic Oil (DermOtic) Place 4 drops in the ears up to three times a week 60 mL 4 12/25/19 22 024 Discontinued(Re fill) Betamethasone Dipropionate 0.05 % External OintmentIndication s:Psoriasis vulgaris Apply to psoriasis on the legs twice daily Wednesday thru Wednesday 150 g 4 04/24/20 22 023 Discontinued(Re fill) Atorvastatin Calcium 80 MG Oral Tablet (Lipitor) TAKE 1 TABLET BY MOUTH EVERY AFTERNOON 90 Tablet 3 06/08/20 22 023 Discontinued Ipratropium [place] 0.03 % Nasal Solution (Atrovent) Administer into nostril 2 Sprays every 12 hours . 90 mL 3 07/17/20 22 024 Discontinued(Ct dication List Clean Up) Metoprolol Succinate ER 25 MG Oral Tablet Extended Release 24 Hour (toPROL XL)Indications:Cor onary artery disease involving la posta coronary artery of la posta heart without angina pectoris TAKE 1 TABLET BY MOUTH DAILY 90 Tablet 3 08/07/20 22 023 Discontinued JeffTomónica Rogers In Vitro Strip (Glucose Blood)Indications: Type 2 diabetes mellitus with hemoglobin A1c goal of less than 8.0% (HCC) Use to check blood sugars once per day 100 Strip 3 08/07/20 22 023 Discontinued(Re fill) Benzonatate 100 MG Oral Capsule (Tessalon Perles)Indications :Upper respiratory tract infection, unspecified type,Bronchitis Take by mouth 1 Capsule as needed in the morning AND 1 Capsule as needed at noon AND 1 Capsule as needed in the evening for Cough. 30 Capsule 0 08/28/20 22 023 Discontinued(Pa tient preference/disc ontinuation) guaiFENesin-Codein e 100-10 MG/5ML Oral Syrup (Robitussin AC)Indications:Acu te cough Take 5 mL by mouth every 4 hours as needed for Cough. 120 mL 0 09/04/20 22 023 Discontinued(Pa tient preference/disc ontinuation) metFORMIN HCl 500 MG Oral Tablet (Glucophage)Indica tions:Type 2 diabetes mellitus with hemoglobin A1c goal of less than 8.0% (HCC) TAKE 1 TABLET BY MOUTH TWICE DAILY WITH MORNING AND EVENING MEALS 180 Tablet 3 09/20/20 22 023 Discontinued Lisinopril-hydroCH LOROthiazide 20-12.5 MG Oral Tablet Take 1 Tablet by mouth in the morning. 90 Tablet 3 10/21/20 22 023 Discontinued Levothyroxine Sodium 175 MCG Oral Tablet (Levoxyl)Indicatio ns:Postoperative hypothyroidism TAKE 1 TABLET BY MOUTH DAILY AT LEAST 1/2 HOUR PRIOR TO BREAKFAST OR OTHER MEDS 90 Tablet 3 10/21/20 22 023 Discontinued Breo Ellipta 200-25 MCG/ACT Inhalation Aerosol Powder Breath Activated (fluticasone furoate-vilanterol )Indications:Mild persistent asthma without complication INHALE 1 INHALATION BY MOUTH IN THE MORNING 180 Each 3 11/03/19 23 024 Discontinued(Re fill) Ciclopirox Olamine 0.77 % External Cream Apply topically to affected area 2 times a day. 90 g 2 11/09/19 23 023 Discontinued(Re fill) Tamsulosin HCl 0.4 MG Oral Capsule (Flomax) Take 1 Capsule by mouth in the morning. 90 Capsule 3 12/07/19 23 024 Discontinued Montelukast Sodium 10 MG Oral Tablet (Singulair)Indicat ions:Allergic rhinitis, unspecified seasonality, unspecified trigger Take 1 Tablet by mouth in the morning. 90 Tablet 3 12/07/19 23 024 Discontinued Azelastine HCl 0.1 % Nasal Solution (Astelin) Administer 2 Sprays into nostril in the morning and 2 Sprays before bedtime. 90 mL 3 12/07/19 23 024 Discontinued(Re fill) Omeprazole 20 MG Oral Capsule Delayed Release (PriLOSEC)Indicati ons:Gastroesophage al reflux disease, unspecified whether esophagitis present TAKE 1 CAPSULE BY MOUTH DAILY 90 Capsule 3 12/19/19 23 024 Discontinued Acitretin 10 MG Oral CapsuleIndications :Psoriasis vulgaris Take 1 Capsule by mouth in the morning. 90 Capsule 1 01/14/20 23 023 Discontinued(Re fill) Budesonide 0.5 MG/2ML Inhalation Suspension (Pulmicort)Indicat ions:Chronic rhinitis Place 1 ampule in 8 oz of saline and rinse the nose once a day 60 mL 12 02/27/20 23 024 Discontinued(Re fill) documented as of this encounter (statuses as of 02/08/2024) Active Problems Problem Noted Date Diagnosed Date Diabetes mellitus due to und erlying condition with stage 3 chronic kidney disease, with long-term current use of insulin 12/11/2022 Closed fracture of nasal bone with routine heali ng 04/18/2021 Dermatitis of both ear canals 09/24/2020 Hypertensive kidney disease with stage 3a chronic kidney disease 09/02/2020 Overview: Per CKD protocol HTN, goal below 140/90 11/18/2019 Postoperative hypothyroidism 11/18/2019 Diabetes mellitus with stage 3 chronic kidney di sease 03/24/2019 Psoriasis vulgaris 07/22/2018 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 History of nonmelanoma skin cancer 11/18/2017 Gastroesophageal reflux disease 07/23/2017 Old myocardial infarct 03/10/2017 Dyslipidemia 07/10/2016 Coronary artery disease invo lving la posta coronary artery of la posta heart without angina pectoris 07/07/2016 Mild persistent asthma without complication 01/24 Chronic rhinitis 02/13/2016 Type 2 diabetes mellitus wit h hemoglobin A1c goal of less than 8.0% 12/10/2015 Overview: ICD-10 update of inactive term Obstructive sleep apnea of adult 12/10/2015 Lumbar disc disease with radiculopathy 6 documented as of this encounter (statuses as of 02/08/2024) Resolved Problems Problem Noted Date Diagnosed Date Resolved Date Granulomatous lung disease 12/24/2021 0 12/11/2022 Hypertensive kidney disease with chronic kidney disease stage III 03/24/2019 09/05/2020 Overview: Per CKD protocol Hypothyroidism 07/23/2017 06/09/2021 ASCVD (arteriosclerotic card iovascular disease) 03/10/2017 07/23/2017 [facility] Clinical Trial [id number] 06/18/2016 06/23/2017 Overview: PI: Joel Jimenez MD RC: Chandu Vera Affordability and Real World Antiplatelet Treatment Effectiveness After Myocardial Infarction Study NSTEMI (non-ST elevated myoc ardial infarction) 06/18/2016 07/23/2017 HTN, age 0-18 02/13/2016 06/15/2016 History of thyroid cancer 02/13/2016 Psoriasis 12/10/2015 07/22/2018 documented as of this encounter (statuses as of 02/08/2024) Immunizations Name Administration Dates Next Due COVID-19 mRNA, LNP-s, No Pre serve, 2-Dose Series (Moderna) 12/22/2020,11/17/2020 COVID-19, mRNA, LNP-s, PF, B ooster, 100mcg/0.5mg (Moderna) 10/09/2021 Pneumococcal Conjugate Vacc, 13 Valent (Prevnar) 08/09/2015 Pneumococcal Polysaccharide PPV23 (Pneumovax) 08/23/2013 Season Influenza, Quad, PF, Adjuvanted, 65+ Yrs, IM (FLUAD) 08/13/2020 Seasonal Influenza Virus Vac cine, Unspecified Formulation 08/13/2020,08/11/2019,09/02/2018,08/09,07/13/2016 Seasonal Influenza, PF, 6 M & above, IM , (FluLaval or Fluzone) 09/02/2018,08/09/2017 Seasonal Influenza, Quadriva lent Hd (Fluzone Hd) 08/09/2023,07/31/2022,08/29/2021 Seasonal Influenza, Quadriva lent, No Preserve, IM 07/13/2016 Seasonal Influenza, Trivalen t, Adjuvanted, 65+ yrs 08/11/2019 TDAP (age 10 and older)(Boostrix) 01/14/2022, documented as of this encounter Social History Tobacco Use Types Packs/Day Years Used Date Smoking Tobacco: Former Cigarettes 1 3 1 987 - 1989 Pipe Cigars Smokeless Tobacco: Never Comments:When smoking smoked 2-3 years--Quit 15 years ago smoking cigars- smoked 2-3 /year when smoking cigars--Quit use of pipe in 1972 Alcohol Use Standard Drinks/Week Comments Yes 0 (1 standard drink = 0.6 oz pur e alcohol) 1-2 x weekly PHQ-2 Answer Date Recorded PHQ Adult Total Score 0 04/17/2022 Hunger Vital Sign Answer Date Recorded Within the past 12 months, y ou worried that your food would run out before you got the money to buy more. Never true 06/07/20 Within the past 12 months, t he food you bought just didn't last and you didn't have money to get more. Never true 06/07/2023 Sex and Gender Information Value Date Recorded Sex Assigned at Male 08/02/2023 7:21 PM EDT Gender Identity Male 04/17/2022 1:27 PM EDT Sexual Orientation Straight 08/11/2019 7: 32 AM EDT Job Start Date Occupation Industry Not on file Not on file Not on file documented as of this encounter Functional Status Functional Status Response Date of Assess ment Are you deaf or do you have serious difficulty h earing? No 06/16/2016 Are you blind or do you have serious difficulty seeing, even when wearing glasses? No 06/16/2016 Do you have serious difficul ty walking or climbing stairs? (5 years old or older) No 06/16/2016 Do you have difficulty dress ing or bathing? (5 years old or older) No 06/16/2016 Because of a physical, menta l, or emotional condition, do you have difficulty doing errands alone such as visiting a doctor s office or shopping? (15 years old or older) No 06/16/20 16 Cognitive Status Response Date of Assessm ent Because of a physical, menta l, or emotional condition, do you have serious difficulty concentrating, remembering, or making decisions? (5 years old or older) No 06/16/2016 documented as of this encounter Miscellaneous Notes * Telephone Encounter - Hari Cintron OSA - 02/08/2024 11:10 AM EDT Pt is scheduled for March 10 * Telephone Encounter - Hari Cintron OSA - 03/26/2023 10:37 AM EDT I will schedule once Dr. Hernandez's template is out for April * Telephone Encounter - Lois Mancia LPN - 03/26/2023 9:51 AM EDT No telepulm for surgery clearance * Telephone Encounter - Hari Cintron OSA - 03/26/2023 9:48 AM EDT Please advise if Telepulm is okay for clearance? * Telephone Encounter - Beulah Michel OSA - 03/26/2023 9:42 AM EDT Patient is scheduled for surgery on 05/24/23 [place] and needs surgery clearance can we get something scheduled for him? Thank you, documented in this encounter Plan of Treatment Upcoming Encounters Date Type Department Care Team (Late st Contact Info) Description 03/10/2024 11:40 AM EDT Telemedicine Pulmonary Medicine, [place] [address] [place] [address] Felix Mcdermott MD [address] [place] [address] Cart, Telemed Pulm Gw [address] [facility] [place] [id number] 03/14/2024 6:20 PM EDT Office Visit [facility] [address] [place] [id number] Christopher Jordan MD [address] [place] [address] 07/17/2024 1:00 PM EDT Office Visit Dermatology [facility] [place] [address] [place] [address] Eddie Garcia MD [address] [place] [address] Health Maintenance Due Date Last Done Comments Hepatitis C Screening 02/18/1966 Zoster Vaccines (1 of 2) 02/18/1998 Depression Screening 04/17/2023 04/17/2022 COVID-19 Vaccine (2022- season) 2023 10/09/2021, 12/22/2020, 11/17/2020 CKD PHOS USE SMARTSET 56237 07/24/2023 09/3 , 09/17/2020, 12/11/2019 Diabetic Eye Exam 12/29/2023 12/28/2022, , 12/28/2022, Additional history exists HbA1c 05/05/2024 11/05/2023, 02/23, 12/07/2022, Additional history exists GFR 07/05/2024 01/03/2024, 10/25, 08/27/2023, Additional history exists Albumin/Creatinine Ratio 11/05/2024 024, 07/24/2022, 04/30/2020, Additional history exists B-12 11/05/2024 11/05/2023, 06/27, 06/09/2021, Additional history exists CKD HGB USE SMARTSET 19210 11/05/202411/05, 12/07/2022, 07/24/2022, Additional history exists TSH 11/05/2024 11/05/2023, 02/23, 07/24/2022, Additional history exists Diabetic Foot Exam 11/08/2024 11/08/2023, 0 02/27/2022, 09/24/2020, Additional history exists DTaP,Tdap,and Td Vaccines (3 - Td or Tdap) 01/15/2032 01/14/2022, 09/23/2016 Colonoscopy Discontinued 08/07/2015 Colorectal Cancer Screening Discontinued Pneumococcal Vaccine: 65+ Years Completed 08/09/2015, 08/23/2013 Influenza Vaccine (FLU shot) Completed 08/09/2023, 07/31/2022, 08/29/2021, Additional history exists Cologuard Discontinued Fecal Occult Blood Test Discontinued GARDASIL-HPV IMMUNIZATION SERIES Aged Out No longer eligible based on patient's age to complete this topic Hepatitis B Aged Out No longer eligi ble based on patient's age to complete this topic MENINGOCOCCAL (MENACTRA/MENVEO) Aged Out No longer eligible based on patient's age to complete this topic Sigmoidoscopy Discontinued documented as of this encounter Medical Devices Not on filedocumented as of this encounter Advance Directives Latest Code Status on File Code Status Date Activated Date Inactivated Comments Full Code 06/16/2016 7:47 PM 06/18/2016 4:01 PM This order reflects the patients wishes and were consensually agreed upon. Question Answer Comments Discussion of Advance Directives occurred with: Patient Does the patient have a Living Will? No Does the patient have Health Care Power of Type Copy Examiner? No Care Teams Director Of Purchasing Relationship Specialty Start Date End Date Christopher Jordan MD [address] [place] [address] PCP - General Family Medicine 12/06/15 documented as of this encounter
--- OUTSIDE RECORDS SUMMARY | 2024-02-28 10:38 | External Medical Summary | Summary of Care ---
Author Name Unknown Organization [facility] Address [address] [place] [address] Phone [phone] Care Team Providers Care Nurses' Aide Name Role Phone Christopher Jordan MD Primary Care Provider [phone]- [phone] Reason for Visit * Reason Onset Date Comments Medication Refill 02/06/2024 Encounter Details Date Type Department Care Team (Late st Contact Info) Description 02/06/2024 Refill Dermatology [facility] [place] [address] [place] [address] Eddie Garcia MD [address] [place] [address] Psoriasis vulgaris Allergies Active Allergy Reactions Criticality Noted Date Comments Hornet Venom High 09/23/2016 Lungs fill with fluid Morphine 12/10/2015 High blood pressure and temp spike Other Allergy (See Comments) Edema Other 12/15/2019 Adhesive/Bandaids documented as of this encounter (statuses as of 02/07/2024) Medications Medication Sig Dispensed Refills Start Date End Date Status Nebulizers (NEBULIZER COMPRESSOR) MISCIndications:Ast hma exacerbation,Mild persistent asthma without complication Inhale via nebulizer. Use as directed. With tubing supplies 1 Each 1 7 Active Cetirizine HCl 10 MG Capsule Take 1 Capsule by mouth in the morning. SEASONAL. 0 7 Active Calcium Carbonate-Vitamin D (OYSTER SHELL CALCIUM/D) 500-200 MG-UNIT TABS Take 2 Tablets by mouth in the morning. 0 Active ONETOUCH DELICA LANCETS FINE MISCIndications:Typ e 2 diabetes mellitus with hemoglobin A1c goal of less than 8.0% ([facility]) Use to check blood sugars once per day 100 Each 3 9 Active CPAP every night at bedtime . 0 Active Full Kit Nebulizer SetIndications:Mild persistent asthma without complication Nebulizer machine and supplies. 1 Each 0 2 Active Albuterol Sulfate (2.5 MG/3ML) 0.083% Inhalation Nebulization Solution (Proventil)Indicati ons:Mild persistent asthma without complication Inhale 1 Vial (2.5 mg) via nebulizer every 4 hours as needed for Wheezing. 120 mL 5 2 Active Ciclopirox 8 % External Solution Apply topically to affected area at bedtime. Apply over nail and surrounding skin. Apply daily over previous coat. After seven (7) days, may remove with alcohol and continue cycle. 3 Each 3 3 Active Additional Information Patient not taking.Reported on 02/02/2024 Fluorouracil 5 % External Cream (Efudex) Apply topically to affected area 2 times a day. apply to affected area with calcipotriene for 7-10 days (face/neck) 40 g 0 3 Active Additional Information Patient not taking.Reported on 02/02/2024 Hydrocortisone 2.5 % External Ointment Apply to face and neck 2-3 times daily until healed 60 g 0 3 Active Atorvastatin Calcium 80 MG Oral Tablet (Lipitor) TAKE 1 TABLET BY MOUTH EVERY IN THE AFTERNOON 90 Tablet 3 3 Active Calcipotriene 0.005 % External Cream (Calcitrene)Indicat ions:Psoriasis vulgaris Apply topically to affected area 2 times a day. Apply to psoriasis on the body twice daily on the weekends 180 g 0 3 Active Metoprolol Succinate ER 25 MG Oral Tablet Extended Release 24 Hour (toPROL XL)Indications:[place] nary artery disease involving [place] coronary artery of [place] tribe heart without angina pectoris TAKE 1 TABLET BY MOUTH ONCE DAILY 90 Tablet 3 3 Active guaiFENesin ER 1200 MG Oral Tablet Extended Release 12 Hour Take 1,200 mg by mouth in the morning and 1,200 mg in the evening. 0 Active Aspirin 81 MG Oral Tablet Delayed Release Take 1 Tablet by mouth in the morning and 1 Tablet in the evening. 0 Active Ciclopirox Olamine 0.77 % External CreamIndications:Ti kerri corporis Apply topically to affected area 2 times a day. 90 g 2 3 Active Additional Information Patient not taking.Reported on 11/22/2023 Betamethasone Dipropionate 0.05 % External OintmentIndications :Psoriasis vulgaris Apply to psoriasis on the legs twice daily Wednesday thru Wednesday 150 g 4 3 Active Levothyroxine Sodium 175 MCG Oral Tablet (Levoxyl)Indication s:Postoperative hypothyroidism TAKE 1 TABLET BY MOUTH DAILY AT LEAST 1/2 HOUR PRIOR TO BREAKFAST OR OTHER MEDS 90 Tablet 3 3 Active metFORMIN HCl 500 MG Oral Tablet (Glucophage)Indicat ions:Type 2 diabetes mellitus with hemoglobin A1c goal of less than 8.0% (HCC) TAKE 1 TABLET BY MOUTH TWICE DAILY WITH MORNING AND EVENING MEALS 180 Tablet 3 3 Active Lisinopril-hydroCHL OROthiazide 20-12.5 MG Oral Tablet TAKE 1 TABLET BY MOUTH IN THE MORNING 90 Tablet 3 3 Active OneTouch Verio In Vitro Strip (Glucose Blood)Indications:T ype 2 diabetes mellitus with hemoglobin A1c goal of less than 8.0% (HCC) Use to check blood sugars once per day 100 Strip 3 3 Active Montelukast Sodium 10 MG Oral Tablet (Singulair)Indicati ons:Allergic rhinitis, unspecified seasonality, unspecified trigger TAKE 1 TABLET BY MOUTH IN THE MORNING 90 Tablet 3 4 Active Additional Information Patient taking differently:10 mg OralHS, Reported on 12/03/2023 Omeprazole 20 MG Oral Capsule Delayed Release (PriLOSEC)Indicatio ns:Gastroesophageal reflux disease, unspecified whether esophagitis present TAKE 1 CAPSULE BY MOUTH DAILY 90 Capsule 3 4 Active Additional Information Patient taking differently: 20 mg Oral HS, TAKE 1 CAPSULE BY MOUTH DAILY, Reported on 12/03/2023 Tamsulosin HCl 0.4 MG Oral Capsule (Flomax) TAKE 1 CAPSULE BY MOUTH IN THE MORNING 90 Capsule 3 4 Active Additional Information Patient taking differently:0.4 mg OralHS, Reported on 12/03/2023 Azelastine HCl 0.1 % Nasal Solution (Astelin) Administer 2 Sprays into nostril in the morning and 2 Sprays before bedtime. 90 mL 3 4 Active Budesonide 0.5 MG/2ML Inhalation Suspension (Pulmicort)Indicati ons:Chronic rhinitis Place 1 ampule in 8 oz of saline and rinse the nose once a day 60 mL 12 4 Active Fluticasone Furoate-Vilanterol 100-25 MCG/ACT Inhalation Aerosol Powder Breath Activated (BREO ellipta) Inhale 1 Puff by mouth in the morning. 60 Blister Dosing Unit 2 4 02/24/20 24 Active Additional Information Patient not taking.Reported on 02/02/2024 Nitroglycerin 0.4 MG Sublingual Tablet Sublingual (Nitrostat)Indicati ons:Coronary artery disease involving [place] coronary artery of [place] tribe heart without angina pectoris Place 1 Tablet under the tongue every 5 minutes as needed for Pain, Chest. 25 Tablet 3 4 Active Fluticasone Furoate-Vilanterol 200-25 MCG/ACT Inhalation Aerosol Powder Breath Activated (BREO ellipta)Indications :Mild persistent asthma without complication INHALE 1 INHALATION BY MOUTH IN THE MORNING 180 Each 3 4 Active Albuterol Sulfate HFA 108 (90 Base) MCG/ACT Inhalation Aerosol Solution Inhale 2 Puffs by mouth every 4 hours as needed for Wheezing. 18 g 3 4 Active Fluocinolone Acetonide 0.01 % Otic Oil (DermOtic) Place 4 drops in the ears up to three times a week 60 mL 4 4 Active Ketoconazole 2 % External CreamIndications:Se borrheic dermatitis Apply to dry skin on forehead and ears twice daily 30 g 3 4 Active Amoxicillin 500 MG Oral Capsule (Amoxil) For dental cleaning 0 4 Active Acitretin 10 MG Oral CapsuleIndications: Psoriasis vulgaris Take 1 Capsule by mouth in the morning. 90 Capsule 1 4 Active EPINEPHrine 0.3 MG/0.3ML Injection Solution Auto-injector (Autoinjector)Indic ations:Anaphylaxis, sequela For a severe reaction: Place orange end against the outer thigh, press firmly, hold in place for 10 seconds and go to the Emergency room. 2 Each 1 4 Active Acitretin 10 MG Oral CapsuleIndications: Psoriasis vulgaris Take 1 Capsule by mouth in the morning. 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 angina pectoris 07/07/2016 Mild persistent asthma without complication 01/24 Chronic rhinitis 02/13/2016 Type 2 diabetes mellitus wit h hemoglobin A1c goal of less than 8.0% 12/10/2015 Overview: ICD-10 update of inactive term Obstructive sleep apnea of adult 12/10/2015 Lumbar disc disease with radiculopathy 6 documented as of this encounter (statuses as of 02/07/2024) Resolved Problems Problem Noted Date Diagnosed Date Resolved Date Granulomatous lung disease 12/24/2021 0 12/11/2022 Hypertensive kidney disease with chronic kidney disease stage III 03/24/2019 09/05/2020 Overview: Per CKD protocol Hypothyroidism 07/23/2017 06/09/2021 ASCVD (arteriosclerotic card iovascular disease) 03/10/2017 07/23/2017 [facility] Clinical Trial [id number] 06/18/2016 06/23/2017 Overview: PI: Joel Jimenez MD RC: Chandu Vera Affordability and Real World Antiplatelet Treatment Effectiveness After Myocardial Infarction Study NSTEMI (non-ST elevated myoc ardial infarction) 06/18/2016 07/23/2017 HTN, age 0-18 02/13/2016 06/15/2016 History of thyroid cancer 02/13/2016 Psoriasis 12/10/2015 07/22/2018 documented as of this encounter (statuses as of 02/07/2024) Immunizations Name Administration Dates Next Due COVID-19 [...] 1 3 1 987 - 1989 Pipe 10/25/1986 - 0 10/25/1989 Cigars 10/25/1986 - 0 10/25/1989 Passive Smoke Exposure: Past Smokeless Tobacco: Never Comments:When smoking smoked 2-3 years--Quit 15 years ago smoking cigars- smoked 2-3 /year when smoking cigars--Quit use of pipe in 1972 Alcohol Use Standard Drinks/Week Comments Yes 0 (1 standard drink = 0.6 oz pur e alcohol) occasionally PHQ-2 Answer Date Recorded PHQ Adult Total Score 0 04/17/2022 Hunger Vital Sign Answer Date Recorded Within the past 12 months, y ou worried that your food would run out before you got the money to buy more. Never true 06/07/20 23 Within the past 12 months, t he [...] encounter Miscellaneous Notes * Telephone Encounter - Eddie Garcia MD - 02/07/2024 1:21 PM EDT Signed Prescriptions: Disp Refills Acitretin 10 MG Oral Capsule 90 Cap*1 Sig: Take 1 Capsule by mouth in the morning. Authorizing Provider: EDDIE GARCIA * Telephone Encounter - Nicole Marin LPN - 02/07/2024 1:09 PM EDTPending Prescriptions: Disp Refills Acitretin 10 MG Oral Capsule 90 Cap*1 Sig: Take 1 Capsule by mouth in the morning. * Telephone Encounter - Nicole Marin LPN - 02/07/2024 1:08 PM EDT Pending Prescriptions: Disp Refills Acitretin 10 MG Oral Capsule 90 Cap*1 Sig: Take 1 Capsule by mouth in the morning. 12/31/2023 (in office), Visit date not found (telemedicine) 07/17/2024 If no future appointments scheduled, and last appointment is greater than a year ago, please schedule patient for a follow-up appointment Last date the medication was ordered: 08/04/23 Patient Phone Numbers Labs: Lab Results Component Value Date/Time CREAT 1.0 01/03/2024 10:40 AM CREAT 1.1 01/12/2022 12:56 PM CREAT 1.2 09/17/2020 07:32 AM POTASSIUM 4.2 11/05/2023 07:56 AM POTASSIUM 4.7 09/17/2020 07:32 AM TSH 2.68 11/05/2023 07:56 AM TSH 1.56 09/17/2020 07:32 AM LDLCALC 65 09/03/2023 07:45 AM LDLCALC 63 03/17/2019 07:51 AM LDLDIRECT 68 10/13/2021 08:03 AM LDLDIRECT 66 04/30/2020 08:16 AM ALT 31 11/05/2023 07:56 AM ALT 34 09/17/2020 07:32 AM HGBA1C 6.5 (H) 11/05/2023 07:56 AM HGBA1C 6.1 (H) 09/17/2020 07:32 AM documented in this encounter Plan of Treatment Upcoming Encounters Date Type Department Care Team (Late st Contact Info) Description 03/10/2024 11:40 AM EDT Telemedicine Pulmonary Medicine, [place] [address] [place] [address] Felix Mcdermott MD [address] [place] [address] Cart, Telemed Pulm Gw [address] [place] [address] 03/14/2024 6:20 PM EDT Office Visit [facility] [address] [place] [id number] Christopher Jordan MD [address] [place] [address] 07/17/2024 1:00 PM EDT [facility] [address] [facility] [place] [address] Eddie Garcia MD [address] [place] [address] Health Maintenance Due Date Last Done Comments Hepatitis C Screening 02[birth year]18/1968 Zoster Vaccines (1 of 2) 02/18/1998 Depression Screening 04/17/2023 04/17/2022 COVID-19 Vaccine ( season) 2023 10/09/2021, 12/22/2020, 11/17/2020 CKD PHOS USE SMARTSET 29365 07/24/202306/27, 09/17/2020, 12/11/2019 Diabetic Eye Exam 12/29/2023 12/28/2022, , 12/28/2022, Additional history exists HbA1c 05/05/2024 11/05/2023, 02/23, 12/07/2022, Additional history exists GFR 07/05/2024 01/03/2024, 10/25, 08/27/2023, Additional history exists Albumin/Creatinine Ratio 11/05/2024 024, 07/24/2022, 04/30/2020, Additional history exists B-12 11/05/2024 11/05/2023, 06/27, 06/09/2021, Additional history exists CKD HGB USE SMARTSET 62363 11/05/202411/05, 12/07/2022, 07/24/2022, Additional history exists TSH [...] Not on filedocumented as of this encounter Visit Diagnoses Diagnosis Psoriasis vulgaris Other psoriasis documented in this encounter Advance Directives Latest Code Status on File Code Status Date Activated Date Inactivated Comments Full Code 06/16/2016 7:47 PM 06/18/2016 4:01 PM This order reflects the patients wishes and were consensually agreed upon. Question Answer Comments Discussion of Advance Directives occurred with: Patient Does the patient have a Living Will? No Does the patient have Health Care Power of Electrical Products Sales Engineer? No Care Teams Nurses' Aide Relationship Specialty Start Date End Date Christopher Jordan MD [address] [place] [address] PCP - General Family Medicine 12/06/15 documented as of this encounter
--- OUTSIDE RECORDS SUMMARY | 2024-02-28 10:38 | External Medical Summary | Summary of Care ---
Author Name Unknown Organization [facility] Address [address] [place] [address] Phone [phone] Care Team Providers Care Bone Density Technician Name Role Phone Christopher Jordan MD Primary Care Provider [phone]- [phone] Reason for Visit * Reason Onset Date Comments Health Maintenance 02/08/2024 Encounter Details Date Type Department Care Team (Late st Contact Info) Description 02/08/2024 Telephone [facility] [address] [place] [facility] [place] [address] Christopher Jordan MD [address] [place] [address] Health Maintenance Allergies Active Allergy Reactions Criticality Noted Date [...] directed. With tubing supplies 1 Each 1 03/10/2017 Active Cetirizine HCl 10 MG Capsule Take 1 Capsule by mouth in the morning. SEASONAL. 0 04/20/2017 Active Calcium Carbonate-Vitamin D (OYSTER SHELL CALCIUM/D) 500-200 MG-UNIT TABS Take 2 Tablets by mouth in the morning. 0 Active ONETOUCH DELICA LANCETS FINE MISCIndications:Typ e 2 diabetes mellitus with hemoglobin A1c goal of less than 8.0% ([facility]) Use to check blood sugars once per day 100 Each 3 08/11/2019 Active CPAP every night at bedtime . 0 Active Full Kit Nebulizer SetIndications:Mild persistent asthma without complication Nebulizer machine and supplies. 1 Each 0 12/24/2021 Active Albuterol Sulfate (2.5 MG/3ML) 0.083% Inhalation Nebulization Solution (Proventil)Indicati ons:Mild persistent asthma without complication Inhale 1 Vial (2.5 mg) via nebulizer every 4 hours as needed for Wheezing. 120 mL 5 09/09/2022 Active Ciclopirox 8 % External Solution Apply topically to affected area at bedtime. Apply over nail and surrounding skin. Apply daily over previous coat. After seven (7) days, may remove with alcohol and continue cycle. 3 Each 3 11/09/2022 Active Additional Information Patient not taking.Reported on 02/02/2024 Fluorouracil 5 % External Cream (Efudex) Apply topically to affected area 2 times a day. apply to affected area with calcipotriene for 7-10 days (face/neck) 40 g 0 11/09/2022 Active Additional Information Patient not taking.Reported on 02/02/2024 Hydrocortisone 2.5 % External Ointment Apply to face and neck 2-3 times daily until healed 60 g 0 11/16/2022 Active Atorvastatin Calcium 80 MG Oral Tablet (Lipitor) TAKE 1 TABLET BY MOUTH EVERY IN THE AFTERNOON 90 Tablet 3 05/07/2023 Active Calcipotriene 0.005 % External Cream (Calcitrene)Indicat ions:Psoriasis vulgaris Apply topically to affected area 2 times a day. Apply to psoriasis on the body twice daily on the weekends 180 g 0 05/10/2023 Active Metoprolol Succinate ER 25 MG Oral Tablet Extended Release 24 Hour (toPROL XL)Indications:[place] n[place] artery disease involving [place] coronary artery of [place] heart without angina pectoris TAKE 1 TABLET BY MOUTH ONCE DAILY 90 Tablet 3 06/04/2023 Active guaiFENesin ER 1200 MG Oral Tablet [...] 2 times a day. 90 g 2 06/25/2023 Active Additional Information Patient not taking.Reported on 11/22/2023 Betamethasone Dipropionate 0.05 % External OintmentIndications :Psoriasis vulgaris Apply to psoriasis on the legs twice daily Wednesday thru Wednesday 150 g 4 08/04/2023 Active Levothyroxine Sodium 175 MCG Oral Tablet (Levoxyl)Indication s:Postoperative hypothyroidism TAKE 1 TABLET BY MOUTH DAILY AT LEAST 1/2 HOUR PRIOR TO BREAKFAST OR OTHER MEDS 90 Tablet 3 08/14/2023 Active metFORMIN HCl 500 MG Oral Tablet (Glucophage)Indicat ions:Type 2 diabetes mellitus with hemoglobin A1c goal of less than 8.0% (HCC) TAKE 1 TABLET BY MOUTH TWICE DAILY WITH MORNING AND EVENING MEALS 180 Tablet 3 08/14/2023 Active Lisinopril-hydroCHL OROthiazide 20-12.5 MG Oral Tablet TAKE 1 TABLET BY MOUTH IN THE MORNING 90 Tablet 3 08/14/2023 Active OneTouch Verio In Vitro Strip (Glucose Blood)Indications:T ype 2 diabetes mellitus with hemoglobin A1c goal of less than 8.0% (HCC) Use to check blood sugars once per day 100 Strip 3 09/13/2023 Active Montelukast Sodium 10 MG Oral Tablet (Singulair)Indicati ons:Allergic rhinitis, unspecified seasonality, unspecified trigger TAKE 1 TABLET BY MOUTH IN THE MORNING 90 Tablet 3 11/01/2023 Active Additional Information Patient taking differently:10 mg OralHS, Reported on 12/03/2023 Omeprazole 20 MG Oral Capsule Delayed Release (PriLOSEC)Indicatio ns:Gastroesophageal reflux disease, unspecified whether esophagitis present TAKE 1 CAPSULE BY MOUTH DAILY 90 Capsule 3 11/01/2023 Active Additional Information Patient taking differently: 20 mg Oral HS, TAKE 1 CAPSULE BY MOUTH DAILY, Reported on 12/03/2023 Tamsulosin HCl 0.4 MG Oral Capsule (Flomax) TAKE 1 CAPSULE BY MOUTH IN THE MORNING 90 Capsule 3 11/01/2023 Active Additional Information Patient taking differently:0.4 mg OralHS, Reported on 12/03/2023 Azelastine HCl 0.1 % Nasal Solution (Astelin) Administer 2 Sprays into nostril in the morning and 2 Sprays before bedtime. 90 mL 3 11/15/2023 Active Budesonide 0.5 MG/2ML Inhalation Suspension (Pulmicort)Indicati ons:Chronic rhinitis Place 1 ampule in 8 oz of saline and rinse the nose once a day 60 mL 12 11/18/2023 Active Fluticasone Furoate-Vilanterol 100-25 MCG/ACT Inhalation Aerosol Powder Breath Activated (BREO ellipta) Inhale 1 Puff by mouth in the morning. 60 Blister Dosing Unit 2 11/26/2023 Active Additional Information Patient not taking.Reported on 02/02/2024 Nitroglycerin 0.4 MG Sublingual Tablet Sublingual (Nitrostat)Indicati ons:Coronary artery disease involving [place] coronary artery of [place] heart without angina pectoris Place 1 Tablet under the tongue every 5 minutes as needed for Pain, Chest. 25 Tablet 3 12/03/2023 Active Fluticasone Furoate-Vilanterol 200-25 MCG/ACT Inhalation Aerosol Powder Breath Activated (BREO ellipta)Indications :Mild persistent asthma without complication INHALE 1 INHALATION BY MOUTH IN THE MORNING 180 Each 3 12/25/2023 Active Albuterol Sulfate HFA 108 (90 Base) MCG/ACT Inhalation Aerosol Solution Inhale 2 Puffs by mouth every 4 hours as needed for Wheezing. 18 g 3 12/29/2023 Active Fluocinolone Acetonide 0.01 % Otic Oil (DermOtic) Place 4 drops in the ears up to three times a week 60 mL 4 12/28/2023 Active Ketoconazole 2 % External CreamIndications:Se borrheic dermatitis Apply to dry skin on forehead and ears twice daily 30 g 3 12/31/2023 Active Amoxicillin 500 MG Oral Capsule (Amoxil) For dental cleaning 0 01/28/2024 Active Acitretin 10 MG Oral CapsuleIndications: Psoriasis vulgaris Take 1 Capsule by mouth in the morning. 90 Capsule 1 02/07/2024 Active EPINEPHrine 0.3 MG/0.3ML Injection Solution Auto-injector (Autoinjector)Indic ations:Anaphylaxis, sequela For a severe reaction: Place orange end against the outer thigh, press firmly, hold in place for 10 seconds and go to the Emergency room. 2 Each 1 02/07/2024 Active documented as of this encounter (statuses as [...] Dyslipidemia 07/10/2016 Coronary artery disease invo lving [place] coronary artery of [place] heart without angina pectoris 07/07/2016 Mild persistent [...] ASCVD (arteriosclerotic card iovascular disease) 03/10/2017 07/23/2017 [facility] Clinical Trial [id number] 06/18/2016 06/23/2017 Overview: PI: Joel Jimenez MD [...] encounter Miscellaneous Notes * Telephone Encounter - Claire Villanueva LPN - 02/08/2024 11:31 AM EDT Care Gaps Comprehensive Care Outreach Last Office/Telemedicine Visit: 11/29/2023 (in office), 12/11/2022 (telemedicine) Next Office Visit: 03/14/2024 Hemoglobin AIC Results: Lab Results Component Value Date/Time HEMOGLOBIN A1C - [facility] 6.5 (H) 11/05/2023 07:56 AM HEMOGLOBIN A1C - [facility] 6.2 (H) 03/19/2023 07:55 AM HEMOGLOBIN A1C - [facility] 6.4 (H) 12/07/2022 07:49 AM HEMOGLOBIN A1C - [facility] 6.1 (H) 09/17/2020 07:32 AM HEMOGLOBIN A1C - [facility] 6.0 (H) 04/30/2020 07:53 AM HEMOGLOBIN A1C - [facility] 6.0 (H) 12/11/2019 07:28 AM BP Readings from Last 1 Encounters: 02/02/24 136/62 Reviewed Health Maintenance below: Health Maintenance Topic Date Due Hepatitis C Screening Never done Zoster Vaccines (1 of 2) Never done Depression Screening 04/17/2023 COVID-19 Vaccine ( season) 2023 CKD PHOS USE SMARTSET 28068 07/24/2023 Diabetic Eye Exam 12/29/2023 HbA1c 05/05/2024 Lab already ordered Eye marilu Care Gap Outreach Action Taken: Outside records requested documented in this encounter Plan of Treatment Upcoming Encounters Date Type Department Care Team (Late st Contact Info) Description 03/10/2024 11:40 AM EDT Telemedicine Pulmonary Medicine, [place] [address] [place] [address] Felix Mcdermott MD [address] [place] [address] Cart, Telemed Pul Gw [address] [place] [address] 03/14/2024 6:20 PM EDT Office Visit [facility] [address] [place] [id number] Christopher Jordan MD [address] [place] [address] 07/17/2024 1:00 PM EDT Office Visit Dermatology [facility] [place] [address] [place] [address] Eddie Garcia MD [address] [place] [address] Health Maintenance Due Date Last Done Comments Hepatitis C Screening 02/18[birth year]1966 Zoster Vaccines (1 of 2) 02/18/1998 Depression Screening 04/17/2023 04/17/2022 COVID-19 Vaccine ( - season) 2023 10/09/2021, 12/22/2020, 11/17/2020 CKD PHOS USE SMARTSET 30829 07/24/202306/27, 09/17/2020, 12/11/2019 Diabetic Eye Exam 12/29/2023 12/28/2022, , 12/28/2022, Additional history exists HbA1c 05/05/2024 11/05/2023, 02/23, 12/07/2022, Additional history exists GFR 07/05/2024 01/03/2024, 10/25, 08/27/2023, Additional history exists Albumin/Creatinine Ratio 11/05/2024 024, 07/24/2022, 04/30/2020, Additional history exists B-12 11/05/2024 11/05/2023, 06/27, 06/09/2021, Additional history exists CKD HGB USE SMARTSET 68464 11/05/202411/05, 12/07/2022, 07/24/2022, Additional history exists TSH [...] the patient have Health Care Power of [employer]? No Care Teams Bone Density Technician Relationship Specialty Start Date End Date Christopher Jordan MD [address] [place] [address] PCP - General Family Medicine 12/06/15 documented as of this encounter
--- OUTSIDE RECORDS SUMMARY | 2024-02-28 10:38 | External Medical Summary | Summary of Care ---
Author Name Unknown Organization [facility] Address [address] [place] [address] Phone [phone] Care Team Providers Care Verification Engineer Name Role Phone Christopher Jordan MD Primary Care Provider [phone] Reason for Visit * Reason Onset Date Comments Appointment 03/26/2023 Surgery Clearanc e Encounter Details Date Type Department Care Team (Late st Contact Info) Description 03/26/2023 Telephone Pulmonary Medicine, [facility] [address] [facility] [place] [id number] Services, Scheduling [address] [place] [address] Appointment (Surgery Clearance) Allergies Active Allergy Reactions [...] hemoglobin A1c goal of less than 8.0% ([facility]) Use to check blood sugars once per [...] Tablet Sublingual (Nitrostat)Indicat ions:Coronary artery disease involving white earth coronary artery of white earth heart without angina pectoris,Old myocardial infarct Place [...] Tablet 3 06/08/20 22 023 Discontinued Ipratropium [place] 0.03 % Nasal Solution (Atrovent) Administer into nostril 2 Sprays every 12 hours . 90 mL 3 07/17/20 22 024 Discontinued(Fl dication List Clean Up) Metoprolol Succinate ER 25 MG Oral Tablet Extended Release 24 Hour (toPROL XL)Indications:Cor onary artery disease involving white earth coronary artery of white earth heart without angina pectoris TAKE 1 TABLET [...] Dyslipidemia 07/10/2016 Coronary artery disease invo lving white earth coronary artery of white earth heart without angina pectoris 07/07/2016 Mild persistent [...] ASCVD (arteriosclerotic card iovascular disease) 03/10/2017 07/23/2017 [facility] Clinical Trial [id number] 06/18/2016 06/23/2017 Overview: PI: Joel Jimenez MD [...] 11:10 AM EDT Pt is scheduled for February via telepulmonary via Dr. Mcdermott * Telephone Encounter - Hari Cintron OSA [...] is scheduled for surgery on 05/24/23 in [facility] and needs surgery clearance can we get something scheduled for him? Thank you, documented in this encounter Plan of Treatment Upcoming Encounters Date Type Department Care Team (Late st Contact Info) Description 03/10/2024 11:40 AM EDT Telemedicine Pulmonary Medicine, [place] [address] [place] [address] Felix Mcdermott MD [address] [place] [address] Cart, Telemed Pulm Gw [address] [place] [address] 03/14/2024 6:20 PM EDT Office Visit [facility] [address] [place] [id number] Christopher Jordan MD [address] [place] [address] 07/17/2024 1:00 PM EDT Office Visit Dermatology [facility] [address] [place] [address] Eddie Garcia MD [address] [place] [address] Health Maintenance Due Date Last Done Comments Hepatitis C Screening 02/18/1966 Zoster Vaccines (1 of 2) 02/18/1998 Depression Screening 04/17/2023 04/17/2022 COVID-19 Vaccine ( season) 2023 10/09/2021, 12/22/2020, 11/17/2020 CKD PHOS USE SMARTSET 47778 07/24/2023 09/3 , 09/17/2020, 12/11/2019 Diabetic Eye Exam 12/29/2023 12/28/2022, , 12/28/2022, Additional history exists HbA1c 05/05/2024 11/05/2023, 02/23, 12/07/2022, Additional history exists GFR 07/05/2024 01/03/2024, 10/25, 08/27/2023, Additional history exists Albumin/Creatinine Ratio 11/05/2024 024, 07/24/2022, 04/30/2020, Additional history exists B-12 11/05/2024 11/05/2023, 06/27, 06/09/2021, Additional history exists CKD HGB USE SMARTSET 60672 11/05/202411/05, 12/07/2022, 07/24/2022, Additional history exists TSH [...] the patient have Health Care Power of Hand Booked Folder And Stitcher? No Care Teams Verification Engineer Relationship Specialty Start Date End Date Christopher Jordan MD [address] [place] [address] PCP - General Family Medicine 12/06/15 documented as of this encounter
[2024-02-28] MEDS ORDERED: GLUCAGON FOR INJ 1 MG VIAL IM PRN (11:15)
[2024-02-28] MEDS ORDERED: GLUCOSE 10 TAB/TUBE PO PRN (11:15)
[2024-02-28] MEDS ORDERED: CARBOHYDRATES FOR HYPOGLYCEMIA PO PRN (11:15)
[2024-02-28] MEDS ORDERED: DEXTROSE 50% 50 ML SYRINGE IV PRN (11:15)
[2024-02-28] MEDS ORDERED: GLUCOSE 40% GEL 15 GM TUBE PO PRN (11:15)
[2024-02-28] MEDS ORDERED: PROPOFOL IV EMULSION 10 MG/ML 20 ML VIAL IV ONE (11:54)
[2024-02-28] MEDS: KETOROLAC TROMETHAMINE 15 MG/ML VIAL IV SCH (12:15)
[2024-02-28] MEDS: SODIUM CHLORIDE 0.9% 1,000 ML IV SCH (12:15)
[2024-02-28] MEDS: INSULIN ASPART PER UNIT CHARGE SC SCH (13:09)
[2024-02-28] MEDS: LANTUS PER UNIT CHARGE SC ONE (13:09)
[2024-02-28] MEDS: oxyCODONE HCL IR 5 MG TAB (IMMEDIATE RELEASE) PO PRN (14:44)
[2024-02-28] MEDS: [UNRECOGNIZED DRUG - OTHER] SCH (16:22)
[2024-02-28] MEDS: ATORVASTATIN 40 MG TAB PO SCH (16:22)
[2024-02-28] MEDS: PANTOprazole 40 MG TAB PO SCH (20:48)
[2024-02-28] MEDS: TAMSULOSIN HCL 0.4 MG CAP PO SCH (20:48)
[2024-02-28] MEDS: MONTELUKAST SODIUM 10 MG TABLET PO SCH (20:48)
[2024-02-28] MEDS: DOCUSATE SODIUM 100 MG CAP PO SCH (20:49)
[2024-02-28] MEDS: ASPIRIN 81 MG ECTAB PO SCH (20:49)
[2024-02-28] MEDS: SENNA 8.6 MG TAB PO SCH (20:49)
[2024-02-28] MEDS: FLUOCINONIDE 0.05% OINT 15 GM TUBE EXT SCH (20:50)
[2024-02-28] MEDS: AZELASTINE HCL 0.1% NASAL 200 SPRAYS/27,400 MCG BTL SCH (20:50)
[2024-02-29] MEDS: LEVOTHYROXINE SODIUM 175 MCG TABLET PO SCH (05:39)
--- NOTE | 2024-02-29 06:45 | Orthopedic Progress Note ---
Date of Service February 29, 2024 Assessment & Plan (1) Status post left knee replacement: Overall he is doing very well. He is not having much pain in the left knee. He will be seen by physical therapy today for ambulation and range of motion exercises. He is on aspirin for DVT prophylaxis. He can be discharged home later today. He will follow-up orthopedics in 2 weeks. Subjective Andrew was seen and examined at bedside this morning. Overall he is doing very well. He is not having much pain in his left knee. He has been up and ambulating into the hallways. He has no complaints.. Review of Systems All systems reviewed & are unremarkable except as noted in HPI & below. Physical Exam On physical examination of the left knee, the dressing is clean and dry. His legs out full extension. He has active dorsiflexion plantarflexion of his left ankle.. Results & Data Results & Data Laboratory Results . Diagnostic Findings Postoperative x-rays of the left knee show the prosthesis to be in anatomic alignment without any evidence of fracture complication, or loosening.. PG Care Time/CCT Total # of Minutes Spent Total Time Spent with Patient: Total time spent is greater than 50% in coordination of care (as documented) at patient's floor/unit and/or counseling patient: Coding Level of Care Code 70233 Post Operative Follow-Up Diagnoses Status post left knee replacement Z96.652
--- NOTE | 2024-02-29 06:46 | Discharge Summary ---
Date of Service February 29, 2024 Admission HPI (Per Admitting) Andrew is a pleasant 73-year-old male who underwent a right knee replacement in April 2023. He did very well with that. He is now dealing with left knee pain. X-rays have shown advanced arthritis of the left knee. After failing conservative treatment, he has elected proceed with a left total knee arthroplasty. Admission Exam (Per Admitting) Physical examination of the left knee shows range of motion 0 to 120 degrees. No instability. Pain of the distal femoral condyles.. Principal Diagnosis Same as "Discharge Diagnosis" noted below under Discharge Instructions. Discharge Exam On physical examination of the left knee, the dressing is clean and dry. His legs out full extension. He has active dorsiflexion plantarflexion of his left ankle.. Discharge Data Procedures Performed Operation Date: 02/28/24 08:00 Actual Procedures p Left Total Knee Arthroplasty(Left) - Kvng Ramos DO Ordered Studies 02/28/24 05:00 US - OR guided needle placemen Routine Hospital Course (1) Status post left knee replacement: On February 28, 2024 Andrew arrived at [facility] and underwent a left knee replacement without complication. He had a spinal anesthetic. Postoperatively he was started on aspirin for DVT prophylaxis and transferred to the general orthopedic floors. His hospital course was uneventful. On postop day #1, his vital signs were stable and his pain was well-controlled. He was able to participate well with physical therapy doing ambulation and range of motion exercises. He was then discharged home. He will follow-up with orthopedics in 2 weeks. PG Care Time/CCT Total # of Minutes Spent Total Time Spent with Patient: Total time spent is greater than 50% in coordination of care (as documented) at patient's floor/unit and/or counseling patient: Discharge Plan Discharge Items Patient Disposition: Home - Self-Care Reason For Visit: Left Knee Degenerative Joint Disease Discharge Diagnosis: Left knee replacement Activity: Per Instructions section Non-emergency contact: Surgeon Call non-emergency contact if: your wound has increased redness and your wound has increased drainage Follow-up/Referrals: Christopher Jordan MD [Primary Care Provider] - Diet: Regular Addtl Attending Provider Instructions: Activity and Therapy Recommendations: * If you are using [facility] then therapy will be provided at your home until they feel you have accomplished all of your goals. * If you are using [facility] then Physical Therapy will be provided until they feel you are ready to start Outpatient Physical Therapy. * If you are not using home therapy then Outpatient Physical Therapy should start about 3-5 days from your day of surgery. Therapy will last about 6-10 weeks * It is important not to put a pillow under your knee when you are relaxing or sleeping. It is just as important to make sure you are getting your knee perfectly straight as it is to regain your knee bend. * You were shown a series of exercises in the hospital. Do these exercises three times each day including the exercises you were shown in physical therapy. * Get up and walk several times each day. For the first four weeks, try not to stand or walk for more than one hour at a time. If you do stand or walk for more than one hour, you will not hurt anything, but your leg will likely swell. * As you feel comfortable, you may change from the walker or crutches to a cane and then to independent walking. Medications: * Narcotic You will likely be sent home from the hospital with a prescription for the narcotic pain medication that worked best throughout your stay. * Cefadroxil -take the antibiotic twice a day for 10 days to help prevent infection. * Aspirin Most patients will be required to take Aspirin 81mg twice a day for 6 weeks after surgery. This is obtained [id number] and a prescription is not necessary. * Other medications may be prescribed for specific circumstances. If you have any questions, please call the office at . * Resume previous home medications unless otherwise instructed TEDs/Elastic Stockings: The white elastic stockings help limit swelling and prevent blood clots from forming in your legs.~ The more you wear them, the more they work. Wear them for six weeks. Dressing Care: The dressing can be changed after physical therapy on postop day #1. Daily dry dressing changes for a few days, especially if the incision is still draining some. If the incision is not draining then you may leave the pasha open to air. If there is a little bit of drainage or if the pasha are getting stuck on your clothing then cover the incision with a dry dressing. The pasha will be removed at your 2 week follow-up appointment. Showering: You may shower 5 days from the day of surgery as long as the incision is no longer draining. You may shower with the pasha exposed. Let soapy water run over the pasha and pat them dry. Do not scrub or soak the incision. Things To Watch For: * Drainage from the incision site that occurs more than one week after your surgery. * Increased redness at the incision site. * Fever above 102 degrees Fahrenheit. * Unusual chest pain or shortness of breath. * Call [facility] at with any of the above problems Follow-Up Visit: Follow-up with Dr. Ramos's PA (Kvng Estrella) 2-3 weeks after your day of surgery. He will remove your pasha and answer any questions. If you have any additional questions or concerns, Dr Ramos is usually in the office at the same time and will be available An appointment was probably scheduled when you signed-up for surgery in the office. If you have any questions call Office Instructions: More detailed instructions as well as Frequently Asked Questions were provided in a folder by our office when you signed-up for surgery. Please review these instructions when you get home. If you have any further questions or concerns, please feel free to call the office at [phone] Pending Studies at Discharge: No Stand-Alone Forms: [facility], Smoking Cessation Medications and DC Order Prescriptions: New cefadroxil 500 mg capsule 500 mg PO BID 10 Days Qty: 20 0RF Continued ondansetron HCl 4 mg tablet 4 mg PO Q6 PRN (Reason: nausea) Qty: 15 0RF amoxicillin 500 mg tablet 2,000 mg PO ONCE Qty: 4 3RF Rx Instructions: 4 tabs 1 hour prior to procedure (DME) Margoth Vazquez [facility] See Rx Instructions .MEDSUPPLY Qty: 1 0RF Rx Instructions: As directed metformin 500 mg Tablet 500 mg PO BID atorvastatin 80 mg Tablet 80 mg PO QDD albuterol sulfate 2.5 mg /3 mL (0.083 %) Solution For Nebulization 2.5 mg INHALATION QID PRN (Reason: SOB) acitretin 10 mg Capsule 10 mg PO QAM cetirizine 10 mg Tablet 10 mg PO QAM lisinopril-hydrochlorothiazide 20-12.5 mg Tablet 1 tab PO QAM calcipotriene 0.005 % Cream 1 applic TOPICAL UD Rx Instructions: Wednesday and Wednesday at bedtime nitroglycerin 0.4 mg Tablet, Sublingual 0.4 mg sublingual UD PRN (Reason: Chest Pain) metoprolol succinate 25 mg Tablet Extended Release 24 Hr 25 mg PO QAM albuterol sulfate 90 mcg/actuation Hfa Aerosol Inhaler 1 puff INHALATION Q6H PRN (Reason: SOB) betamethasone dipropionate 0.05 % Ointment 1 applic TOPICAL UD Rx Instructions: Wednesday - Wednesday at bedtime calcium carbonate-vitamin D3 [Oyster Shell Calcium-Vit D3] 500 mg(1,250mg) - 200 unit Tablet 2 tab PO QAM fluocinolone acetonide oil 0.01 % Drops 5 drp OTIC (EAR) 2XWK omeprazole 20 mg Tablet,Delayed Release (Dr/Ec) 20 mg PO HS epinephrine 0.3 mg/0.3 mL Syringe 0.3 mg IM Q3H PRN (Reason: BEE STINGS) azelastine 0.15 % (205.5 mcg) [place],Non-Aerosol 2 spray INTRANASAL BID levothyroxine 175 mcg tablet 175 mcg PO DAILYBB fluticasone furoate-vilanterol [Breo Ellipta] 200-25 mcg/dose Blister With Device 1 inh INHALATION QAM tamsulosin 0.4 mg Capsule 0.4 mg PO QPM montelukast [Singulair] 10 mg Tablet 10 mg PO PM Patient Comments: in the afternoon budesonide 0.5 mg/2 mL Suspension For Nebulization 0.5 mg irrigation QAM Patient Comments: per pt uses as a nasal irrigation in am azithromycin 250 mg Tablet 250 mg PO HS Qty: 3 0RF bisacodyl 10 mg suppository 10 mg W[place] DAILY PRN (Reason: constipation) Qty: 12 0RF guaifenesin [Mucinex] 1,200 mg Tablet Extended Release 12hr 1,200 mg PO BID oxycodone 5 mg Tablet 5 mg PO Q4H PRN (Reason: pain) Qty: 30 0RF aspirin 81 mg tablet,delayed release (DR/EC) 81 mg PO BID 42 Days Qty: 0 0RF Discharge Orders: Discharge Order (Routine); Ordered 02/29/24 Ordered By: Kvng Ramos Admission Data Admit Date/Time: 02/28/24 09:29 Attending Provider: Kvng Ramos Admit Provider: Kvng Ramos Primary Care Provider: Christopher Jordan
[2024-02-29] MEDS: BUDESONIDE 0.5 MG/2 ML VIAL (PULMICORT) INH SCH (07:58)
[2024-02-29] MEDS: CETIRIZINE HCL 10 MG TABLET PO SCH (08:32)
[2024-02-29] MEDS: FLUTICASONE/VILANTEROL 200/25MCG 14 PUFFS/INHALER INH SCH (08:32)
[2024-02-29] MEDS: LISINOPRIL/HCTZ 20/12.5MG 1 TAB TAB PO SCH (08:32)
[2024-02-29] MEDS: MULTIVITAMIN TAB PO SCH (08:32)
[2024-02-29] MEDS: METOPROLOL SUCC 25MG EXT REL TAB PO SCH (08:32)
[2024-02-29] MEDS: LANTUS PER UNIT CHARGE SC ONE (08:54)
== END 2024-02-29 10:27 | disposition home or self-care (01) ==
LOC: 3E 06:25 → ASU 06:25